=== PATIENT | male | born 1965 | race Caucasian/White ===

== ENCOUNTER 2022-05-06 22:34 | Emergency (ER) | payer OTHER, SELFPAY ==
--- OUTSIDE RECORDS SUMMARY | 2022-05-06 22:38 | XMS REPORT | Continuity of Care Document ---
:1965 Author Organization [facility] t Address [address] [place] [address] Care Team Providers Name Role Phone Leo Leo MD Attending Clinician LEO LEO Attending Clinician Unavailable Doctor Unassigned, [place] Attending Clinician Unavailable Provider, [facility] Attending Clinician Unavailable Naima Yang Attending Clinician Luis Daniel Gilbert Attending Clinician Pcp, Patient Does Not Have A Attending Clinician [phone] Nurse, [facility]gent Attending Clinician Unavailable Pob1, Acute [facility] Attending Clinician Unavailable NAIMA VALE Attending Clinician Unavailable ALDO TAI Attending Clinician Unavailable Lab, [facility] Attending Clinician Unavailable Erik Diamond Attending Clinician ERIK NG Attending Clinician Unavailable Payers Payer Name Policy Type Policy Number Effective Date Expiration Date S ource Problems Condition Condition Condition Status Onset Resolution Last Treating Co mments Source Name Details Category Date Date Treatment Clinician Date Type 2 Type 2 Disease Active Univers diabetes diabetes 7-15 ity of mellitus mellitus 00:00: [place] without without 00 Medical complicati complicati Br anch on, on, without without long-term long-term current current use of use of insulin insulin Obesity Obesity Disease Active Univers (BMI (BMI 7-15 ity of 35.0-39.9 35.0-39.9 [place] without 00 Medical comorbidit comorbidit Br anch y) y) Diabetes Diabetes Disease Active Unive rs due to due to 7-15 ity of undrl undrl 00:00: [place] condition condition 00 Medi ravi w oth w oth Branch diabetic diabetic opth comp opth comp Allergies, Adverse Reactions, Alerts Allergy Allergy Status Severity Reaction(s) Onset Inactive Treating Comm ents Source Name Type Date Date Clinician Penicill Propensi Active Rash Univer s ins ty to 7-15 ity of adverse 00:00: [place] reaction 00 Medical s Branch PENICILL Drug Active Rash Univers INS Class 7-15 ity of 00:00: [place] 00 Medical Branch NO KNOWN Drug Active Univers ALLERGIE Class ity of [facility] Social History Social Habit Start Date Stop Date Quantity Comments Source Exposure to Not sure [facility] SARS-CoV-2 (event) Medica l Branch Tobacco use and 2020-11-03 2020-11-03 Never used [facility] exposure 00:00:00 00:00:00 [facility] Sex [birth year] At [birth year] [facility] 00:00:00 00:00:00 [facility] Smoking Status Start Date Stop Date Source Unknown if ever smoked [facility] Never smoker [facility] Medications Ordered Filled Start Stop Current Ordering Indication Dosage Frequency Signature Comments Components Source Medication Medication Date Date Medication? Clinician (SIG) Name Name codeine-gua 2020- No 10mL Take 10 mL Univers ifenesin 12-08 07-27 by mouth ity of 10-100 mg/5 00:00: 04:59 every 6 [place] mL solution 00 :00 (six) Medical hours as Branch needed for Cough for up to 7 days. Indication s: cough codeine-gua 2020-0 2020- No 10mL Take 10 mL Univers ifenesin 7- 07-27 by mouth ity of 10-100 mg/5 00:00: 04:59 every 6 [place] mL solution 00 :00 (six) Medical hours as Branch needed for Cough for up to 7 days. Indication s: cough codeine-gua 2020-0 2020- No 10mL Take 10 mL Univers ifenesin 7-19 07- by mouth ity of 10-100 mg/5 00:00: 04:59 every 6 [place] mL solution 00 :00 (six) Medical hours as Branch needed for Cough for up to 7 days. Indication s: cough codeine-gua 2020-0 2020- No 10mL Take 10 mL Univers ifenesin 12-08-27 by mouth ity of 10-100 mg/5 00:00: 04:59 every 6 [place] mL solution 00 :00 (six) Medical hours as Branch needed for Cough for up to 7 days. Indication s: cough codeine-gua 2020-0 2020- No 10mL Take 10 mL Univers ifenesin 12-08-27 by mouth ity of 10-100 mg/5 00:00: 04:59 every 6 [place] mL solution 00 :00 (six) Medical hours as Branch needed for Cough for up to 7 days. Indication s: cough codeine-gua 2020-0 2020- No 10mL Take 10 mL Univers ifenesin 12-08 by mouth ity of 10-100 mg/5 00:00: 04:59 every 6 [place] mL solution 00 :00 (six) Medical hours as Branch needed for Cough for up to 7 days. Indication s: cough albuterol 2020-0 Yes [id number] 2{puff} Inhale 2 Univers 90 7-18 Puffs ity of mcg/actuati 00:00: every 6 [place] as on inhaler 00 (six) Medical hours as Branch needed for Wheezing or Shortness of Breath. azithromyci 2020-0 Yes [id number] 250mg Take 1 Univers n 7-18 tablet by ity of (ZITHROMAX 00:00: mouth [place] Z-VELIA) 250 00 daily. Medical mg tablet Take 500 Branch mg day 1, then 250 mg days 2 to 5. albuterol 2020-0 Yes [id number] 2{puff} Inhale 2 Univers 90 7-18 Puffs ity of mcg/actuati 00:00: every 6 [place] as on inhaler 00 (six) Medical hours as Branch needed for Wheezing or Shortness of Breath. azithromyci 2020-0 Yes [id number] 250mg Take 1 Univers n 7-18 tablet by ity of (ZITHROMAX 00:00: mouth [place] Z-VELIA) 250 00 daily. Medical mg tablet Take 500 Branch mg day 1, then 250 mg days 2 to 5. albuterol 2020-0 Yes [id number] 2{puff} Inhale 2 Univers 90 7-18 Puffs ity of mcg/actuati 00:00: every 6 [place] as on inhaler 00 (six) Medical hours as Branch needed for Wheezing or Shortness of Breath. azithromyci 2020-0 Yes [id number] 250mg Take 1 Univers n 7-18 tablet by ity of (ZITHROMAX 00:00: mouth [place] Z-VELIA) 250 00 daily. Medical mg tablet Take 500 Branch mg day 1, then 250 mg days 2 to 5. albuterol 2020-0 Yes [id number] 2{puff} Inhale 2 Univers 90 7-18 Puffs ity of mcg/actuati 00:00: every 6 [place] as on inhaler 00 (six) Medical hours as Branch needed for Wheezing or Shortness of Breath. azithromyci 2020-0 Yes [id number] 250mg Take 1 Univers n 7-18 tablet by ity of (ZITHROMAX 00:00: mouth [place] Z-VELIA) 250 00 daily. Medical mg tablet Take 500 Branch mg day 1, then 250 mg days 2 to 5. albuterol 2020-0 Yes [id number] 2{puff} Inhale 2 Univers 90 7-18 Puffs ity of mcg/actuati 00:00: every 6 [place] as on inhaler 00 (six) Medical hours as Branch needed for Wheezing or Shortness of Breath. azithromyci 2020-0 Yes [id number] 250mg Take 1 Univers n 7-18 tablet by ity of (ZITHROMAX 00:00: mouth [place] Z-VELIA) 250 00 daily. Medical mg tablet Take 500 Branch mg day 1, then 250 mg days 2 to 5. albuterol 2020-0 Yes [id number] 2{puff} Inhale 2 Univers 90 7-18 Puffs ity of mcg/actuati 00:00: every 6 [place] as on inhaler 00 (six) Medical hours as Branch needed for Wheezing or Shortness of Breath. azithromyci 2020-0 Yes [id number] 250mg Take 1 Univers n 7-18 tablet by ity of (ZITHROMAX 00:00: mouth [place] Z-VELIA) 250 00 daily. Medical mg tablet Take 500 Branch mg day 1, then 250 mg days 2 to 5. albuterol 2020-0 Yes [id number] 2{puff} Inhale 2 Univers 90 7-18 Puffs ity of mcg/actuati 00:00: every 6 [place] as on inhaler 00 (six) Medical hours as Branch needed for Wheezing or Shortness of Breath. azithromyci 2020-0 Yes [id number] 250mg Take 1 Univers n 7-18 tablet by ity of (ZITHROMAX 00:00: mouth [place] Z-VELIA) 250 00 daily. Medical mg tablet Take 500 Branch mg day 1, then 250 mg days 2 to 5. albuterol 2020-0 Yes [id number] 2{puff} Inhale 2 Univers 90 7-18 Puffs ity of mcg/actuati 00:00: every 6 [place] as on inhaler 00 (six) Medical hours as Branch needed for Wheezing or Shortness of Breath. azithromyci 2020-0 Yes [id number] 250mg Take 1 Univers n 7-18 tablet by ity of (ZITHROMAX 00:00: mouth [place] Z-VELIA) 250 00 daily. Medical mg tablet Take 500 Branch mg day 1, then 250 mg days 2 to 5. albuterol 2020-0 Yes [id number] 2{puff} Inhale 2 Univers 90 7-18 Puffs ity of mcg/actuati 00:00: every 6 [place] as on inhaler 00 (six) Medical hours as Branch needed for Wheezing or Shortness of Breath. azithromyci 2020-0 Yes [id number] 250mg Take 1 Univers n 7-18 tablet by ity of (ZITHROMAX 00:00: mouth [place] Z-VELIA) 250 00 daily. Medical mg tablet Take 500 Branch mg day 1, then 250 mg days 2 to 5. albuterol 2020-0 Yes [id number] 2{puff} Inhale 2 Univers 90 7-18 Puffs ity of mcg/actuati 00:00: every 6 [place] as on inhaler 00 (six) Medical hours as Branch needed for Wheezing or Shortness of Breath. azithromyci 2020-0 Yes [id number] 250mg Take 1 Univers n 7-18 tablet by ity of (ZITHROMAX 00:00: mouth [place] Z-VELIA) 250 00 daily. Medical mg tablet Take 500 Branch mg day 1, then 250 mg days 2 to 5. albuterol 2020-0 Yes [id number] 2{puff} Inhale 2 Univers 90 7-18 Puffs ity of mcg/actuati 00:00: every 6 [place] as on inhaler 00 (six) Medical hours as Branch needed for Wheezing or Shortness of Breath. azithromyci 2020-0 Yes [id number] 250mg Take 1 Univers n 7-18 tablet by ity of (ZITHROMAX 00:00: mouth [place] Z-VELIA) 250 00 daily. Medical mg tablet Take 500 Branch mg day 1, then 250 mg days 2 to 5. albuterol 2020-0 Yes [id number] 2{puff} Inhale 2 Univers 90 7-18 Puffs ity of mcg/actuati 00:00: every 6 [place] as on inhaler 00 (six) Medical hours as Branch needed for Wheezing or Shortness of Breath. azithromyci 2019-0 Yes [id number] 250mg Take 1 Univers n 7-18 tablet by ity of (ZITHROMAX 00:00: mouth [place] Z-VELIA) 250 00 daily. Medical mg tablet Take 500 Branch mg day 1, then 250 mg days 2 to 5. albuterol 2019-0 Yes [id number] 2{puff} Inhale 2 Univers 90 7-18 Puffs ity of mcg/actuati 00:00: every 6 [place] as on inhaler 00 (six) Medical hours as Branch needed for Wheezing or Shortness of Breath. azithromyci 2019-0 Yes [id number] 250mg Take 1 Univers n 7-18 tablet by ity of (ZITHROMAX 00:00: mouth [place] Z-VELIA) 250 00 daily. Medical mg tablet Take 500 Branch mg day 1, then 250 mg days 2 to 5. albuterol 2020-0 Yes [id number] 2{puff} Inhale 2 Univers 90 7-18 Puffs ity of mcg/actuati 00:00: every 6 [place] as on inhaler 00 (six) Medical hours as Branch needed for Wheezing or Shortness of Breath. azithromyci 2020-0 Yes [id number] 250mg Take 1 Univers n 7-18 tablet by ity of (ZITHROMAX 00:00: mouth [place] Z-VELIA) 250 00 daily. Medical mg tablet Take 500 Branch mg day 1, then 250 mg days 2 to 5. promethazin 2020-0 Yes 10mL Take 10 mL Univers e-codeine 7-18 by mouth 4 ity of 6.25-10 00:00: (four) [place] mg/5 mL 00 times Medical syrup daily as Branch needed for Cough. Indication s: cough albuterol 2020-0 Yes [id number] 2{puff} Inhale 2 Univers 90 7-18 Puffs ity of mcg/actuati 00:00: every 6 [place] as on inhaler 00 (six) Medical hours as Branch needed for Wheezing or Shortness of Breath. azithromyci 2020-0 Yes [id number] 250mg Take 1 Univers n 7-18 tablet by ity of (ZITHROMAX 00:00: mouth [place] Z-VELIA) 250 00 daily. Medical mg tablet Take 500 Branch mg day 1, then 250 mg days 2 to 5. promethazin 2020-0 Yes 10mL Take 10 mL Univers e-codeine 7-18 by mouth 4 ity of 6.25-10 00:00: (four) [place] mg/5 mL 00 times Medical syrup daily as Branch needed for Cough. Indication s: cough albuterol 2020-0 Yes [id number] 2{puff} Inhale 2 Univers 90 7-18 Puffs ity of mcg/actuati 00:00: every 6 [place] as on inhaler 00 (six) Medical hours as Branch needed for Wheezing or Shortness of Breath. azithromyci 2020-0 Yes [id number] 250mg Take 1 Univers n 7-18 tablet by ity of (ZITHROMAX 00:00: mouth [place] Z-VELIA) 250 00 daily. Medical mg tablet Take 500 Branch mg day 1, then 250 mg days 2 to 5. albuterol 2020-0 Yes [id number] 2{puff} Inhale 2 Univers 90 7-18 Puffs ity of mcg/actuati 00:00: every 6 [place] as on inhaler 00 (six) Medical hours as Branch needed for Wheezing or Shortness of Breath. azithromyci 2020-0 Yes [id number] 250mg Take 1 Univers n 7-18 tablet by ity of (ZITHROMAX 00:00: mouth [place] Z-VELIA) 250 00 daily. Medical mg tablet Take 500 Branch mg day 1, then 250 mg days 2 to 5. promethazin 2020-0 2020- No 10mL Take 10 mL Univers e-codeine 7-18 -26 by mouth 4 ity of 6.25-10 00:00: 04:59 (four) [place] mg/5 mL 00 :00 times Medical syrup daily as Branch needed for Cough for up to 7 days. Indication s: cough promethazin 2020-0 2020- No 10mL Take 10 mL Univers e-codeine 7-18 07-19 by mouth 4 ity of 6.25-10 00:00: 00:00 (four) [place] mg/5 mL 00 :00 times Medical syrup daily as Branch needed for Cough. Indication s: cough promethazin 2020-0 2020- No 10mL Take 10 mL Univers e-codeine 7-18 -18 by mouth 4 ity of 6.25-10 00:00: 00:00 (four) [place] mg/5 mL 00 :00 times Medical syrup daily as Branch needed for Cough for up to 7 days. Indication s: cough promethazin 2020-0 2020- No 10mL Take 10 mL Univers e-codeine -18 -18 by mouth 4 ity of 6.25-10 00:00: 00:00 (four) [place] mg/5 mL 00 :00 times Medical syrup daily as Branch needed for Cough for up to 7 days. Indication s: cough promethazin 2020-0 2020- No [id number] 5mL Take 5 mL Univers e-codeine -04 12- by mouth 4 ity of 6.25-10 00:00: 04:59 (four) [place] mg/5 mL 00 :00 times Medical syrup daily as Branch needed for Cough for up to 7 days. Indication s: acute pain promethazin 2020-0 2020- No [id number] 5mL Take 5 mL Univers e-codeine 7-15 -23 by mouth 4 ity of 6.25-10 00:00: 04:59 (four) [place] mg/5 mL 00 :00 times Medical syrup daily as Branch needed for Cough for up to 7 days. Indication s: acute pain promethazin 2020-0 2020- No [id number] 5mL Take 5 mL Univers e-codeine 7-15 07-23 by mouth 4 ity of 6.25-10 00:00: 04:59 (four) [place] mg/5 mL 00 :00 times Medical syrup daily as Branch needed for Cough for up to 7 days. Indication s: acute pain promethazin 2020-0 2020- No [id number] 5mL Take 5 mL Univers e-codeine 7-15 07-23 by mouth 4 ity of 6.25-10 00:00: 04:59 (four) [place] mg/5 mL 00 :00 times Medical syrup daily as Branch needed for Cough for up to 7 days. Indication s: acute pain promethazin 2020-0 2020- No [id number] 5mL Take 5 mL Univers e-codeine 7-15 07-23 by mouth 4 ity of 6.25-10 00:00: 04:59 (four) [place] mg/5 mL 00 :00 times Medical syrup daily as Branch needed for Cough for up to 7 days. Indication s: acute pain promethazin 2020-0 2020- No [id number] 5mL Take 5 mL Univers e-codeine 7-15 07-23 by mouth 4 ity of 6.25-10 00:00: 04:59 (four) [place] mg/5 mL 00 :00 times Medical syrup daily as Branch needed for Cough for up to 7 days. Indication s: acute pain promethazin 2020-0 2020- No [id number] 5mL Take 5 mL Univers e-codeine 7-15 07-23 by mouth 4 ity of 6.25-10 00:00: 04:59 (four) [place] mg/5 mL 00 :00 times Medical syrup daily as Branch needed for Cough for up to 7 days. Indication s: acute pain promethazin 2020-0 2020- No [id number] 5mL Take 5 mL Univers e-codeine 7-15 07-23 by mouth 4 ity of 6.25-10 00:00: 04:59 (four) [place] mg/5 mL 00 :00 times Medical syrup daily as Branch needed for Cough for up to 7 days. Indication s: acute pain promethazin 2020-0 2020- No [id number] 5mL Take 5 mL Univers e-codeine 7-15 07-23 by mouth 4 ity of 6.25-10 00:00: 04:59 (four) [place] mg/5 mL 00 :00 times Medical syrup daily as Branch needed for Cough for up to 7 days. Indication s: acute pain Diethylprop 2020-0 Yes TK 1 T PO U nivers ion HCl 75 6-30 ONCE D ity of mg TbSR 00:00: [place] 00 Medical Branch Diethylprop 2020-0 Yes TK 1 T PO U nivers ion HCl 75 6-30 ONCE D ity of mg TbSR 00:00: [place] 00 Medical Branch Diethylprop 2020-0 Yes TK 1 T PO U nivers ion HCl 75 6-30 ONCE D ity of mg TbSR 00:00: [place] 00 Medical Branch Diethylprop 2020-0 Yes TK 1 T PO U nivers ion HCl 75 6-30 ONCE D ity of mg TbSR 00:00: [place] 00 Medical Branch Diethylprop 2020-0 Yes TK 1 T PO U nivers ion HCl 75 6-30 ONCE D ity of mg TbSR 00:00: [place] 00 Medical Branch Diethylprop 2020-0 Yes TK 1 T PO U nivers ion HCl 75 6-30 ONCE D ity of mg TbSR 00:00: [place] 00 Medical Branch Diethylprop 2020-0 Yes TK 1 T PO U nivers ion HCl 75 6-30 ONCE D ity of mg TbSR 00:00: [place] [facility] Diethylprop 2020-0 Yes TK 1 T PO U nivers ion HCl 75 6-30 ONCE D ity of mg TbSR 00:00: [place] 00 Medical Branch Diethylprop 2020-0 Yes TK 1 T PO U nivers ion HCl 75 6-30 ONCE D ity of mg TbSR 00:00: [place] [facility] Diethylprop 2020-0 Yes TK 1 T PO U nivers ion HCl 75 6-30 ONCE D ity of mg TbSR 00:00: [place] [facility] Diethylprop 2020-0 Yes TK 1 T PO U nivers ion HCl 75 6-30 ONCE D ity of mg TbSR 00:00: [place] 00 Medical Branch Diethylprop 2020-0 Yes TK 1 T PO U nivers ion HCl 75 6-30 ONCE D ity of mg TbSR 00:00: [place] 00 Medical Branch Diethylprop 2020-0 Yes TK 1 T PO U nivers ion HCl 75 6-30 ONCE D ity of mg TbSR 00:00: [place] 00 Medical Branch Diethylprop 2020-0 Yes TK 1 T PO U nivers ion HCl 75 6-30 ONCE D ity of mg TbSR 00:00: [place] [address] Medical Branch Diethylprop 2020-0 Yes TK 1 T PO U nivers ion HCl 75 6-30 ONCE D ity of mg TbSR 00:00: [place] [facility] Diethylprop 2020-0 Yes TK 1 T PO U nivers ion HCl 75 6-30 ONCE D ity of mg TbSR 00:00: [place] 00 Medical Branch Diethylprop 2020-0 Yes TK 1 T PO U nivers ion HCl 75 6-30 ONCE D ity of mg TbSR 00:00: [place] 00 Medical Branch glimepiride 2020-0 Yes TK 1 T PO U nivers 2 mg tablet 6-28 BID ity of 00:00: [place] [facility] glimepiride 2020-0 Yes TK 1 T PO U nivers 2 mg tablet 6-28 BID ity of 00:00: [place] [facility] glimepiride 2020-0 Yes TK 1 T PO U nivers 2 mg tablet 6-28 BID ity of 00:00: [place] [address] Medical Branch glimepiride 2020-0 Yes TK 1 T PO U nivers 2 mg tablet 6- BID ity of 00:00: [place] [address] Medical Branch glimepiride 2020-0 Yes TK 1 T PO U nivers 2 mg tablet 6-28 BID ity of 00:00: [place] [address] Medical Branch glimepiride 2020-0 Yes TK 1 T PO U nivers 2 mg tablet 6-28 BID ity of 00:00: [place] [address] Medical Branch glimepiride 2020-0 Yes TK 1 T PO U nivers 2 mg tablet - BID ity of 00:00: [place] 00 Medical Branch glimepiride 2020-0 Yes TK 1 T PO U nivers 2 mg tablet -28 BID ity of 00:00: [place] [address] Medical Branch glimepiride 2020-0 Yes TK 1 T PO U nivers 2 mg tablet 6-28 BID ity of 00:00: [place] 00 Medical Branch glimepiride 2020-0 Yes TK 1 T PO U nivers 2 mg tablet 6-28 BID ity of 00:00: [place] [address] Medical Branch glimepiride 2020-0 Yes TK 1 T PO U nivers 2 mg tablet 6-28 BID ity of 00:00: [place] [address] Medical Branch glimepiride 2020-0 Yes TK 1 T PO U nivers 2 mg tablet 6-28 BID ity of 00:00: [place] [address] Medical Branch glimepiride 2020-0 Yes TK 1 T PO U nivers 2 mg tablet 6-28 BID ity of 00:00: [place] [facility] glimepiride 2020-0 Yes TK 1 T PO U nivers 2 mg tablet 6-28 BID ity of 00:00: [place] [facility] glimepiride 2020-0 Yes TK 1 T PO U nivers 2 mg tablet 6-28 BID ity of 00:00: [place] [address] Medical Branch glimepiride 2020-0 Yes TK 1 T PO U nivers 2 mg tablet 6-28 BID ity of 00:00: [place] [address] Medical Branch glimepiride 2020-0 Yes TK 1 T PO U nivers 2 mg tablet 6-28 BID ity of 00:00: [address] anastrozole 2020-0 Yes TK 1 T PO U nivers 1 mg tablet 6-24 ONCE A ity of 00:00: [address] anastrozole 2020-0 Yes TK 1 T PO U nivers 1 mg tablet 6-24 ONCE A ity of 00:00: [address] anastrozole 2020-0 Yes TK 1 T PO U nivers 1 mg tablet 6-24 ONCE A ity of 00:00: [address] anastrozole 2020-0 Yes TK 1 T PO U nivers 1 mg tablet 6-24 ONCE A ity of 00:00: [address] anastrozole 2020-0 Yes TK 1 T PO U nivers 1 mg tablet 6-24 ONCE A ity of 00:00: [address] anastrozole 2020-0 Yes TK 1 T PO U nivers 1 mg tablet 6-24 ONCE A ity of 00:00: [address] anastrozole 2020-0 Yes TK 1 T PO U nivers 1 mg tablet 6-24 ONCE A ity of 00:00: [address] anastrozole 2020-0 Yes TK 1 T PO U nivers 1 mg tablet 6-24 ONCE A ity of 00:00: [address] anastrozole 2020-0 Yes TK 1 T PO U nivers 1 mg tablet 6-24 ONCE A ity of 00:00: [address] anastrozole 2020-0 Yes TK 1 T PO U nivers 1 mg tablet 6-24 ONCE A ity of 00:00: [address] anastrozole 2020-0 Yes TK 1 T PO U nivers 1 mg tablet 6-24 ONCE A ity of 00:00: [place] [address] Medical Branch anastrozole 2020-0 Yes TK 1 T PO U nivers 1 mg tablet 6-24 ONCE A ity of 00:00: WEEK [place] [facility] anastrozole 2020-0 Yes TK 1 T PO U nivers 1 mg tablet 6-24 ONCE A ity of 00:00: WEEK [place] [facility] anastrozole 2020-0 Yes TK 1 T PO U nivers 1 mg tablet 6-24 ONCE A ity of 00:00: [place] [facility] anastrozole 2020-0 Yes TK 1 T PO U nivers 1 mg tablet 6-24 ONCE A ity of 00:00: [place] [facility] anastrozole 2020-0 Yes TK 1 T PO U nivers 1 mg tablet 6-24 ONCE A ity of 00:00: [place] [facility] anastrozole 2020-0 Yes TK 1 T PO U nivers 1 mg tablet 6-24 ONCE A ity of 00:00: WEEK [place] [address] Medical Branch INVOKANA 2020-0 Yes TK 1 T PO Univ ers 300 mg 6-13 ONCE D ity of tablet 00:00: [place] [address] Medical Branch INVOKANA 2020-0 Yes TK 1 T PO Univ ers 300 mg 6-13 ONCE D ity of tablet 00:00: [place] [address] Medical Branch INVOKANA 2020-0 Yes TK 1 T PO Univ ers 300 mg 6-13 ONCE D ity of tablet 00:00: [place] [address] Medical Branch INVOKANA 2020-0 Yes TK 1 T PO Univ ers 300 mg 6-13 ONCE D ity of tablet 00:00: [place] [address] Medical Branch INVOKANA 2020-0 Yes TK 1 T PO Univ ers 300 mg 6-13 ONCE D ity of tablet 00:00: [place] [address] Medical Branch INVOKANA 2020-0 Yes TK 1 T PO Univ ers 300 mg 6-13 ONCE D ity of tablet 00:00: [place] [address] Medical Branch INVOKANA 2020-0 Yes TK 1 T PO Univ ers 300 mg 6-13 ONCE D ity of tablet 00:00: [place] [address] Medical Branch INVOKANA 2020-0 Yes TK 1 T PO Univ ers 300 mg 6-13 ONCE D ity of tablet 00:00: [place] [address] Medical Branch INVOKANA 2020-0 Yes TK 1 T PO Univ ers 300 mg 6-13 ONCE D ity of tablet 00:00: [place] [address] Medical Branch INVOKANA 2020-0 Yes TK 1 T PO Univ ers 300 mg 6-13 ONCE D ity of tablet 00:00: [place] [facility] INVOKANA 2020-0 Yes TK 1 T PO Univ ers 300 mg 6-13 ONCE D ity of tablet 00:00: [place] [facility] INVOKANA 2020-0 Yes TK 1 T PO Univ ers 300 mg 6-13 ONCE D ity of tablet 00:00: [place] [facility] INVOKANA 2020-0 Yes TK 1 T PO Univ ers 300 mg 6-13 ONCE D ity of tablet 00:00: [place] [facility] INVOKANA 2020-0 Yes TK 1 T PO Univ ers 300 mg 6-13 ONCE D ity of tablet 00:00: [place] [facility] INVOKANA 2020-0 Yes TK 1 T PO Univ ers 300 mg 6-13 ONCE D ity of tablet 00:00: [place] [facility] INVOKANA 2020-0 Yes TK 1 T PO Univ ers 300 mg 6-13 ONCE D ity of tablet 00:00: [place] [facility] INVOKANA 2020-0 Yes TK 1 T PO Univ ers 300 mg 6-13 ONCE D ity of tablet 00:00: [place] [facility] testosteron 2020-0 Yes INJ 1 ML Un andrew e cypionate 5-16 IM ONCE A ity of 200 mg/mL 00:00: [place] injection Medical Branch testosteron 2020-0 Yes INJ 1 ML Un andrew e cypionate 5-16 IM ONCE A ity of 200 mg/mL 00:00: WEEK [place] injection Medical Branch testosteron 2020-0 Yes INJ 1 ML Un andrew e cypionate 5-16 IM ONCE A ity of 200 mg/mL 00:00: [place] injection Medical Branch testosteron 2020-0 Yes INJ 1 ML Un andrew e cypionate 5-16 IM ONCE A ity of 200 mg/mL 00:00: [place] injection Medical Branch testosteron 2020-0 Yes INJ 1 ML Un andrew e cypionate 5-16 IM ONCE A ity of 200 mg/mL 00:00: WEEK [place] injection Medical Branch testosteron 2020-0 Yes INJ 1 ML Un andrew e cypionate 5-16 IM ONCE A ity of 200 mg/mL 00:00: [place] injection Medical Branch testosteron 2020-0 Yes INJ 1 ML Un andrew e cypionate 5-16 IM ONCE A ity of 200 mg/mL 00:00: WEEK [place] injection Medical Branch testosteron 2020-0 Yes INJ 1 ML Un andrew e cypionate 5-16 IM ONCE A ity of 200 mg/mL 00:00: [place] injection Medical Branch testosteron 2020-0 Yes INJ 1 ML Un andrew e cypionate 5-16 IM ONCE A ity of 200 mg/mL 00:: [place] injection Medical Branch testosteron 2020-0 Yes INJ 1 ML Un andrew e cypionate 5-16 IM ONCE A ity of 200 mg/mL 00:00: [place] injection Medical Branch testosteron 2020-0 Yes INJ 1 ML Un andrew e cypionate 5-16 IM ONCE A ity of 200 mg/mL 00:00: [place] injection Medical Branch testosteron 2020-0 Yes INJ 1 ML Un andrew e cypionate 5-16 IM ONCE A ity of 200 mg/mL 00:00: [place] injection Medical Branch testosteron 2020-0 Yes INJ 1 ML Un andrew e cypionate 5-16 IM ONCE A ity of 200 mg/mL 00:00: [place] injection [facility] Branch testosteron 2020-0 Yes INJ 1 ML Un andrew e cypionate 5-16 IM ONCE A ity of 200 mg/mL 00:00: [place] injection Medical Branch testosteron 2020-0 Yes INJ 1 ML Un andrew e cypionate 5-16 IM ONCE A ity of 200 mg/mL 00:00: [place] injection [facility] Branch testosteron 2020-0 Yes INJ 1 ML Un andrwe e cypionate 5-16 IM ONCE A ity of 200 mg/mL 00:00: [place] injection Medical Branch testosteron 2020-0 Yes INJ 1 ML Un andrew e cypionate 5-16 IM ONCE A ity of 200 mg/mL 00:00: WEEK [place] injection Medical Branch Vital Signs Vital Name Observation Time Observation Value Comments Source Systolic blood 2020-11-03 13:15:00 150 mm[Hg] Univer sity of pressure [facility] Diastolic blood 2020-11-03 13:15:00 87 mm[Hg] Unive rsity of pressure [facility] Heart rate 2020-11-03 13:15:00 75 /min [facility] Body temperature 2020-11-03 13:15:00 37.28 Celina [facility] Respiratory rate 2020-11-03 13:15:00 18 /min [facility] Body height 2020-11-03 13:15:00 195.6 cm [facility] Body weight 2020-11-03 13:15:00 128.277 kg [facility] BMI 2020-11-03 13:15:00 33.54 kg/m2 [facility] Systolic blood 2020-06-17 14:17:00 126 mm[Hg] [facility]iver [facility] Diastolic blood 2020-06-17 14:17:00 80 mm[Hg] Unive rsity of [facility] Heart rate 2020-06-17 14:17:00 74 /min [facility] Body temperature 2020-06-17 14:17:00 36.89 Celina [facility] Respiratory rate 2020-06-17 14:17:00 18 /min [facility] Body height 2020-06-17 14:17:00 195.6 cm [facility] Body weight 2020-06-17 14:17:00 127.007 kg [facility] BMI 2020-06-17 14:17:00 33.20 kg/m2 [facility] Oxygen saturation in 2020-06-17 14:17:00 97 /min University of Arterial blood by [facility] Pulse oximetry Branch Systolic blood 2020-06-17 14:17:00 126 mm[Hg] Univer [facility]ity of [facility] Diastolic blood 2020-06-17 14:17:00 80 mm[Hg] Unive rsity of pressure [facility] Heart rate 2020-06-17 14:17:00 74 /min [facility] Body temperature 2020-06-17 14:17:00 36.89 Celina [facility] Respiratory rate 2020-06-17 14:17:00 18 /min [facility] Body height 2020-06-17 14:17:00 195.6 cm [facility] Body weight 2020-06-17 14:17:00 127.007 kg Universi ty [facility] BMI 2020-06-17 14:17:00 33.20 kg/m2 Universi ty [facility] Oxygen saturation in 2020-06-17 14:17:00 97 /min [facility] of Arterial blood by [facility] Pulse oximetry Branch Systolic blood 2019-12-08 17:43:00 133 mm[Hg] Univer sity of pressure [facility] Diastolic blood 2019-12-08 17:43:00 72 mm[Hg] Unive rsity of pressure [facility] Heart rate 2019-12-08 17:43:00 101 /min Universi ty [facility] Body temperature 2019-12-08 17:43:[address] [facility] Res[facility] rate 2019-12-08 17:43:00 20 /min [facility] Body height 2019-12-08 17:43:00 195.6 cm Universi [facility] Body weight 2019-12-08 17:43:[facility] 2019-12-08 17:43:00 35.57 kg/m2 Universi ty [facility] Oxygen saturation in 2019-12-08 17:43:00 96 /min [facility] Arterial blood by [facility] Pulse oximetry Branch Procedures Procedure Date / Time Performed Performing Clinician Sourc e POCT URINALYSIS AUTO 2020-11-03 13:22:00 Leo Leo [facility] SCANNED LAB RESULTS 2020-11-03 05:01:00 Doctor Unassigned, No Un [facility] acute hospital POCT FLU A AND B 2020-06-17 14:48:[address] [facility] (MOLECULAR) [facility] XR CHEST 2 VW COVID 2019-12-08 18:16:02 Luis Daniel Chiu [facility] Encounters Start End Encounter Admission Attending Care Care Encounter Source Date/Time Date/Time Type Type Clinicians Facility Department ID 2020-11-03 2020-11-03 Office KOBE Leo [id number] Univers 08:04:35 08:40:43 Visit Leo Stevens [id number] [id number] [phone] [facility] [address] [facility] 2020-11-03 2020-11-03 Outpatient R FELIPA [facility] [id number] Univers 08:00:00 08:00:00 LEO ity [facility] 2020-11-03 2020-11-03 Orders Doctor CURRY 1.2.840.114 [id number] Univers 00:00:00 00:00:00 Only Unassigned, ALEJO [id number] ity of [facility] [id number] Dipak as [phone] [address] 2020-06-17 2020-06-17 Urgent Provider, [facility] [id number] 07:58:18 09:28:23 Care [facility] [id number] Care [place] [id number] Professio [phone] [place] [address] [address] 2020-06-17 2020-06-17 Urgent Provider, [facility] [id number] Univers 07:58:18 09:28:23 Care Anene, N[facility] [id number] ity of [place] [id number] Dipak as Professio [phone] [address] Office [address] [facility] 2020-06-17 2020-06-17 Outpatient R [facility] [id number] Univers 08:00:00 08:00:00 ity [facility] 2020-06-17 2020-06-17 Letter Doctor CURRY 1.2.840.114 [id number] 00:00:00 00:00:00 (Out) Unassigned, ALEJO [id number] [facility] 4.2.7.2.686 [phone] [facility] 2020-06-17 2020-06-17 Letter Doctor CURRY 1.2.840.114 [id number] Univers 00:00:00 00:00:00 (Out) Unassigned, ALEJO [id number] ity of [facility] 4.2.7.2.686 Dipak as [phone] [address] 2019-12-30 2019-12-30 Refill Ebrahim, [facility] [id number] 00:00:00 00:00:00 [facility] [id number] [place] [id number] Professio [phone] [place] [address] [address] 2019-12-30 2019-12-30 Refill Ebrahim, [facility] 1.2.840.114 [id number] Univers 00:00:00 00:00:00 [facility] [id number] it y of [place] [id number] Dipak as Professio [phone] [address] Office [address] [facility] 2019-12-10 2019-12-10 Patient Pcp, [place] [id number] Univers 00:00:00 00:00:00 Secure Msg Patient HEALTH [id number] ity of Does Not [place] 4.2.7.2.686 Dipak as Have A City [phone] [facility] 2019-12-10 2019-12-10 Telephone Nurse, Dipak [facility] 1.2.840.114 [id number] Univers 00:00:00 00:00:00 Urgent HEALTH [id number] it [place]2.[place] [phone] [facility] 2019-12-10 2019-12-10 Patient Doctor [facility] 1.2.840.114 [id number] Univers 00:00:00 00:00:00 Secure Msg Unassigned, Health [id number] ity of [place] 4.2.7.2.686 Dipak as Professio [phone] [address] Office [address] [facility] 2019-12-08 2019-12-09 Urgent Pob1, Acute [facility] Clinic [facility] 1. [id number] Univers 12:33:07 12:29:35 Care Anene, N[facility] [id number] ity of [place] [id number] Dipak as Professio [phone] [address] Office [facility] 2019-12-09 2019-12-09 [facility] [id number] Univers 00:00:00 00:00:00 [facility] [id number] it y of [place] [id number] Dipak as Professio [phone] [address] Office [facility] 2019-12-08 2019-12-08 [facility] [id number] Univers 13:01:00 23:59:00 Encounter Luis Daniel [place] [id number] ity of [place] 4.2.7.2.686 [place] [facility] [phone] [facility] [address] [place] 2019-12-08 2019-12-08 Outpatient R KAVIN [facility] [id number] Univers 13:20:00 13:20:00 NAIMA ity [facility] 2019-12-05 2019-12-05 Outpatient R ALDO TAI [facility] [id number] Univers 20:20:00 20:20:00 ity of [facility] 2019-12-03 2019-12-03 Laboratory Lab, Adc Fam Pob I [facility] 1.2. [id number] [id number] Univers 13:42:24 14:02:24 Only [facility] Apprema 350.1.13.10 ity of [place] 4.2.7.2.686 Dipak as Professio [phone] [address] Office [facility] 2019-12-03 2019-12-03 [facility] [id number] Univers 13:40:00 13:40:00 CHINO ity [facility] 2019-12-03 2019-12-03 Letter Doctor ZAPIEN 1.2.840.114 [id number] Univers 00:00:00 00:00:00 (Out) Unassigned, ALEJO 350.1.13.10 ity of [place] [facility] [id number] Dipak as [phone] [address] Results Test Description Test Time Test Comments Results Result Comments Source POCT URINALYSIS, INSTRUMENT 2020-11-03 13:22:00 Test Item Value Reference Range Interpretation Comme nts POCT U SP GRAV (test code = 3255) 1.020 mg/dl 1.005-1.025 POCT PH U (test code = 3254) 5.5 mg/dl 5-8 POCT U LEUK EST (test code = 3263) Negative Negative - Negative POCT U NIT (test code = 3262) Negative Negative - Negative POCT U PROT (test code = 3259) Negtaive Negative - Negative POCT U GLU (test code = 3256) Negative - Negative POCT U KETONE (test code = 3258) Negative Negative - Negative POCT U UROBILI (test code = 3260) 0.2 mg/dl 0.2-1 POCT U BILI (test code = 3261) Negative Negative - Negative POCT U BLD (test code = 3257) Negative Negative - Negative POCT U COLOR (test code = 3266) yellow POCT U APPEAR (test code = 3267) clear Lab Interpretation (test code = 85646-5) Normal [facility] URINALYSIS, [id number] 13:22:00 Test Item Value Reference Range Interpretation Comments POCT U SP GRAV (test code = 1.020 mg/dl 1.005-1.025 3255) POCT PH U (test code = 3254) 5.5 mg/dl 5-8 POCT U LEUK EST (test code = Negative Negative - Negative 3263) POCT U NIT (test code = 3262) Negative Negative - Negative POCT U PROT (test code = Negtaive Negative - Negative 3259) POCT U GLU (test code = 3256) Negative - Negative POCT U KETONE (test code = Negative Negative - Negative 3258) POCT U UROBILI (test code = 0.2 mg/dl 0.2-1 3260) POCT U BILI (test code = Negative Negative - Negative 3261) POCT U BLD (test code = 3257) Negative Negative - Negative POCT U COLOR (test code = yellow 3266) POCT U APPEAR (test code = clear 3267) Lab Interpretation (test code Normal = 63851-7) [facility] FLU A AND B (MOLECULAR)2020-06-17 14:48:00 Test Item Value Reference Range Interpretation Comments POCT INFLUENZA A (test code = Negative Negative - Negative 3840) POCT INFLUENZA B (test code = Negative Negative - Negative 3841) Lab Interpretation (test code = Normal 39973-8) [facility] VW [id number] 18:31:09 Multifocal small ill-defined opacities predominantly in the mid/lower lobesconcerning for atypical/viral infection including Covid-19 pneumonia.Correlate clinically. Disclaimer: Generally, the findings on chest imaging in COVID-19 are notspecific, and overlap with other infections, including influenza, H1N1,SARS and MERS. According to the Centers for Disease Control (CDC) and recent statement ofthe [place] [employer], viral testing remains the only specificmethod of diagnosis. Confirmation with the viral test is required, even ifradiologic findings are suggestive of COVID-[address]. Preliminary Report Dictated by Resident: Gabino Ruffin MD., have reviewed this study and agree with theabove report.XR CHEST 2 VW COVID CLINICAL INDICATION: COVID +, worsening cough COMPARISON: None FINDINGS: Multifocal peripheral opacities within the mid/lower lobe predominanc econcerning for atypical/viral infection. No pleural effusion orpneumothorax. Prominence of the pulmonary hilar vasculature with a slightlynodular appearance, nonspecific but possibly lymphadenopathy. The cardiomediastinal silhouette is normal in size. No acute bony abnormality. [facility], Radiant Results Inft User - 12/08/2019 1:32 PM CDTXR CHEST 2 VW COVIDCLINICAL INDICATION: COVID +, worsening cough COMPARISON: NoneFINDINGS:Multifocal peripheral opacities within the mid/lower lobe predominanceconcerning for atypical/viral infection. No pleural effusion orpneumothorax. Prominence of the pulmonary hilar vasculature with a slightlynodular appearance, nonspecific but possibly lymphadenopathy.The cardiomediastinal silhouette is normal in size.No acute bony abnormality.IMPRESSIONMultifocal small ill-defined opacities predominantly in the mid/lower lobesconcerning for atypical/viral infection including Covid-19 pneumonia.Correlate clinically.Disclaimer: Generally, the findings on chest imaging in COVID-19 are notspecific, and overlap with other infections, including influenza, H1N1,SARS and MERS.According to the Centers for Disease Control (CDC) and recent statement ofthe [place] [employer], viral testing remains the only specificmethod of diagnosis. Confirmation with the viral test is required, even ifradiologic findings are suggestive of COVID-[address]Preliminary Report Dictatedby Resident: Gabino Stanley MD., have reviewed this study and agree with theabove report. [facility]
[2022-05-06] MEDS ORDERED: ASPIRIN 81 MG CHEWABLE TABLET ONE (22:59)
[2022-05-06] MEDS ORDERED: CLOPIDOGREL 75 MG TABLET ONE (22:59)
[2022-05-06] MEDS ORDERED: TENECTEPLASE 50 MG/10 ML VIAL IV ONE (23:00)
--- NOTE | 2022-05-06 23:00 | ER ---
Nurse's Notes [facility] Name: Joe Chowdhury Jr Age: 56 yrs Sex: Male : 1965 Arrival Date: 05/06/2022 Time: 22:43 Bed 12 Private MD: Diagnosis: ST elevation (STEMI) myocardial infarction of unspecified site Presentation: 05/06 22:50 Chief complaint: Patient states: I have been having some chest pain and I've been kd3 sweating a lot. Coronavirus screen: Vaccine status:. Ebola Screen: No symptoms or risks identified at this time. Initial Sepsis Screen: Does the patient meet any 2 criteria? No. Patient's initial sepsis screen is negative. Does the patient have a suspected source of infection? No. Patient's initial sepsis screen is negative. Risk Assessment: Do you want to hurt yourself or someone else? Patient reports no desire to harm self or others. Onset of symptoms was May 06, 2022. 22:50 Method Of Arrival: Ambulatory kd3 22:50 Acuity: FREDRICK 2 kd3 Triage Assessment: 05/07 00:03 General: Appears distressed, Behavior is calm, cooperative. Pain: Complains of pain in kd3 mid-sternal area. Neuro: Level of Consciousness is awake, alert, obeys commands, Oriented to person, place, time, situation. Cardiovascular: Capillary refill < 3 seconds in bilateral fingers. Respiratory: Airway is patent Trachea midline Respiratory effort is even, unlabored, Respiratory pattern is regular, symmetrical. Historical: - Allergies: 00:04 No Known Allergies; kd3 - Immunization history:: Adult Immunizations up to date. - Social history:: Smoking status: unknown. Screenin/15 23:58 [facility] ED Fall Risk Assessment (Adult) History of falling in the last 3 months, kd3 including since admission No falls in past 3 months (0 pts) Confusion or Disorientation No (0 pts) Intoxicated or Sedated No (0 pts) Impaired Gait No (0 pts) Mobility Assist Device Used No (0 pt) Altered Elimination No (0 pt) Score/Fall Risk Level 0 - 2 = Low Risk. Humpty Dumpty Scale Fall Assessment Tool (age< 18yrs) Age 13 years and above (1 pt) Gender Male (2 pts) Diagnosis Other diagnosis (1 pt) Cognitive Impairments Oriented to own ability (1 pt) Environmental Factors Patient placed in bed (2 pts) Response to Surgery/Sedation/Anesthesia More than 48 hours/ None (1 pt) Medication Usage Other medications/ None (1 pt) Fall Risk Score/ Level Low Fall Risk: </= 11 points. Abuse screen: Denies threats or abuse. Denies injuries from another. Nutritional screening: No deficits noted. Tuberculosis screening: No symptoms or risk factors identified. Fall Risk No fall in past 12 months (0 pts). No secondary diagnosis (0 pts). IV access (20 points). Ambulatory Aid- None/Bed Rest/Nurse Assist (0 pts). Gait- Normal/Bed Rest/Wheelchair (0 pts) Mental Status- Oriented to own ability (0 pts). Total Jasmine Fall Scale indicates No Risk (0-24 pts). Assessment: 23:29 Reassessment: report called to Jana JOVEL for [facility] CCU 2 Bed 18. bb Vital Signs: 22:50 BP 212 / 113; Pulse 73; Resp 23; Temp 98.2(TE); Pulse Ox 100% on R/A; Weight 124.74 kg; kd3 23:19 BP 180 / 125; Pulse 102; Resp 18; Pulse Ox 100% on R/A; kd3 23:20 BP 181 / 99; Pulse 98; Resp 18; Pulse Ox 100% on R/A; kd3 23:25 BP 178 / 98; Pulse 75; Resp 19; Pulse Ox 100% on R/A; kd3 23:38 BP 167 / 97; Pulse 57; Resp 20; Pulse Ox 100% on R/A; kd3 ED Course: 21:[address] [facility]. wm 22:43 Patient arrived in ED. kd3 22:44 Enrique Virk NP is PHCP. pm1 22:44 Flakito Chauhan MD is Attending Physician. pm1 22:50 Radha Patricio, BECKA is Primary Nurse. kd3 22:54 Triage completed. kd3 23:05 Inserted saline lock: 20 gauge in left forearm, using aseptic technique. Blood kl collected. 23:15 Pt accepted for transfer by Dr. Ludwin Sharma \T\ [id number]. wm 23:50 XRAY Chest (1 view) In Process Unspecified. EDMS 23:58 No provider procedures requiring assistance completed. Patient transferred, IV remains kd3 in place. 23:58 Patient has correct armband on for positive identification. Bed in low position. kd3 05/07 00:04 Arm band placed on right wrist. kd3 Administered Medications: 05/06 11:19 Drug: Metoprolol 5 mg Route: IVP; Site: right antecubital; kd3 11:43 Drug: Heparin (CT-Bolus with thrombolytic) - HEParin 60 units/kg {Co-Signature: edinson tinoco (Radha Patricio RN).} Route: IVP; Site: right antecubital; 22:55 CANCELLED (Physician Discretion): NS 0.9% 1000 ml IV at 1000 ml once pm1 23:00 Drug: NS 0.9% 1000 ml Route: IV; Rate: 1000 ml; Site: left forearm; bb 23:04 Drug: Zofran (Ondansetron) 4 mg Route: IVP; Site: left forearm; bb 23:07 Drug: Aspirin Chewable Tablet 324 mg Route: PO; bb 23:07 Drug: Tenecteplase 50 mg {Co-Signature: edinson (Radha Patricio RN).} Route: IV; Rate: kl calculated rate; Site: right antecubital; 23:10 Drug: morphine 4 mg Route: IVP; Infused Over: 4 mins; Site: left forearm; bb 23:11 Drug: PlaVIX (clopidogrel) 300 mg Route: PO; bb 23:25 Drug: Metoprolol 5 mg Route: IVP; Site: right antecubital; kd3 23:43 Drug: Heparin (CT Drip) 12 units/kg/hr - (HEParin 51976 units, D5W 500 ml) kl {Co-Signature: edinson (Radha Patricio RN).} Route: IV; Rate: calculated rate; Site: right antecubital; 23:46 Drug: Nitro Drip 5 mcg/min - (Nitroglycerin 50 mg, D5W 250 ml) Route: IV; Rate: 5 kd3 mcg/min; Site: left forearm; Medication: 05/07 00:04 VIS not applicable for this client. kd3 Outcome: 05/06 22:59 ER care complete, transfer ordered by MD. pm1 23:58 Transferred by helicopter kd3 23:58 Condition: stable 23:58 Discharge instructions given to patient, family, Instructed on follow up and referral plans. the need for transfer, Demonstrated understanding of instructions, follow-up care. 05/07 00:05 Patient left the ED. kd3 Signatures: Dispatcher [employer] EDMarianne Arzate, My Page RN, RN RN bb Marinas, Patrick, TRANSFORMER COIL WINDER TRANSFORMER COIL WINDER pm1 Melissa Matthew Kyli, RN RN kd3 Radha Patricio RN kd3 Corrections: (The following items were deleted from the chart) 00:01 05/06 23:19 BP 180 / 125; Pulse 57bpm; Resp 18bpm; Pulse Ox 100% RA; kd3 kd3
--- NOTE | 2022-05-06 23:00 | EDPHYS ---
Physician Documentation [facility] Name: Joe Chowdhury Jr Age: 56 yrs Sex: Male : 1965 Arrival Date: 05/06/2022 Time: 22:43 Bed 12 Private MD: ED Physician Flakito Chauhan HPI: 05/06 22:49 This 56 yrs old Male presents to ER via Ambulatory with complaints of Chest pain. pm1 22:49 The patient or guardian reports chest pain that is located primarily in the mid-sternal pm1 area. Onset: today, at 21:30. The pain does not radiate. Associated signs and symptoms: Pertinent positives: diaphoresis, shortness of breath, Pertinent negatives: nausea, vomiting. 22:49 The chest pain is described as a pressure. Duration: The patient or guardian reports a pm1 single episode, that is still ongoing, but improving. Modifying factors: The symptoms are alleviated by nothing. the symptoms are aggravated by nothing. Severity of pain: in the emergency department the pain has improved. The patient has not experienced similar symptoms in the past. The patient has not recently seen a physician. Historical: - Allergies: 05/07 00:04 No Known Allergies; kd3 - Immunization history:: Adult Immunizations up to date. - Social history:: Smoking status: unknown. ROS: 05/06 22:49 Constitutional: Negative for fever, chills, and weight loss. pm1 Abdomen/GI: Negative for abdominal pain, nausea, vomiting, diarrhea, and constipation, Back: Negative for injury and pain, MS/Extremity: Negative for injury and deformity, Skin: Negative for injury, rash, and discoloration, Neuro: Negative for headache, weakness, numbness, tingling, and seizure. Cardiovascular: Positive for chest pain, Negative for edema, palpitations. Respiratory: Positive for shortness of breath. All other systems are negative. Exam: 22:49 Constitutional: This is a well developed, well nourished patient who is awake, alert, pm1 and in no acute distress. Head/Face: Normocephalic, atraumatic. 22:49 Skin: Warm, dry with normal turgor. Normal color with no rashes, no lesions, and no evidence of cellulitis. MS/ Extremity: Pulses equal, no cyanosis. Neurovascular intact. Full, normal range of motion. 22:49 Eyes: Exam is negative for acute changes, Periorbital structures: no acute changes, Extraocular movements: no acute changes, Conjunctiva: no acute changes, no injection. 22:49 Cardiovascular: Exam negative for acute changes, Rate: normal, Rhythm: regular, Pulses: no pulse deficits are appreciated, Edema: is not appreciated. 22:49 Respiratory: Exam negative for acute changes, respiratory distress, shortness of breath, Breath sounds: are clear throughout. 22:49 Abdomen/GI: Exam negative for acute changes, Inspection: obese scar(s), are noted in the umbilical area and suprapubic area, Palpation: abdomen is soft and non-tender. 22:49 Neuro: Exam negative for acute changes, Orientation: is normal, Mentation: is normal, Motor: is normal, moves all fours. 22:49 ECG was reviewed by the Attending Physician. pm1 Vital Signs: 22:50 BP 212 / 113; Pulse 73; Resp 23; Temp 98.2(TE); Pulse Ox 100% on R/A; Weight 124.74 kg; kd3 23:19 BP 180 / 125; Pulse 102; Resp 18; Pulse Ox 100% on R/A; kd3 23:20 BP 181 / 99; Pulse 98; Resp 18; Pulse Ox 100% on R/A; kd3 23:25 BP 178 / 98; Pulse 75; Resp 19; Pulse Ox 100% on R/A; kd3 23:38 BP 167 / 97; Pulse 57; Resp 20; Pulse Ox 100% on R/A; kd3 MDM: 22:44 Patient medically screened. pm1 22:58 Data reviewed: vital signs. Data interpreted: Pulse oximetry: on room air is 100 %. pm1 Interpretation: normal. 05/06 22:49 Order name: Basic Metabolic Panel; Complete Time: 23:37 pm1 05/06 22:49 Order name: CBC with Diff; Complete Time: 23:34 pm1 05/06 22:49 Order name: LFT's; Complete Time: 23:37 pm1 05/06 22:49 Order name: Magnesium; Complete Time: 23:37 pm1 05/06 22:49 Order name: NT PRO-BNP; Complete Time: 23:37 pm1 05/06 22:49 Order name: PT-INR; Complete Time: 23:34 pm1 05/06 22:49 Order name: Troponin HS; Complete Time: 23:37 pm1 05/06 22:49 Order name: XRAY Chest (1 view) pm1 05/06 22:57 Order name: SARS RAPID; Complete Time: 23:41 pm1 05/06 23:02 Order name: Glucose, Ancillary Testing; Complete Time: 23:15 EDMS 05/06 22:49 Order name: Cardiac monitoring; Complete Time: 23:47 pm1 05/06 22:49 Order name: EKG - Nurse/Tech; Complete Time: 23:47 pm1 05/06 22:49 Order name: IV Saline Lock; Complete Time: 23:47 pm1 05/06 22:49 Order name: Labs collected and sent; Complete Time: 23:47 pm1 05/06 22:49 Order name: O2 Per Protocol; Complete Time: 23:58 pm1 05/06 22:49 Order name: O2 Sat Monitoring; Complete Time: 23:47 pm1 EC:49 Rate is 74 beats/min. Rhythm is regular, Normal Sinus Rhythm. QRS [place] is Normal. SD pm1 interval is normal. QRS interval is normal. QT interval is normal. ST Segment is elevated in leads V2, V3, V4, V5. Clinical impression: STEMI. Reviewed by me. Administered Medications: 11:19 Drug: Metoprolol 5 mg Route: IVP; Site: right antecubital; kd3 11:43 Drug: Heparin (IN-Bolus with thrombolytic) - HEParin 60 units/kg {Co-Signature: kd3 kl (Radha Patricio RN).} Route: IVP; Site: right antecubital; 22:55 CANCELLED (Physician Discretion): NS 0.9% 1000 ml IV at 1000 ml once pm1 23:00 Drug: NS 0.9% 1000 ml Route: IV; Rate: 1000 ml; Site: left forearm; bb 23:04 Drug: Zofran (Ondansetron) 4 mg Route: IVP; Site: left forearm; bb 23:07 Drug: Aspirin Chewable Tablet 324 mg Route: PO; bb 23:07 Drug: Tenecteplase 50 mg {Co-Signature: kd3 (Radha Patricio RN).} Route: IV; Rate: kl calculated rate; Site: right antecubital; 23:10 Drug: morphine 4 mg Route: IVP; Infused Over: 4 mins; Site: left forearm; bb 23:11 Drug: PlaVIX (clopidogrel) 300 mg Route: PO; bb 23:25 Drug: Metoprolol 5 mg Route: IVP; Site: right antecubital; kd3 23:43 Drug: Heparin (IN Drip) 12 units/kg/hr - (HEParin 05577 units, D5W 500 ml) kl {Co-Signature: kd3 (Radha Patricio RN).} Route: IV; Rate: calculated rate; Site: right antecubital; 23:46 Drug: Nitro Drip 5 mcg/min - (Nitroglycerin 50 mg, D5W 250 ml) Route: IV; Rate: 5 kd3 mcg/min; Site: left forearm; Disposition: 23:46 Critical Care:. alicia Disposition Summary: 05/06/22 22:59 Transfer Ordered Transfer Location: [facility] pm1 Reason: Higher level of care pm1 Condition: Serious pm1 Problem: new pm1 Symptoms: have improved pm1 Accepting Physician: (05/07/22 00:05) kd3 Diagnosis - ST elevation (STEMI) myocardial infarction of unspecified site pm1 Forms: - Medication Reconciliation Form pm1 - SBAR form pm1 Critical care time excluding procedures: 23:46 Critical care time: Bedside Care: 30 minutes, Consultation: 10 minutes, [facility] alicia Intervention: 10 minutes. Total time: 50 minutes Signatures: Dispatcher [employer] Marianne Aldana RN RN kl Anderson, Corey, MD MD cha Ballard, Brenda, RN RN bb Marinas, Patrick, RACHEL [employer] pm1 Radha Patricio RN RN kd3 Radha Patricio RN kd3 Corrections: (The following items were deleted from the chart) 22:55 22:54 NS 0.9% 1000 ml IV at 1000 ml once ordered. pm1 pm1 05/07 00:05 05/06 22:59 MD brown kd3
[2022-05-06] MEDS ORDERED: NA CHLORIDE 0.9% 1,000 ML ONE (23:05)
[2022-05-06] MEDS ORDERED: ONDANSETRON 4 MG/2 ML VIAL ONE (23:09)
[2022-05-06] MEDS ORDERED: MORPHINE 4 MG/ML SYR ONE (23:09)
[2022-05-06 23:10] LABS: Absolute Lymphocytes (CBC) 2.6 K/uL (0.7-4.9); Hematocrit 54.7 % (39.6-49.0); MCV 88.3 fL (80-100); MPV 7.6 fL (7.6-11.3)
[2022-05-06] MEDS ORDERED: METOPROLOL TARTRATE 5 MG/5 ML INJ IV ONE (23:17)
[2022-05-06 23:22] LABS: Protime INR 1.01
[2022-05-06] MEDS ORDERED: NITROGLYCERIN/D5W 50 MG/250 ML BTL IV ONE (23:32)
[2022-05-06] MEDS ORDERED: HEPARIN 5000 UNIT/ML 1 ML VIAL ONE (23:32)
[2022-05-06] MEDS ORDERED: HEPARIN/D5W 25,000 UNIT/500 ML BAG IV ONE (23:32)
[2022-05-06 23:35] LABS: Albumin 4.5 g/dL (3.4-5.0); Bilirubin Direct 0.1 mg/dL (0-0.2); Bilirubin Total 0.6 mg/dL (0.2-1.0); Magnesium 2.2 mg/dL (1.6-2.4); Potassium 3.8 mmol/L (3.5-5.1); Protein, Total 8.8 g/dL (6.4-8.2)
[2022-05-06 23:36] LABS: Troponin High Sensitivity 65.9 pg/mL (<58.9)
[2022-05-06 23:40] LABS: SARS-CoV-2 Antigen Rapid Res Negative (Negative)
[2022-05-07 00:14] VITALS: O2SAT 100
[2022-05-07 00:15] VITALS: TEMP 98.2
[2022-05-07 00:20] VITALS: BP 167/97
--- NOTE | 2022-05-07 17:25 | RAD REPORT ---
EXAM DESCRIPTION: RAD - Chest Single View - 05/06/2022 11:49 pm CLINICAL HISTORY: 56 years Male CHEST PAIN COMPARISON: None TECHNIQUE: AP view of the chest was obtained. FINDINGS: Cardiac silhouette is prominent in size. Central vessels are moderately increased. No effusions bilaterally. Streaky perihilar opacities bilaterally. IMPRESSION: Moderate central congestion. Bilateral perihilar atelectatic change versus infiltrate. Electronically signed by: Kierra Gardner MD 05/07/2022 12:00 AM [employer] Due to temporary technical issues with the PACS/Fluency reporting system, reports are being signed by the in house radiologists without review as a courtesy to insure prompt reporting. The interpreting radiologist is fully responsible for the content of the report.
== END 2022-05-07 00:05 | disposition short-term general hospital (02) ==
LOC: ER 22:34
DX: I21.3 ST elevation (STEMI) myocardial infarction of unspecified site (principal); Z20.822 Contact with and (suspected) exposure to COVID-19
CPT/HCPCS: 92977; 85025; 80048; 36415; 83735; 85610; 82947; 80076; 84484; 83880; 71045; 99285; 87811; J1644 ×2; J3101; J7030; J2405

== ENCOUNTER 2023-04-13 20:24 | Emergency (ER) | payer OTHER ==
--- OUTSIDE RECORDS SUMMARY | 2023-04-13 20:34 | XMS REPORT | Continuity of Care Document ---
:1965 Author Organization [facility] t Address [address] [place] [address] Care Team Providers Name Role Phone Philomena Landis DO Primary Care Physician DIMA SHARMA Attending Clinician Unavailable Gerber Guzman MD Attending Clinician Dima Sharma MD Attending Clinician Ada Henriquez Attending Clinician Unavailable My Chavira MA Attending Clinician Unavailable KALEN BOND Attending Clinician Unavailable Julia Ball RN Attending Clinician Unavailable AUTUMN RIVERA Attending Clinician Unavailable Dima Sharma MD Attending Clinician Autumn Rivera MD Attending Clinician Racheal Miranda Attending Clinician Renny Campbell MD Attending Clinician RNENY CAMPBELL Attending Clinician Unavailable Doctor Unassigned, [place] Attending Clinician Unavailable Provider, [facility] Attending Clinician Unavailable Isela Yang Attending Clinician Luis Daniel Gilbert Attending Clinician Pcp, Patient Does Not Have A Attending Clinician [phone] Nurse, Dipak Urgent Attending Clinician Unavailable Pob1, Acute [facility] Attending Clinician Unavailable ISELA ESCOBEDO Attending Clinician Unavailable ALDO TAI Attending Clinician Unavailable Lab, [facility] Pob I Attending Clinician Unavailable Erik Diamond Attending Clinician ERIK NG Attending Clinician Unavailable DIMA SHARMA Admitting Clinician Unavailable Payers Payer Name Policy Type Policy Number Effective Date Expiration Date S ruth ann [employer] [id number] 2022 00:00:00 ACCESS Problems Condition Condition Condition Status Onset Resolution Last Treating Co mments Source Name Details Category Date Date Treatment Clinician Date STEMI (ST STEMI (ST Disease Recurre 2021-[address] elevation elevation nce 2-18 [facility] myocardial myocardial 00:00: Me dical infarction infarction 00 Ce nter ) ) CAD CAD Disease Active 2021-[address] [facility] (coronary (coronary 2-16 [facility] artery artery 00:00: Medical disease) disease) 00 Center Type 2 Type 2 Disease Active Univers diabetes diabetes 7-15 ity of mellitus mellitus 00:00: [place] without without 00 Medical complicati complicati Br anch on, on, without without long-term long-term current current use of use of insulin insulin Obesity Obesity Disease Active Univers (BMI (BMI 7-15 ity of 35.0-39.9 35.0-39.9 [place] without [place] Medical comorbidit comorbidit Br anch y) y) Diabetes Diabetes Disease Active Unive rs due to due to 7-15 ity of undrl undrl 00:00: [place] condition condition 00 Medi ravi w oth w oth Branch diabetic diabetic opth comp opth comp Allergies, Adverse Reactions, Alerts Allergy Allergy Status Severity Reaction(s) Onset Inactive Treating Comm ents Source Name Type Date Date Clinician PENICILL Allergy Active 2021-05 [facility] IN 2-16 00:00: 00 Penicill Propensi Active 2021-[address] [facility] [address] in ty to 2-16 [facility] adverse 00:00: Medical reaction 00 Center s Penicill Propensi Active Rash Univer s ins ty to 7-15 ity of adverse 00:00: [place] reaction 00 Medical s Branch PENICILL Drug Active Rash 2020-0 Univers INS Class 7-15 ity of 00:00: [place] 00 Medical Branch Penicill Propensi Active Rash 2020-0 Univer s ins ty to 7-15 ity of adverse 00:00: [place] reaction 00 Medical s Branch Penicill Propensi Active Rash 2020-0 Method i ins ty to 7-15 st adverse 00:00: Hospita reaction 00 l s to drug NO KNOWN Drug Active Univers ALLERGIE Class ity of S [facility] [id number] Drug Active Unknown Danyelle 85 allergy [facility] [place] Family History Family Member Diagnosis Comments Start Date Stop Date Source Natural father [facility] Natural father Heart attack [facility] Natural father Hyperlipidemia [facility] Natural father Hypertension [facility] Natural mother Bipolar disorder [facility] Social History Social Habit Start Date Stop Date Quantity Comments Source [facility] of [facility] [place] Sexual [facility] Tobacco use and 2022-05-21 2022-05-21 Former smokeless [facility] exposure 00:00:00 00:00:00 tobacco user [facility] Alcohol intake 2022-05-20 2022-05-20 Ex-drinker [facility] 00[facility]:00 00:00:00 (finding) [facility] History of Social 2022-05-20 2022-05-[address] [facility] function 00:00:00 00:00:00 [facility] Alcohol Comment 2022-05-07 2022-05-07 Quit for over a [facility] 00:00:00 00:00:00 year [facility] Exposure to 2020-10-04 2020-11-03 Not sure University SARS-CoV-2 (event) 00:00:00 08:14:00 [facility] Sex Assigned At [address] [facility] 00:00:00 00:00:00 [facility] Smoking Status Start Date Stop Date Source Tobacco smoking [facility] xa consumption unknown Medical [facility] ch Ex-smoker 2022-05-21 00:00:00 2022-05-21 [facility] Never smoked tobacco [facility] Medications Ordered Filled Start Stop Current Ordering Indication Dosage Frequency Signature Comments Components Source Medication Medication Date Date Medication? Clinician (SIG) Name Name alirocumab Yes [id number] 150mg Q14D Inject 1 [facility] (Praluent 4-27 mL ([address] Pen) 150 00:00: total) Hospita mg/mL pen 00 under the l injector skin every subcutaneou 14 s injection (fourteen) days. alirocumab Yes [id number] 150mg Q14D Inject 1 [facility] (Praluent 4-27 mL ([address] Pen) 150 00:00: total) Hospita mg/mL pen 00 under the l injector skin every subcutaneou 14 s injection (fourteen) days. metFORMIN Yes [id number] 1000mg QD Take 2 [facility] XR 4-[address] (GLUCOPHAGE 00:00: (1,000 mg H ospita -XR) 500 mg 00 total) by l 24 hr mouth tablet daily with breakfast. metFORMIN 2022- Yes [id number] 1000mg QD Take 2 [facility] XR 4-[address] (GLUCOPHAGE 00:00: (1,000 mg H ospita -XR) 500 mg 00 total) by l 24 hr mouth tablet daily with breakfast. alirocumab 2022- No [id number] 150mg Q14D Inject 1 [facility] (Praluent 4-05 04-27 mL ([address] Pen) 150 00:00: 00:00 total) Hospit a mg/mL pen 00 :00 under the l injector skin every subcutaneou 14 s injection (fourteen) days. alirocumab 2022- No [id number] 150mg Q14D Inject 1 [facility] (Praluent 4-05 04-27 mL ([address] Pen) 150 00:00: 00:00 total) Hospit a mg/mL pen 00 :00 under the l injector skin every subcutaneou 14 s injection (fourteen) days. metFORMIN 0 2022- No [id number] 1000mg QD Take 2 [facility] XR 4-05 04-[address] (GLUCOPHAGE 00:00: 00:00 (1,000 mg Hospita -XR) 500 mg 00 :00 total) by l 24 hr mouth tablet daily with breakfast. metFORMIN 0 3- No [id number] 1000mg QD Take 2 [facility] XR 4-05 04-[address] (GLUCOPHAGE 00:00: 00:00 (1,000 mg Hospita -XR) 500 mg 00 :00 total) by l 24 hr mouth tablet daily with breakfast. clopidogreL 2023-0 Yes 75mg QD Take 1 Meth maxwell (PLAVIX) 75 3-23 tablet (75 st mg tablet 00:00: mg total) Hos cecelia 00 by mouth l daily. losartan 2023-0 Yes 50mg QD Take 1 [facility] (COZAAR) 50 3-23 tablet (50 st MG tablet 00:00: mg total) Hos cecelia 00 by mouth l daily. rosuvastati 2023-0 Yes 20mg QD Take 1 Meth maxwell n (CRESTOR) 3-23 tablet (20 st 20 mg 00:00: mg total) Hospita tablet 00 by mouth l daily. dapaglifloz 2023-0 Yes [id number] 10mg QD Take 1 [facility] in 3-23 tablet ( () 00:00: mg total) Hos cecelia 10 mg 00 by mouth l tablet daily. carvediloL 2023-0 Yes 25mg Q.5D Take 1 Metho di (COREG) 25 3-23 tablet (25 st MG tablet 00:00: mg total) Hos cecelia 00 by mouth 2 l (two) times a day. carvediloL 2023-0 Yes 25mg Q.5D Take 1 Metho di (COREG) 25 3-23 tablet (25 st MG tablet 00:00: mg total) Hos cecelia 00 by mouth 2 l (two) times a day. clopidogreL 2023-0 Yes 75mg QD Take 1 Meth maxwell (PLAVIX) 75 3-23 tablet (75 st mg tablet 00:00: mg total) Hos cecelia 00 by mouth l daily. losartan 2023-0 Yes 50mg QD Take 1 [facility] (COZAAR) 50 3-23 tablet (50 st MG tablet 00:00: mg total) Hos cecelia 00 by mouth l daily. rosuvastati 2023-0 Yes 20mg QD Take 1 Meth maxwell n (CRESTOR) 3-23 tablet (20 st 20 mg 00:00: mg total) Hospita tablet 00 by mouth l daily. dapaglifloz 2023-0 Yes [id number] 10mg QD Take 1 [facility] in 3-23 tablet (10 () 00:00: mg total) Hos cecelia 10 mg 00 by mouth l tablet daily. evolocumab 2022- No [id number] 140mg Q14D Inject 1 [facility] (Repatha 3-23 04-05 mL ([address] SureClick) 00:00: 00:00 total) Hosp andrea 140 mg/mL 00 :00 under the l pen skin every injector 14 injection (fourteen) days. metFORMIN 2022- No [id number] 500mg QD Take 1 [facility] XR 3-23 04-[address] (GLUCOPHAGE 00:00: 00:00 (500 mg Ho spita -XR) 500 mg 00 :00 total) by l 24 hr mouth tablet daily with breakfast. evolocumab 2022- No [id number] 140mg Q14D Inject 1 [facility] (Repatha 3-23 04-05 mL ([address] SureClick) 00:00: 00:00 total) Hosp andrea 140 mg/mL 00 :00 under the l pen skin every injector 14 injection (fourteen) days. metFORMIN 2022- No [id number] 500mg QD Take 1 [facility] XR 3-23 04-[address] (GLUCOPHAGE 00:00: 00:00 (500 mg Ho spita -XR) 500 mg 00 :00 total) by l 24 hr mouth tablet daily with breakfast. alirocumab 2021-05- No [id number] 150mg Q14D Inject 1 [facility] (Praluent 2-30 04-05 mL ([address] Pen) 150 00:00: 00:00 total) Hospit a mg/mL pen 00 :00 under the l injector skin every subcutaneou 14 s injection (fourteen) days. alirocumab 2021-05- No [id number] 150mg Q14D Inject 1 [facility] (Praluent 2-30 04-05 mL ([address] Pen) 150 00:00: 00:00 total) Hospit a mg/mL pen 00 :00 under the l injector skin every subcutaneou 14 s injection (fourteen) days. metFORMIN 2021-05- No [id number] 500mg QD Take 1 [facility]i XR 2-30 03-[address] (GLUCOPHAGE 00:00: 00:00 (500 mg Ho spita -XR) 500 mg 00 :00 total) by l 24 hr mouth tablet daily with breakfast. dapaglifloz 2021-05- No [id number] 10mg QD Take 1 [facility] in 08-12 tablet (10 st (XI) 00:00: 00:00 mg total) Ho spita 10 mg 00 :00 by mouth l tablet daily. evolocumab 2021-05- No [id number] 140mg Q14D Inject 1 [facility] (Repatha -23 mL ([address] SureClick) 00:00: 00:00 total) Hosp andrea 140 mg/mL 00 :00 under the l pen skin every injector 14 injection (fourteen) days. metFORMIN 2021-05- No [id number] 500mg QD Take 1 [facility] XR 08-[address] (GLUCOPHAGE 00:00: 00:00 (500 mg Ho spita -XR) 500 mg 00 :00 total) by l 24 hr mouth tablet daily with breakfast. dapaglifloz 2021-05- No [id number] 10mg QD Take 1 [facility] in 08-12 tablet (10 st (XI) 00:00: 00:00 mg total) Ho spita 10 mg 00 :00 by mouth l tablet daily. evolocumab 2021-05- No [id number] 140mg Q14D Inject 1 [facility] (Repatha -23 mL ([address] SureClick) 00:00: 00:00 total) Hosp andrea 140 mg/mL 00 :00 under the l pen skin every injector 14 injection (fourteen) days. aspirin 2021-05 Yes 81mg QD Take 1 [facility] (ECOTRIN) 2-19 tablet (81 st 81 MG 00:00: mg total) Hospita enteric 00 by mouth l coated daily. tablet HumaLOG 2021-05 Yes INJECT 10 Metho di KwikPen 2-[address] Insulin 100 00:00: SUBCUTANEO Hospita unit/mL 00 USLY 3 l subcutaneou (THREE) s pen TIMES DAILY BEFORE MEALS. nicotine 2021-05 Yes APPLY ONE Meth maxwell (NICODERM 2-19 (1) st CQ) 21 00:00: PATCH(ES) Hospit a mg/24 hr 00 TO SKIN l DAILY. nitroglycer 2021-05 Yes DISSOLVE Me thodi in 07-11 ONE (1) st (NITROSTAT) 00:00: TABLET Hosp andrea 0.4 MG SL 00 UNDER l tablet TONGUE EVERY 5 MINUTES NEEDED FOR CHEST PAIN. NO MORE THAN 3 DOSES IN 15 MINUTES. CALL 911 IF PAIN UNRELIE aspirin 2021-05 Yes 81mg QD Take 1 [facility] (ECOTRIN) - tablet (81 st 81 MG 00:00: mg total) Hospita enteric 00 by mouth l coated daily. tablet HumaLOG 2021-05 Yes INJECT 10 Metho di KwikPen 07-[address] Insulin 100 00:00: SUBCUTANEO Hospita unit/mL 00 USLY 3 l subcutaneou (THREE) s pen TIMES DAILY BEFORE MEALS. nicotine 2021-05 Yes APPLY ONE Meth maxwell (NICODERM 07-11 (1) st CQ) 21 00:00: PATCH(ES) Hospit a mg/24 hr 00 TO SKIN l DAILY. nitroglycer 2021-05 Yes DISSOLVE Me thodi in 07-11 ONE (1) st (NITROSTAT) 00:00: TABLET Hosp andrea 0.4 MG SL 00 UNDER l tablet TONGUE EVERY 5 MINUTES NEEDED FOR CHEST PAIN. NO MORE THAN 3 DOSES IN 15 MINUTES. CALL 911 IF PAIN UNRELIE aspirin 81 2021-05- No 81mg QD Take [address] [facility] MG EC 07-11 tablet (81 [facility] tablet 00:00: 23:59 mg total) Medic al 00 :00 by mouth Center daily. clopidogreL 2021-05- No 75mg QD Take [address] [facility] (PLAVIX) 75 07-11- tablet (75 L ukes mg tablet 00:00: 23:59 mg total) Me dical 00 :00 by mouth Center daily. losartan 2021-05- No 50mg QD Take [address] [facility] [facility] (COZAAR) 50 -10 05- tablet (50 L ukes MG tablet 00:00: 23:59 mg total) Me dical 00 :00 by mouth Center daily. rosuvastati 2021-05- No 20mg QD Take [address] [facility] n (CRESTOR) -10 05- tablet (20 L ukes 20 MG 00:00: 23:59 mg total) Medica l tablet 00 :00 by mouth Center daily. aspirin 81 2021-05- No 81mg QD Take [address] [facility] MG EC -10 05- tablet (81 [facility] tablet 00:00: 23:59 mg total) Medic al 00 :00 by mouth Center daily. clopidogreL 2021-05- No 75mg QD Take [address] (PLAVIX) 75 07-11- tablet (75 L ukes mg tablet 00:00: 23:59 mg total) Me dical 00 :00 by mouth Center daily. losartan 2021-05- No 50mg QD Take [address] (COZAAR) 50 -10 05- tablet (50 L ukes MG tablet 00:00: 23:59 mg total) Me dical 00 :00 by mouth Center daily. rosuvastati 2021-05 No 20mg QD Take [address] [facility] n (CRESTOR) 07-11 tablet (20 L ukes 20 MG 00:00: 23:59 mg total) Medica l tablet 00 :00 by mouth Center daily. carvediloL 2021-05 No 25mg Q.5D Take 1 Meth maxwell (COREG) 25 07-11 tablet (25 st MG tablet 00:00: 00:00 mg total) Ho spita 00 :00 by mouth 2 l (two) times a day. clopidogreL 2021-05 No 75mg QD Take 1 Met hodi (PLAVIX) 75 07-11 tablet (75 s t mg tablet 00:00: 00:00 mg total) Ho spita 00 :00 by mouth l daily. losartan 2021-05 No 50mg QD Take 1 Method i (COZAAR) 50 07-11- tablet (50 s t MG tablet 00:00: 00:00 mg total) Ho spita 00 :00 by mouth l daily. rosuvastati 2021-05- No 20mg QD Take 1 Met hodi n (CRESTOR) 2- tablet (20 s t 20 mg 00:00: 00:00 mg total) Hospit a tablet 00 :00 by mouth l daily. carvediloL 2021-05- No 25mg Q.5D Take 1 Meth maxwell (COREG) 25 2-08 08- tablet (25 st MG tablet 00:00: 00:00 mg total) Ho spita 00 :00 by mouth 2 l (two) times a day. clopidogreL 2021-05- No 75mg QD Take 1 Met hodi (PLAVIX) 75 07-11 tablet (75 s t mg tablet 00:00: 00:00 mg total) Ho spita 00 :00 by mouth l daily. losartan 2021-05 No 50mg QD Take 1 Method i (COZAAR) 50 07-11 tablet (50 s t MG tablet 00:00: 00:00 mg total) Ho spita 00 :00 by mouth l daily. rosuvastati 2021-05 No 20mg QD Take 1 Met hodi n (CRESTOR) 07-11 tablet (20 s t 20 mg 00:00: 00:00 mg total) Hospit a tablet 00 :00 by mouth l daily. nicotine 2021-05- No 1{patch QD Place [address] (NICODERM 07-11 } patch onto Margarito es CQ) 21 00:00: 23:59 the skin Medica l mg/24 hr 00 :00 daily for Center patch 30 days. nicotine 2021-05- No 1{patch QD Place [address] (NICODERM 07-11 } patch onto Margarito es CQ) 21 00:00: 23:59 the skin Medica l mg/24 hr 00 :00 daily for Center patch 30 days. insulin 2021-05 Yes 20U Inject 20 Metho di GLARGINE 2-[address] (LANTUS 00:00: under the Hospi ta SOLOSTAR) 00 skin. l 100 unit/mL injection (pen) insulin 2021-05 Yes 20U Q.5D Inject 20 [facility] glargine 2-18 Units [facility] (Lantus 00:00: subcutaneo Medi ravi Solostar 00 usly 2 Center U-100 (two) Insulin) times 100 unit/mL daily. (3 mL) InPn insulin 2021-05 Yes 10U Inject 10 [facility] t lispro 2-18 Units [facility] (HumaLOG 00:00: subcutaneo Med ical KwikPen 00 usly 3 Center Insulin) (three) 100 unit/mL times InPn daily before meals. pen needle, 2021-05 Yes 1{appli Q.2D [address] diabetic 32 2-18 cation} applicatio [facility] gauge x 00:00: n by Medical 10/05" Ndle [address] ous route 5 (five) times daily. blood sugar 2021-05 Yes 1{appli [address] diagnostic 2-18 cation} applicatio [facility]ukes (glucose 00:00: n by Medical blood) Strp 00 Miscellane Ce nter ous route as needed (glucose check). lancets 2021-[address] Misc 2-18 sugar Lukes 00:00: before Medical 00 meals, Center nightly and as needed. insulin 2021-05 Yes 20U Inject 20 Metho di GLARGINE 2-[address] (LANTUS 00:00: under the Hospi ta SOLOSTAR) 00 skin. l 100 unit/mL injection (pen) insulin 2021-05 Yes 20U Q.5D Inject 20 [facility] t glargine 2-18 Units [facility] (Lantus 00:00: subcutaneo Medi ravi Solostar 00 usly 2 Center U-100 (two) Insulin) times 100 unit/mL daily. (3 mL) InPn insulin 2021-05 Yes 10U Inject 10 [facility] S t lispro 2-18 Units [facility] (HumaLOG 00:00: subcutaneo Med ical KwikPen 00 usly 3 Center Insulin) (three) 100 unit/mL times InPn daily before meals. pen needle, 2021-05 Yes 1{appli Q.2D [address] diabetic 32 2-18 cation} applicatio [facility]ukes gauge x 00:00: n by Medical 10/05" Ndle [address] ous route 5 (five) times daily. blood sugar 2021-05 Yes 1{appli [address] diagnostic 2-18 cation} applicatio [facility]ukes (glucose 00:00: n by Medical blood) Strp 00 Miscellane Ce nter ous route as needed (glucose check). lancets 2021-[address] Misc 2-18 sugar Lukes 00:00: before Medical 00 meals, Center nightly and as needed. carvediloL 2021-05- No 25mg Q.5D Take [address] (COREG) 25 2-18 12-18 tablet (25 Martha kes MG tablet 00:00: 23:59 mg total) Me dical 00 :00 by mouth 2 Center (two) times daily. nitroglycer 2021-05- No Put [address] in 2-18 12-18 under [facility]ukes (NITROSTAT) 00:00: 23:59 tongue Med ical 0.4 MG SL 00 :00 every 5min Cent er tablet as needed for chest pain.No more than 3 doses in 15min.Call 911 if pain unrelieved 5min after 1st dose. blood-gluco 2021-05- No Use as [facility] se meter 07-10 instructed Luke s kit 00:00: 23:59 .. Medical 00 :00 [place] carvediloL 2021-05- No 25mg Q.5D Take [address] (COREG) 25 2-18 12-18 tablet (25 Martha kes MG tablet 00:00: 23:59 mg total) Me dical 00 :00 by mouth 2 Center (two) times daily. nitroglycer 2021-05- No Put [address] in 07-10-18 under [facility]ukes (NITROSTAT) 00:00: 23:59 tongue Med ical 0.4 MG SL 00 :00 every 5min Cent er tablet as needed for chest pain.No more than 3 doses in 15min.Call 911 if pain unrelieved 5min after 1st dose. blood-gluco 2021-05- No Use as [facility] se meter 07-10 instructed Luke s kit 00:00: 23:59 .. Medical 00 :00 [place] testosteron 2021-05 Yes INJECT ONE Methodi e cypionate 2-15 (1) ML(S) st (DEPOTESTOT 00:00: INTO THE Ho spita ERONE 00 MUSCLE l CYPIONATE) ONCE A 200 mg/mL WEEK. injection testosteron 2021-05 Yes INJECT ONE Methodi e cypionate 2-15 (1) ML(S) st (DEPOTESTOT 00:00: INTO THE Ho spita ERONE 00 MUSCLE l CYPIONATE) ONCE A 200 mg/mL WEEK. injection DULoxetine 2021-05 Yes 60mg QD Take 1 Metho di (CYMBALTA) 1-[address] 60 MG 00:00: (60 mg Hospita capsule 00 total) by l mouth daily. DULoxetine 2021-05 Yes 60mg QD Take 1 Metho di (CYMBALTA) 1-[address] 60 MG 00:00: (60 mg Hospita capsule 00 total) by l mouth daily. codeine-gua 2020-0 2020- No 10mL Take 10 mL Univers ifenesin 7-08 12-27 by mouth ity of 10-100 mg/5 00:00: 04:59 every 6 [place] mL solution 00 :00 (six) Medical hours as Branch needed for Cough for up to 7 days. Indication s: cough codeine-gua 2020-0 2020- No 10mL Take 10 mL Univers ifenesin 7-08 12-27 by mouth ity of 10-100 mg/5 00:00: 04:59 every 6 [place] mL solution 00 :00 (six) Medical hours as Branch needed for Cough for up to 7 days. Indication s: cough codeine-gua 2020-0 2020- No 10mL Take 10 mL Univers ifenesin 7-08 12-27 by mouth ity of 10-100 mg/5 00:00: 04:59 every 6 [place] mL solution 00 :00 (six) Medical hours as Branch needed for Cough for up to 7 days. Indication s: cough codeine-gua 2020-0 2020- No 10mL Take 10 mL Univers ifenesin 7-08 12-27 by mouth ity of 10-100 mg/5 00:00: [...] days. Indication s: cough albuterol 2020-0 Yes [id number] 2{puff} Inhale 2 Univers 90 7-18 Puffs ity of mcg/actuati 00:00: every 6 [place] as on inhaler 00 (six) Medical hours as Branch needed for Wheezing or Shortness of Breath. azithromyci 2020-0 Yes [id number] 250mg Take 1 Univers n 7-18 tablet by ity of (ZITHROMAX 00:00: mouth [place] Z-VELIA) 250 00 daily. Medical mg tablet Take 500 Branch mg day 1, then 250 mg days 2 to 5. albuterol 2020-0 Yes [id number] 2{puff} Inhale 2 Univers 90 7-18 Puffs ity of mcg/actuati 00:00: every 6 [place]ak as on inhaler 00 (six) Medical hours as Branch needed for Wheezing or Shortness of Breath. azithromyci 2020-0 Yes [id number] 250mg Take 1 Univers n 7-18 tablet by ity of (ZITHROMAX 00:00: mouth [place] Z-VELIA) 250 00 daily. Medical mg tablet Take 500 Branch mg day 1, then 250 mg days 2 to 5. albuterol 2020-0 Yes [id number] 2{puff} Inhale 2 Univers 90 7-18 Puffs ity of mcg/actuati 00:00: every 6 [place]ak as on inhaler 00 (six) Medical hours as Branch needed for Wheezing or Shortness of Breath. azithromyci 2020-0 Yes [id number] 250mg Take 1 Univers n 7-18 tablet by ity of (ZITHROMAX 00:00: mouth [place] Z-VELIA) 250 00 daily. Medical mg tablet Take 500 Branch mg day 1, then 250 mg days 2 to 5. albuterol 2020-0 Yes [id number] 2{puff} Inhale 2 Univers 90 7-18 Puffs ity of mcg/actuati 00:00: every 6 Dipak as on inhaler 00 (six) Medical hours as Branch needed for Wheezing or Shortness of Breath. azithromyci 2020-0 Yes [id number] 250mg Take 1 Univers n 7-18 tablet by ity of (ZITHROMAX 00:00: mouth [place] Z-VELIA) 250 00 daily. Medical mg tablet Take 500 Branch mg day 1, then 250 mg days 2 to 5. albuterol 2020-0 Yes [id number] 2{puff} Inhale 2 Univers 90 7-18 Puffs ity of mcg/actuati 00:00: every 6 Dipak as on inhaler 00 (six) Medical hours as Branch needed for Wheezing or Shortness of Breath. azithromyci 2020-0 Yes [id number] 250mg Take 1 Univers n 7-18 tablet by ity of (ZITHROMAX 00:00: mouth [place] Z-VELIA) 250 00 daily. Medical mg tablet Take 500 Branch mg day 1, then 250 mg days 2 to 5. albuterol 2020-0 Yes [id number] 2{puff} Inhale 2 Univers 90 7-18 Puffs ity of mcg/actuati 00:00: every 6 [place] as on inhaler 00 (six) Medical hours as Branch needed for Wheezing or Shortness of Breath. azithromyci 2020-0 Yes [id number] 250mg Take 1 Univers n 7-18 tablet by ity of (ZITHROMAX 00:00: mouth [place] Z-VELIA) 250 00 daily. Medical mg tablet Take 500 Branch mg day 1, then 250 mg days 2 to 5. albuterol 2020-0 Yes [id number] 2{puff} Inhale 2 Univers 90 7-18 Puffs ity of mcg/actuati 00:00: every 6 Dipak as on inhaler 00 (six) Medical hours as Branch needed for Wheezing or Shortness of Breath. azithromyci 2020-0 Yes [id number] 250mg Take 1 Univers n 7-18 tablet by ity of (ZITHROMAX 00:00: mouth [place] Z-VELIA) 250 00 daily. Medical mg tablet Take 500 Branch mg day 1, then 250 mg days 2 to 5. albuterol 2020-0 Yes [id number] 2{puff} Inhale 2 Univers 90 7-18 Puffs ity of mcg/actuati 00:00: every 6 Dipak as on inhaler 00 (six) Medical hours as Branch needed for Wheezing or Shortness of Breath. azithromyci 2020-0 Yes [id number] 250mg Take 1 Univers n 7-18 tablet by ity of (ZITHROMAX 00:00: mouth [place] Z-VELIA) 250 00 daily. Medical mg tablet Take 500 Branch mg day 1, then 250 mg days 2 to 5. albuterol 2020-0 Yes [id number] 2{puff} Inhale 2 Univers 90 7-18 Puffs ity of mcg/actuati 00:00: every 6 Dipak as on inhaler 00 (six) Medical hours as Branch needed for Wheezing or Shortness of Breath. azithromyci 2020-0 Yes [id number] 250mg Take 1 Univers n 7-18 tablet by ity of (ZITHROMAX 00:00: mouth [place] Z-VELIA) 250 00 daily. Medical mg tablet Take 500 Branch mg day 1, then 250 mg days 2 to 5. albuterol 2020-0 Yes [id number] 2{puff} Inhale 2 Univers 90 7-18 Puffs ity of mcg/actuati 00:00: every 6 Dipak as on inhaler 00 (six) Medical hours as Branch needed for Wheezing or Shortness of Breath. azithromyci 2020-0 Yes [id number] 250mg Take 1 Univers n 7-18 tablet by ity of (ZITHROMAX 00:00: mouth [place] Z-VELIA) 250 00 daily. Medical mg tablet Take 500 Branch mg day 1, then 250 mg days 2 to 5. albuterol 2020-0 Yes [id number] 2{puff} Inhale 2 Univers 90 7-18 Puffs ity of mcg/actuati 00:00: every 6 Dipak as on inhaler 00 (six) Medical hours as Branch needed for Wheezing or Shortness of Breath. azithromyci 2020-0 Yes [id number] 250mg Take 1 Univers n 7-18 tablet by ity of (ZITHROMAX 00:00: mouth [place] Z-VELIA) 250 00 daily. Medical mg tablet Take 500 Branch mg day 1, then 250 mg days 2 to 5. albuterol 2020-0 Yes [id number] 2{puff} Inhale 2 Univers 90 7-18 Puffs ity of mcg/actuati 00:00: every 6 Dipak as on inhaler 00 (six) Medical hours as Branch needed for Wheezing or Shortness of Breath. azithromyci 2020-0 Yes [id number] 250mg Take 1 Univers n 7-18 tablet by ity of (ZITHROMAX 00:00: mouth [place] Z-VELIA) 250 00 daily. Medical mg tablet Take 500 Branch mg day 1, then 250 mg days 2 to 5. albuterol 2020-0 Yes [id number] 2{puff} Inhale 2 Univers 90 7-18 Puffs ity of mcg/actuati 00:00: every 6 Dipak as on inhaler 00 (six) Medical hours as Branch needed for Wheezing or Shortness of Breath. azithromyci 2020-0 Yes [id number] 250mg Take 1 Univers n 7-18 tablet by ity of (ZITHROMAX 00:00: mouth [place] Z-VELIA) 250 00 daily. Medical mg tablet Take 500 Branch mg day 1, then 250 mg days 2 to 5. albuterol 2020-0 Yes [id number] 2{puff} Inhale 2 Univers 90 7-18 Puffs ity of mcg/actuati 00:00: every 6 Dipak as on inhaler 00 (six) Medical hours as Branch needed for Wheezing or Shortness of Breath. azithromyci 2020-0 Yes [id number] 250mg Take 1 Univers n 7-18 tablet by ity of (ZITHROMAX 00:00: mouth [place] Z-VELIA) 250 00 daily. Medical mg tablet Take 500 Branch mg day 1, then 250 mg days 2 to 5. albuterol 2020-0 Yes [id number] 2{puff} Inhale 2 Univers 90 7-18 Puffs ity of mcg/actuati 00:00: every 6 Dipak as on inhaler 00 (six) Medical hours as Branch needed for Wheezing or Shortness of Breath. azithromyci 2020-0 Yes [id number] 250mg Take 1 Univers n 7-18 tablet [...] Cough. Indication s: cough albuterol 2020-0 Yes [id number] 2{puff} Inhale 2 Univers 90 7-18 Puffs ity of mcg/actuati 00:00: every 6 Dipak as on inhaler 00 (six) Medical hours as Branch needed for Wheezing or Shortness of Breath. azithromyci 2020-0 Yes [id number] 250mg Take 1 Univers n 7-18 tablet [...] Cough. Indication s: cough albuterol 2020-0 Yes [id number] 2{puff} Inhale 2 Univers 90 7-18 Puffs ity of mcg/actuati 00:00: every 6 Dipak as on inhaler 00 (six) Medical hours as Branch needed for Wheezing or Shortness of Breath. azithromyci 2020-0 Yes [id number] 250mg Take 1 Univers n 7-18 tablet by ity of (ZITHROMAX 00:00: mouth [place] Z-VELIA) 250 00 daily. Medical mg tablet Take 500 Branch mg day 1, then 250 mg days 2 to 5. albuterol 2020-0 Yes [id number] 2{puff} Inhale 2 Univers 90 7-18 Puffs ity of mcg/actuati 00:00: every 6 Dipak as on inhaler 00 (six) Medical hours as Branch needed for Wheezing or Shortness of Breath. azithromyci 2020-0 Yes [id number] 250mg Take 1 Univers n 7-18 tablet by ity of (ZITHROMAX 00:00: mouth [place] Z-VELIA) 250 00 daily. Medical mg tablet Take 500 Branch mg day 1, then 250 mg days 2 to 5. promethazin 2020-0 2020- No 10mL Take 10 mL Univers e-codeine 7-07 12- by mouth 4 ity of 6.25-10 [...] 10mL Take 10 mL Univers e-codeine 7-18 07-18 by mouth 4 ity of 6.25-10 00:00: 00:00 (four) [place] mg/5 mL 00 :00 times Medical syrup daily as Branch needed for Cough for up to 7 days. Indication s: cough promethazin 2020-0 2020- No 10mL Take 10 mL Univers e-codeine 7-18 07-18 by mouth 4 ity of 6.25-10 00:00: [...] 5mL Take 5 mL Univers e-codeine -04 12-23 by mouth 4 ity of 6.25-10 00:00: 04:59 (four) [place] mg/5 mL 00 :00 times Medical syrup daily as Branch needed for Cough for up to 7 days. Indication s: acute pain promethazin 2020-0 2020- No [id number] 5mL Take 5 mL Univers e-codeine -04 12-23 by mouth 4 ity of 6.25-10 00:00: [...] [id number] 5mL Take 5 mL Univers e-codeine 12-04- by mouth 4 ity of 6.25-10 00:00: 04:59 (four) [place] mg/5 mL 00 :00 times Medical syrup daily as Branch needed for Cough for up to 7 days. Indication s: acute pain Diethylprop 2020-0 Yes TK 1 T PO U nivers ion HCl 75 6-30 ONCE D ity of mg TbSR 00:00: Medical Branch Diethylprop 2020-0 Yes TK 1 T PO U nivers ion HCl 75 6-30 ONCE D ity of mg TbSR 00:00: Medical Branch Diethylprop 2020-0 Yes TK 1 T PO U nivers ion HCl 75 6-30 ONCE D ity of mg TbSR 00:00: Medical Branch Diethylprop 2020-0 Yes TK 1 T PO U nivers ion HCl 75 6-30 ONCE D ity of mg TbSR 00:00: Medical Branch Diethylprop 2020-0 Yes TK 1 T PO U nivers ion HCl 75 6-30 ONCE D ity of mg TbSR 00:00: [place] 00 Medical Branch Diethylprop 2020-0 Yes TK 1 T PO U nivers ion HCl 75 6-30 ONCE D ity of mg TbSR 00:00: [place] 00 Medical Branch Diethylprop 2020-0 Yes TK 1 T PO U nivers ion HCl 75 6-30 ONCE D ity of mg TbSR 00:00: [place] 00 Medical Branch Diethylprop 2020-0 Yes TK 1 T PO U nivers ion HCl 75 6-30 ONCE D ity of mg TbSR 00:00: [place] 00 Medical Branch Diethylprop 2020-0 Yes TK 1 T PO U nivers ion HCl 75 6-30 ONCE D ity of mg TbSR 00:00: [place] 00 Medical Branch Diethylprop 2020-0 Yes TK 1 T PO U nivers ion HCl 75 6-30 ONCE D ity of mg TbSR 00:00: [place] 00 Medical Branch Diethylprop 2020-0 Yes TK 1 T PO U nivers ion HCl 75 6-30 ONCE D ity of mg TbSR 00:00: [place] 00 Medical Branch Diethylprop 2020-0 Yes TK 1 T PO U nivers ion HCl 75 6-30 ONCE D ity of mg TbSR 00:00: [place] 00 Medical Branch Diethylprop 2020-0 Yes TK 1 T PO U nivers ion HCl 75 6-30 ONCE D ity of mg TbSR 00:00: [place] 00 Medical Branch Diethylprop 2020-0 Yes TK 1 T PO U nivers ion HCl 75 6-30 ONCE D ity of mg TbSR 00:00: [place] 00 Medical Branch Diethylprop 2020-0 Yes TK 1 T PO U nivers ion HCl 75 6-30 ONCE D ity of mg TbSR 00:00: [place] 00 Medical Branch Diethylprop 2020-0 Yes TK 1 T PO U nivers ion HCl 75 6-30 ONCE D ity of mg TbSR 00:00: [place] 00 Medical Branch Diethylprop 2020-0 Yes TK 1 T PO U nivers ion HCl 75 6-30 ONCE D ity of mg TbSR 00:00: [place] 00 Medical Branch Diethylprop 2020-0 Yes TK 1 T PO U nivers ion HCl 75 6-30 ONCE D ity of mg TbSR 00:00: [place] [address] Medical Branch Diethylprop 2020-0 Yes TK 1 T PO U nivers ion HCl 75 6-30 ONCE D ity of mg TbSR 00:00: [place] 00 Medical Branch Diethylprop 2020-0 Yes TK 1 T PO U nivers ion HCl 75 6-30 ONCE D ity of mg TbSR 00:00: [place] [facility] glimepiride 2020-0 Yes TK 1 T PO U nivers 2 mg tablet - BID ity of 00:00: [place] [facility] glimepiride 2020-0 Yes TK 1 T PO U nivers 2 mg tablet - BID ity of 00:00: [place] [facility] glimepiride 2020-0 Yes TK 1 T PO U nivers 2 mg tablet 11-17 BID ity of 00:00: [place] [facility] glimepiride 2020-0 Yes TK 1 T PO U nivers 2 mg tablet 11-17 BID ity of 00:00: [place] [address] Medical Branch glimepiride 2020-0 Yes TK 1 T PO U nivers 2 mg tablet 11-17 BID ity of 00:00: [place] [address] Medical Branch glimepiride 2020-0 Yes TK 1 T PO U nivers 2 mg tablet 11-17 BID ity of 00:00: [place] [facility] glimepiride 2020-0 Yes TK 1 T PO U nivers 2 mg tablet 11-17 BID ity of 00:00: [place] [address] Medical Branch glimepiride 2020-0 Yes TK 1 T PO U nivers 2 mg tablet 11-17 BID ity of 00:00: [place] [facility] glimepiride 2020-0 Yes TK 1 T PO U nivers 2 mg tablet 11-17 BID ity of 00:00: [place] [facility] glimepiride 2020-0 Yes TK 1 T PO U nivers 2 mg tablet 11-17 BID ity of 00:00: [place] [facility] glimepiride 2020-0 Yes TK 1 T PO U nivers 2 mg tablet - BID ity of 00:00: [place] [address] Medical Branch glimepiride 2020-0 Yes TK 1 T PO U nivers 2 mg tablet 11-17 BID ity of 00:00: [place] [address] Medical Branch glimepiride 2020-0 Yes TK 1 T PO U nivers 2 mg tablet - BID ity of 00:00: [place] [address] Medical Branch glimepiride 2020-0 Yes TK 1 T PO U nivers 2 mg tablet 11-17 BID ity of 00:00: [place] [facility] glimepiride 2020-0 Yes TK 1 T PO U nivers 2 mg tablet 6-28 BID ity of 00:00: [place] [facility] Branch glimepiride 2020-0 Yes TK 1 T PO U nivers 2 mg tablet 6-28 BID ity of 00:00: [place] [facility] glimepiride 2020-0 Yes TK 1 T PO U nivers 2 mg tablet 6-28 BID ity of 00:00: [place] [facility] glimepiride 2020-0 Yes TK 1 T PO U nivers 2 mg tablet 6-28 BID ity of 00:00: [address] glimepiride 2020-0 Yes TK 1 T PO U nivers 2 mg tablet 6-28 BID ity of 00:00: [address] glimepiride 2020-0 Yes TK 1 T PO U nivers 2 mg tablet 6-28 BID ity of 00:00: [address] anastrozole 2020-0 Yes TK 1 T PO U nivers 1 mg tablet 6-24 ONCE A ity of 00:00: WEEK [address] anastrozole 2020-0 Yes TK 1 T PO U nivers 1 mg tablet 6-24 ONCE A ity of 00:00: [address] anastrozole 2020-0 Yes TK 1 T PO U nivers 1 mg tablet 6-24 ONCE A ity of 00:00: [address] anastrozole 2020-0 Yes TK 1 T PO U nivers 1 mg tablet 6-24 ONCE A ity of 00:00: [address] anastrozole 2020-0 Yes TK 1 T PO U nivers 1 mg tablet 6-24 ONCE A ity of 00:00: [address] anastrozole 2020-0 Yes TK 1 T PO U nivers 1 mg tablet 6-24 ONCE A ity of 00:00: WEEK [address] anastrozole 2020-0 Yes TK 1 T PO U nivers 1 mg tablet 6-24 ONCE A ity of 00:00: [address] anastrozole 2020-0 Yes TK 1 T PO U nivers 1 mg tablet 6-24 ONCE A ity of 00:00: WEEK [address] anastrozole 2020-0 Yes TK 1 T PO U nivers 1 mg tablet 6-24 ONCE A ity of 00:00: [address] anastrozole 2020-0 Yes TK 1 T PO U nivers 1 mg tablet 6-24 ONCE A ity of 00:00: [address] anastrozole 2020-0 Yes TK 1 T PO U nivers 1 mg tablet 6-24 ONCE A ity of 00:00: [address] anastrozole 2020-0 Yes TK 1 T PO U nivers 1 mg tablet 6-24 ONCE A ity of 00:00: [facility] anastrozole 2020-0 Yes TK 1 T PO U nivers 1 mg tablet 6-24 ONCE A ity of 00:00: [address] anastrozole 2020-0 Yes TK 1 T PO U nivers 1 mg tablet 6-24 ONCE A ity of 00:00: [address] anastrozole 2020-0 Yes TK 1 T PO U nivers 1 mg tablet 6-24 ONCE A ity of 00:00: [address] anastrozole 2020-0 Yes TK 1 T PO U nivers 1 mg tablet 6-24 ONCE A ity of 00:00: [address] anastrozole 2020-0 Yes TK 1 T PO U nivers 1 mg tablet 6-24 ONCE A ity of 00:00: [address] anastrozole 2020-0 Yes TK 1 T PO U nivers 1 mg tablet 6-24 ONCE A ity of 00:00: [address] anastrozole 2020-0 Yes TK 1 T PO U nivers 1 mg tablet 6-24 ONCE A ity of 00:00: [address] anastrozole 2020-0 Yes TK 1 T PO U nivers 1 mg tablet 6-24 ONCE A ity of 00:00: [address] INVOKANA 2020-0 Yes TK 1 T PO Univ ers 300 mg 6-13 ONCE D ity of tablet 00:00: [place] [address] Medical Branch INVOKANA 2020-0 Yes TK 1 T PO Univ ers 300 mg 6-13 ONCE D ity of tablet 00:00: [place] [address] Medical Branch INVOKANA 2020-0 Yes TK 1 T PO Univ ers 300 mg 6-13 ONCE D ity of tablet 00:00: [place] [address] Medical Branch INVOKANA 2020-0 Yes TK 1 T PO Univ ers 300 mg 6-13 ONCE D ity of tablet 00:00: [place] 00 Medical Branch INVOKANA 2020-0 Yes TK 1 T PO Univ ers 300 mg 6-13 ONCE D ity of tablet 00:00: [place] 00 Medical Branch INVOKANA 2020-0 Yes TK 1 T PO Univ ers 300 mg 6-13 ONCE D ity of tablet 00:00: [place] 00 Medical Branch INVOKANA 2020-0 Yes TK 1 T PO Univ ers 300 mg 6-13 ONCE D ity of tablet 00:00: [place] [facility] INVOKANA 2020-0 Yes TK 1 T PO Univ ers 300 mg 6-13 ONCE D ity of tablet 00:00: [place] 00 Medical Branch INVOKANA 2020-0 Yes TK 1 T PO Univ ers 300 mg 6-13 ONCE D ity of tablet 00:00: [place] 00 Medical Branch INVOKANA 2020-0 Yes TK 1 T PO Univ ers 300 mg 6-13 ONCE D ity of tablet 00:00: [place] [address] Medical Branch INVOKANA 2020-0 Yes TK 1 T PO Univ ers 300 mg 6-13 ONCE D ity of tablet 00:00: [place] 00 Medical Branch INVOKANA 2020-0 Yes TK 1 T PO Univ ers 300 mg 6-13 ONCE D ity of tablet 00:00: [place] [address] Medical Branch INVOKANA 2020-0 Yes TK 1 T PO Univ ers 300 mg 6-13 ONCE D ity of tablet 00:00: [place] 00 Medical Branch INVOKANA 2020-0 Yes TK 1 T PO Univ ers 300 mg 6-13 ONCE D ity of tablet 00:00: [place] 00 Medical Branch INVOKANA 2020-0 Yes TK 1 T PO Univ ers 300 mg 6-13 ONCE D ity of tablet 00:00: [place] 00 Medical Branch INVOKANA 2020-0 Yes TK 1 T PO Univ ers 300 mg 6-13 ONCE D ity of tablet 00:00: [place] 00 Medical Branch INVOKANA 2020-0 Yes TK 1 T PO Univ ers 300 mg 6-13 ONCE D ity of tablet 00:00: [place] 00 Medical Branch INVOKANA 2020-0 Yes TK 1 T PO Univ ers 300 mg 6-13 ONCE D ity of tablet 00:00: [place] [address] Medical Branch INVOKANA 2020-0 Yes TK 1 T PO Univ ers 300 mg 6-13 ONCE D ity of tablet 00:00: [place] 00 Medical Branch INVOKANA 2020-0 Yes TK 1 T PO Univ ers 300 mg 6-13 ONCE D ity of tablet 00:: [place] [facility] testosteron 2020-0 Yes INJ 1 [...] mg/mL 00:: [place] injection Medical [facility] testosteron 2019-0 Yes INJ 1 ML Un andrew e cypionate 5-16 IM ONCE A ity of 200 mg/mL 00:: [place] injection Medical Branch testosteron 2019-0 Yes INJ 1 ML Un andrew e cypionate 5-16 IM ONCE A ity of 200 mg/mL 00:: [place] injection Medical Branch testosteron 2019-0 Yes INJ 1 ML Un andrew e cypionate 5-16 IM ONCE A ity of 200 mg/mL 00:: [place] injection Medical Branch testosteron 2019-0 Yes INJ 1 ML Un andrew e cypionate 5-16 IM ONCE A ity of 200 mg/mL :: [place] injection Medical Branch testosteron 2019-0 Yes INJ 1 ML Un andrew e [...] of 200 mg/mL 00:00: WEEK [place] injection [facility] testosteron 2019-0 Yes INJ 1 ML Un andrew e cypionate 5-16 IM ONCE A ity of 200 mg/mL 00:00: [place] injection [facility] testosteron 2019-0 Yes INJ 1 ML Un andrew e cypionate 5-16 IM ONCE A ity of 200 mg/mL 00:: [place] injection [facility] testosteron 2019-0 Yes INJ 1 ML Un andrew e cypionate 5-16 IM ONCE A ity of 200 mg/mL 00:00: [place] injection [facility] testosteron 0 Yes INJ 1 ML Un andrew e cypionate 5-16 IM ONCE A ity of 200 mg/mL 00:00: [place] injection [facility] testosteron 0 Yes INJ 1 ML Un andrew e cypionate 5-16 IM ONCE A ity of 200 mg/mL 00:: [place] injection [facility] testosteron 0 Yes INJ 1 ML Un andrew e cypionate 5-16 IM ONCE A ity of 200 mg/mL 00:00: [place] injection [facility] testosteron 0 Yes INJ 1 ML Un andrew e cypionate 5-16 IM ONCE A ity of 200 mg/mL 00:: [place] injection [facility] True Metrix True Metrix No True Blood Blood Metrix Glucose Glucose Blood Test - Test - Glucose Test - HYDROcodone HYDROcodone No HYDROcodon -Acetaminop -Acetaminop e-Acetamin hen 10-325 hen 10-325 ophen MG MG 10-325 MG Anastrozole Anastrozole No Anastrozol 1 MG 1 MG e 1 MG H-E-B H-E-B No H-E-B inControl inControl inControl Lancets 30G Lancets 30G Lancets - - 30G - Clopidogrel Clopidogrel No Clopidogre Bisulfate Bisulfate l 75 MG 75 MG Bisulfate 75 MG Accu-Chek Accu-Chek No Accu-Chek Guide - Guide - Guide - Depo-Testos Depo-Testos No Depo-Testo terone 200 terone 200 sterone MG/ML MG/ML 200 MG/ML BD BD No BD PrecisionGl PrecisionGl PrecisionG quentin Needle quentin Needle lide 23G X 23G X Needle 23G 1-1/2" 1-1/2" X 1-12" Aspirin Low Aspirin Low No Aspirin Dose 81 MG Dose 81 MG Low Dose 81 MG Carvedilol Carvedilol No Carvedilol 25 MG 25 MG 25 MG DULoxetine DULoxetine No DULoxetine HCl 60 MG HCl 60 MG HCl 60 MG Vital Signs Vital Name Observation Time Observation Value Comments Source height 2022-09-30 15:00:00 77 [in_i] [facility] weight-kg 2022-09-30 15:00:00 121.02 kg [facility] bmi 2022-09-30 15:00:00 31.63 [facility] [place] [facility] pressure 2022-09-30 15:00:00 134 mm[Hg] [facility] blood pressure 2022-09-30 15:00:00 86 mm[facility]Hg[facility] 2022-05-09 04:00:00 117.935 kg WEIGHT 2022-05-08 06:00:00 117.5 kg HEIGHT 2022-05-07 04:00:00 195.6 cm WEIGHT 2022-05-07 04:00:00 117.4 kg HEIGHT 2022-05-07 00:00:00 195.6 cm WEIGHT 2022-05-07 00:00:00 124.739 kg WEIGHT 2022-05-09 04:00:00 117.935 kg WEIGHT 2022-05-08 06:00:00 117.5 kg HEIGHT 2022-05-07 04:00:00 195.6 cm WEIGHT 2022-05-07 04:00:00 117.4 kg HEIGHT 2022-05-07 00:00:00 195.6 cm WEIGHT 2022-05-07 00:00:00 124.739 kg WEIGHT 2022-05-09 04:00:00 117.935 kg WEIGHT 2022-05-08 06:00:00 117.5 kg HEIGHT 2022-05-07 04:00:00 195.6 cm WEIGHT 2022-05-07 04:00:00 117.4 kg HEIGHT 2022-05-07 00:00:00 195.6 cm WEIGHT 2022-05-07 00:00:00 124.739 kg Systolic blood 2020-11-03 13:15:00 150 mm[Hg] Univer sity of pressure [place] [facility] Diastolic blood 2020-11-03 13:15:00 87 mm[Hg] Unive rsity of pressure [facility] Heart rate 2020-11-03 13:15:00 75 /min [facility] Body temperature 2020-11-03 13:15:00 37.28 [place] Univ ersity of [facility] Respiratory rate 2020-11-03 13:15:00 18 /min Univ ers[facility] of [facility] Body height 2020-11-03 13:15:00 195.6 cm [facility] [place] [facility] Body weight 2020-11-03 13:15:00 128.277 kg [facility] [place] [facility] BMI 2020-11-03 13:15:00 33.54 kg/m2 [facility] Systolic blood 2020-06-17 14:17:00 126 mm[Hg] Univer sity of pressure [place] [facility] Diastolic blood 2020-06-17 14:17:00 80 mm[Hg] Unive rsity of pressure [facility] Heart rate 2020-06-17 14:17:00 74 /min [facility] Body temperature 2020-06-17 14:17:00 36.89 [place] [facility] Respiratory rate 2020-06-17 14:17:00 18 /min Univ ers[facility] Body height 2020-06-17 14:17:00 195.6 cm [facility] [place] [facility] Body weight 2020-06-17 14:17:00 127.007 kg [facility] [place] [facility] BMI 2020-06-17 14:17:00 33.20 kg/m2 [facility] Oxygen saturation in 2020-06-17 14:17:00 97 /min [facility] Arterial blood by [facility] Pulse oximetry Branch Systolic blood 2020-06-17 14:17:00 126 mm[Hg] Univer sity of pressure [facility] Diastolic blood 2020-06-17 14:17:00 80 mm[Hg] Unive rsity of pressure [facility] Heart rate 2020-06-17 14:17:00 74 /min [facility] [place] [facility] Body temperature 2020-06-17 14:17:00 36.89 Celina [facility] ersity [facility] Respiratory rate 2020-06-17 14:17:00 18 /min Univ ersity of [facility] Body height 2020-06-17 14:17:00 195.6 cm [facility]i [facility] Body weight 2020-06-17 14:17:00 127.007 kg [facility] [place] [facility] BMI 2020-06-17 14:17:00 33.20 kg/m2 [facility] Oxygen saturation in 2020-06-17 14:17:00 97 /min University of Arterial blood by [facility] Pulse oximetry Branch Systolic blood 2019-12-08 17:43:00 133 mm[Hg] Univer sity of pressure [place] [facility] Diastolic blood 2019-12-08 17:43:00 72 mm[Hg] Unive rsity of pressure [facility] Heart rate 2019-12-08 17:43:00 101 /min [facility] Body temperature 2019-12-08 17:43:00 37 Cel[place] [facility] ersity [facility] Respiratory rate 2019-12-08 17:43:00 20 /min [facility] ersity [facility] Body height 2019-12-08 17:43:00 195.6 cm [facility] Body weight 2019-12-08 17:43:00 136.079 kg [facility] BMI 2019-12-08 17:43:00 35.57 kg/m2 [facility] Oxygen saturation in 2019-12-08 17:43:00 96 /min University of Arterial blood by [facility] Pulse oximetry Branch Body height 2022-08-25 20:37:00 195.6 cm [facility] Body weight 2022-08-25 20:37:00 124.739 kg [facility] BMI 2022-08-25 20:37:00 32.61 kg/m2 [facility] Respiratory rate 2022-06-16 21:13:00 12 /min [facility] Systolic blood 2022-05-21 15:21:00 122 mm[Hg] [facility] pressure Diastolic blood 2022-05-21 15:21:00 70 mm[Hg] [facility] pressure Heart rate 2022-05-21 15:21:00 59 /[facility] 2022-05-21 15:21:00 97 /min [facility] Arterial blood by Pulse oximetry Systolic blood 2022-05-09 14:52:00 94 mm[Hg] [facility] Diastolic blood 2022-05-09 14:52:00 59 mm[Hg] [facility] Heart rate 2022-05-09 14:52:00 65 /min [facility] Body temperature 2022-05-09 14:52:00 37.11 Celina [facility] Respiratory rate 2022-05-09 14:52:00 18 /min [facility] Oxygen saturation in 2022-05-09 14:52:00 97 /min [facility] Arterial blood by Medical Ce nter Pulse oximetry Body weight 2022-05-09 04:00:00 117.935 kg [facility] BMI 2022-05-09 04:00:00 30.83 kg/m2 [facility] Body height 2022-05-07 04:00:00 195.6 cm [facility] Procedures Procedure Date / Time Performing Clinician Source Performed LIPID PANEL 2022-09-07 20:04:00 Dima [facility] HEMOGLOBIN A1C 2022-09-07 20:04:00 Dima Sh[facility] ECG 12-LEAD 2022-05-21 15:56:00 Dima Sh[facility] POCT-GLUCOSE METER 2022-05-09 10:56:00 Autumn Rivera [facility] APTT 2022-05-09 08:10:00 Racheal Miranda [facility] POCT-GLUCOSE METER 2022-05-09 07:18:00 Autumn Rivera [facility] BASIC METABOLIC PANEL 2022-05-09 01:21:00 Autumn Rivera [facility] CBC (HEMOGRAM ONLY) 2022-05-09 01:21:00 Autumn Rivera [facility] APTT 2022-05-09 01:21:00 Sina [facility] POCT-GLUCOSE METER 2022-05-08 22:48:00 Felibertonayla Autumn [facility] APTT 2022-05-08 18:19:00 Ruth [facility] POCT-GLUCOSE METER 2022-05-08 16:09:00 Dima Sharma [facility] 2D ECHO W/ DOPPLER 2022-05-08 11:54:01 [facility] [place] POCT-GLUCOSE METER 2022-05-08 11:34:00 Dima Sharma [facility] APTT 2022-05-08 11:30:00 [facility] 2022-05-08 07:41:00 Dima Sharma [facility] COMPREHENSIVE METABOLIC 2022-05-08 04:34:00 [facility] PANEL Center MAGNESIUM 2022-05-08 04:34:00 [facility] PHOSPHORUS 2022-05-08 04:34:00 [facility] CBC W/PLT COUNT & AUTO 2022-05-08 04:34:00 [facility] DIFFERENTIAL Center APTT 2022-05-08 04:34:00 Racheal Miranda [facility] CBC W/PLT COUNT & AUTO 2022-05-08 04:34:00 [facility] POCT-GLUCOSE METER 2022-05-07 21:35:00 Dima Sharma [facility] APTT 2022-05-07 21:32:00 Racheal Miranda [facility] POCT-GLUCOSE METER 2022-05-07 16:09:00 Dima Sharma [facility] APTT 2022-05-07 14:26:00 [facility] 2022-05-07 11:36:00 Satnam Dima [facility] POCT-GLUCOSE METER 2022-05-07 06:55:00 Satnam Dima [facility] POCT-GLUCOSE METER 2022-05-07 03:31:00 Satnam Dima [facility] MAGNESIUM 2022-05-07 03:06:00 Satnam Dima Satnam [facility] PHOSPHORUS 2022-05-07 03:06:00 Satnam Dima [facility] LIPID PANEL 2022-05-07 03:06:00 Ruth Rosamondbhargav [facility] BASIC METABOLIC PANEL 2022-05-07 03:06:00 [facility] 2022-05-07 03:06:00 [facility]-07 03:06:00 Ronni Mirandabhargav [facility] POCT-ACT 2022-05-07 02:03:00 Satnam Dima [facility] POCT-ACT 2022-05-07 01:26:00 Satnam Dima [facility] POCT-ACT 2022-05-07 01:09:00 Dima Sharma [facility] LACTIC ACID, VENOUS 2022-05-07 00:49:00 Dima Sharma [facility] CBC W/PLT COUNT & AUTO 2022-05-07 00:47:00 Satnam Dima [facility] CBC W/PLT COUNT & AUTO 2022-05-07 00:47:00 Dima Sharma [facility] PT/APTT 2022-05-07 00:47:00 Dima Sharma [facility] PROTHROMBIN TIME/INR 2022-05-07 00:47:00 Satnam Dima [facility] COMPREHENSIVE METABOLIC 2022-05-07 00:47:00 Satnam [facility] PANEL Center HEMOGLOBIN A1C 2022-05-07 00:47:00 Sharma [facility] HIGH SENSITIVITY 2022-05-07 00:47:00 Sharma [facility] s [facility] TROPONIN I Center LIPID PANEL 2022-05-07 00:47:00 Satnam [facility] MAGNESIUM 2022-05-07 00:47:00 Sharma, [facility] PHOSPHORUS 2022-05-07 00:47:00 Satnam [facility] TSH/FREE T4 IF INDICATED 2022-05-07 00:47:00 Sharma, [facility] B-TYPE NATRIURETIC 2022-05-07 00:47:00 Sharma, [facility] Medical FACTOR (BNP) Center CATHETERIZATION, HEART, 2022-05-07 00:38:00 SharmaDima [facility], WITH PERCUTANEOUS Center CORONARY INTERVENTION ECG 12-LEAD 2022-05-07 00:30:40 Racheal Miranda [facility] ECG 12-LEAD 2022-05-07 00:30:40 Unknown, Hl7 Doctor [facility] ECG 12-LEAD 2022-05-07 00:30:40 Unknown, Hl7 [facility] CARDIAC CATH REPORT - 2022-05-07 00:00:00 Provider, [facility] SCAN Scanning Center POCT URINALYSIS AUTO 2020-11-03 13:22:00 [facility] SCANNED LAB RESULTS 2020-11-03 05:01:00 Doctor Unassigned, [facility] POCT FLU A AND B 2020-06-17 14:48:00 Isela Escobedo [facility] (MOLECULAR) Medical Branch XR CHEST 2 VW COVID 2019-12-08 18:16:02 Luis Daniel Chiu [facility] Plan of Care Planned Activity Planned Date Details Comments Source Future Scheduled 2025-05-07 Lipid panel (procedure) [facility] 00:00:00 [code = 47747451] Medical Ce nter Future Scheduled 2025-05-07 Lipid panel (procedure) [facility] 00:00:00 [code = 47778009] Medical Ce nter Future Scheduled 2023-05-[address] [facility] 00:00:00 Counseling and Screening Med ica Center (12+) [code = Tobacco Cessation Counseling and Screening (12+)] Future Scheduled 2023-05-[address] [facility] 00:00:00 Counseling and Screening Med ica Center (12+) [code = Tobacco Cessation Counseling and Screening (12+)] Future Scheduled 2023-04-13 Screening for malignant [facility] 20:30:10 neoplasm of colon Hospital (procedure) [code = 990230135] Future Scheduled 2023-04-13 Screening for malignant [facility] 20:30:10 neoplasm of colon Hospital (procedure) [code = 646658774] Future Scheduled 2023-04-13 Screening for malignant [facility] 20:30:10 neoplasm of colon Hospital (procedure) [code = 924831410] Future Scheduled 2023-04-13 COVID-19 VACCINE (#1) [facility] 20:30:10 [code = COVID-19 VACCINE Hos pital (#1)] Future Scheduled 2023-04-13 Pneumococcal Vaccine: [facility] 20:30:10 Pediatrics (0 to 5 Years) Ho spital and At-Risk Patients (6 to 64 Years) (1 - PCV) [code = Pneumococcal Vaccine: Pediatrics (0 to 5 Years) and At-Risk Patients (6 to 64 Years) (1 - PCV)] Future Scheduled 2023-04-13 DIABETES: RETINAL EYE [facility] 20:30:10 EXAM [code = DIABETES: Hospi jose RETINAL EYE EXAM] Future Scheduled 2023-04-13 DIABETIC FOOT EXAM [code [facility] 20:30:10 = DIABETIC FOOT EXAM] Hospit al Future Scheduled 2023-04-13 URINE MICROALBUMIN [code [facility] 20:30:10 = URINE MICROALBUMIN] Hospit al Future Scheduled 2023-04-13 Hepatitis C screening [facility] 20:30:10 (procedure) [code = Hospital 166633298] Future Scheduled 2023-04-13 SHINGLES VACCINES (1 of [facility] 20:30:10 2) [code = SHINGLES Hospital VACCINES (1 of 2)] Future Scheduled 2023-04-13 Screening for malignant [facility] 20:30:10 neoplasm of colon Hospital (procedure) [code = 816951689] Future Scheduled 2023-04-13 Screening for malignant [facility] 20:30:10 neoplasm of colon Hospital (procedure) [code = 115958333] Future Scheduled 2023-04-13 INFLUENZA VACCINE (#1) [facility] Test 20:30:10 [code = INFLUENZA VACCINE Ho spital (#1)] Future Scheduled 2023-04-13 Screening for malignant [facility] 20:30:10 neoplasm of colon Hospital (procedure) [code = 607942304] Future Scheduled 2023-04-13 Screening for malignant [facility] 20:30:10 neoplasm of colon Hospital (procedure) [code = 752927329] Future Scheduled 2023-04-13 Screening for malignant [facility] 20:30:10 neoplasm of colon Hospital (procedure) [code = 637217331] Future Scheduled 2023-04-13 COVID-19 VACCINE (#1) [facility] 20:30:10 [code = COVID-19 VACCINE Hos pital (#1)] Future Scheduled 2023-04-13 Pneumococcal Vaccine: [facility] 20:30:10 Pediatrics (0 to 5 Years) Ho spital and At-Risk Patients (6 to 64 Years) (1 - PCV) [code = Pneumococcal Vaccine: Pediatrics (0 to 5 Years) and At-Risk Patients (6 to 64 Years) (1 - PCV)] Future Scheduled 2023-04-13 DIABETES: RETINAL EYE [facility] 20:30:10 EXAM [code = DIABETES: Hospi jose RETINAL EYE EXAM] Future Scheduled 2023-04-13 DIABETIC FOOT EXAM [code [facility] 20:30:10 = DIABETIC FOOT EXAM] Hospit al Future Scheduled 2023-04-13 URINE MICROALBUMIN [code [facility] 20:30:10 = URINE MICROALBUMIN] Hospit al Future Scheduled 2023-04-13 Hepatitis C screening [facility] 20:30:10 (procedure) [code = Hospital 647381882] Future Scheduled 2023-04-13 SHINGLES VACCINES (1 of [facility] 20:30:10 2) [code = SHINGLES Hospital VACCINES (1 of 2)] Future Scheduled 2023-04-13 Screening for malignant [facility] 20:30:10 neoplasm of colon Hospital (procedure) [code = 208023123] Future Scheduled 2023-04-13 Screening for malignant [facility] 20:30:10 neoplasm of colon Hospital (procedure) [code = 732636676] Future Scheduled 2023-04-13 INFLUENZA VACCINE (#1) [facility] Test 20:30:10 [code = INFLUENZA VACCINE Ho spital (#1)] Future Scheduled 2023-01-21 Influenza Vaccine (#1[facility] [code = Influenza Vaccine Me dical Center (#1)] Future Scheduled 2023-01-21 Influenza Vaccine (#1[facility] 00:00:00 [code = Influenza Vaccine Me dical Center (#1)] Future Scheduled 2022-05-[address] [facility] 00:00:00 (12+) [code = DEPRESSION Med ical Center SCREENING (12+)] Future Scheduled 2022-05-[address] [facility] 00:00:00 (12+) [code = DEPRESSION Med ical Center SCREENING (12+)] Future Scheduled 2022-05-[address]procedure[facility] [code = 49844475] Future Scheduled 2022-05-[address] [facility] 00:[facility]:00 [facility] (procedure) [facility] [code = 43377830] Future Scheduled 2017-10-18 Screening for malignant [facility] 00:00:00 neoplasm of lung Medical Marcie ter (procedure) [code = 739425150] Future Scheduled 2017-10-18 SHINGLES VACCINES ([address] [facility] 00:00:00 2) [code = SHINGLES Medical Center VACCINES (1 of 2)] Future Scheduled 2017-10-18 Screening for malignant [facility] 00:00:00 neoplasm of lung Medical [facility]ie ter (procedure) [code = 232626569] Future Scheduled 2017-10-18 SHINGLES VACCINES ([address] [facility] 00:00:00 2) [code = SHINGLES Medical Center VACCINES (1 of 2)] Future Scheduled 1986-10-18 DTAP/TDAP/TD VACCINES ([address] [facility] 00:00:00 - Tdap) [code = Medical Cent er DTAP/TDAP/TD VACCINES (1 - Tdap)] Future Scheduled 1986-10-18 DTAP/TDAP/TD VACCINES ([address] [facility] 00:00:00 - Tdap) [code = Medical Cent er DTAP/TDAP/TD VACCINES (1 - Tdap)] Future Scheduled 1985-10-18 HEPATITIS C [facility]CRE[facility]ING [facility]:00 [code = HEPATITIS C Medical Center SCREENING] Future Scheduled 1985-10-18 HEPATITIS C [facility]CRE[facility]ING [facility] 00:00:00 [code = HEPATITIS C Medical Center SCREENING] Future Scheduled 1982-10-[address] [facility] 00:[facility]:00 virus screening Medical Cent er (procedure) [code = 516333635] Future Scheduled 1982-10-[address] [facility] 00:00:00 virus screening Medical Cent er (procedure) [code = 861087466] Future Scheduled 1977-10-18 DIABETIC EYE EXAM [code = [facility] 00:00:00 DIABETIC EYE EXAM] Medical C enter Future Scheduled 1977-10-18 Diabetic foot examination [facility] 00:00:00 (regime/therapy) [code = [facility] 753259455] Future Scheduled 1977-10-18 Urine screening for [facility] 00:00:00 protein (procedure) [code [facility] = 613925325] Future Scheduled 1977-10-18 DIABETIC EYE EXAM [code = [facility] 00:00:00 DIABETIC EYE EXAM] Medical C enter Future Scheduled 1977-10-18 Diabetic foot examination [facility] 00:00:00 (regime/therapy) [code = [facility] 479293723] Future Scheduled 1977-10-18 Urine screening for [facility] 00:00:00 protein (procedure) [code [facility] = 414211122] Future Scheduled 1973-10-18 Pneumococcal Vaccine: [facility] 00:00:00 0-64 Years (1 - PCV) Medical Center [code = Pneumococcal Vaccine: 0-64 Years (1 - PCV)] Future Scheduled 1973-10-18 Pneumococcal Vaccine: [facility] 00:00:00 0-64 Years (1 - PCV) Medical Center [code = Pneumococcal Vaccine: 0-64 Years (1 - PCV)] Future Scheduled 1968-04-20 COVID-19 VACCINE (#1) [facility] 00:00:00 [code = COVID-19 VACCINE Med ical Center (#1)] Future Scheduled 1968-04-20 COVID-19 VACCINE (#1) [facility] 00:00:00 [code = COVID-19 VACCINE Med ical Center (#1)] Future Scheduled 1967 CT Colonography (combo) [facility] 00:00:00 [code = CT Colonography Medi ravi Center (combo)] Future Scheduled 1967 Screening for malignant [facility] 00:00:00 neoplasm of colon Medical Ce nter (procedure) [code = 424099897] Future Scheduled 1967 Screening for malignant [facility] 00:00:00 neoplasm of colon Medical Ce nter (procedure) [code = 379472246] Future Scheduled 1967 Screening for malignant [facility] 00:00:00 neoplasm of colon Medical Ce nter (procedure) [code = 785560526] Future Scheduled 1967 Screening for malignant [facility] 00:00:00 neoplasm of colon Medical Ce nter (procedure) [code = 087720473] Future Scheduled 1967 Sigmoidoscopy [code = [facility] Sigmoidoscopy] Medical Cente r Future Scheduled 1967 Sigmoidoscopy [code = [facility] Sigmoidoscopy] Medical Cente r Future Scheduled 1967 CT Colonography (combo) [facility] 00:00:00 [code = CT Colonography Medi ravi Center (combo)] Future Scheduled 1967 Screening for malignant [facility] 00:00:00 neoplasm of colon Medical Ce nter (procedure) [code = 970608752] Future Scheduled 1967 Screening for malignant [facility] 00:00:00 neoplasm of colon Medical Ce nter (procedure) [code = 054860143] Future Scheduled 1967 Screening for malignant [facility] 00:00:00 neoplasm of colon Medical Ce nter (procedure) [code = 154902294] Future Scheduled 1967 Screening for malignant [facility] 00:00:00 neoplasm of colon Medical Ce nter (procedure) [code = 845402872] Encounters Start End Encounter Admission Attending Care Care Encounter Source Date/Time Date/Time Type Type Clinicians Facility Department ID 2022-09-30 Outpatient [facility] [id number] Danyelle 15:11:07 [id number] [facility] 2022-05-07 Outpatient SATNAM DIAM [facility] Surgery [id number] SLE 00:25:08 2023-01-31 2023-01-31 Telephone Younis, 1.2.840.1 [id number] Methodi 00:00:00 00:00:[address] 3.430.2.7 Hospit a .3.511009 l .8 2023-01-31 2023-01-31 Telephone Younis, 1.2.840.1 [id number] Methodi 00:00:00 00:00:[address] 3.430.2.7 Hospit a .3.652577 l .8 2022-06-16 2022-11-08 Office Dima Sharma 1.2.840.1 [id number] Methodi 15:30:00 13:49:39 Visit Satnam 91541.1.[address] 3.430.2.7 Hospit a .3.632832 l .8 2022-06-16 2022-11-08 Office Dima Sharma 1.2.840.1 [id number] Methodi 15:30:00 13:49:39 Visit Satnam 90719.1.[address] 3.430.2.7 Hospit a .3.967031 l .8 2022-09-30 2022-09-30 ([facility]) [facility] [id number] Gr alison 00:00:00 00:00:00 [facility] 2022-09-16 2022-09-16 Telephone Martinez, 1.2.840.1 [id number] Methodi 00:00:00 00:00:[address] 3.430.2.7 Hospit a .3.363535 l .8 2022-09-16 2022-09-16 Refill [place], 1.2.840.1 [id number] Methodi 00:00:00 00:00:00 My D [address]2359.1.[address] 3.430.2.7 Hospit a .3.127489 l .8 2022-09-16 2022-09-16 Telephone Martinez, 1.2.840.1 [id number] Methodi 00:00:00 00:00:[address] 3.430.2.7 Hospit a .3.757896 l .8 2022-09-16 2022-09-16 Refill [place], 1.2.840.1 [id number] 2100 [id number] Methodi 00:00:00 00:00:00 [address] Connelly 38408.1.[address] 3.430.2.7 Hospit a .3.769401 l .8 2022-08-25 2022-08-25 Office Dima Sharma 1.2.840.1 [id number] Methodi 15:20:00 16:23:17 Visit Satnam 40797.1.[address] 3.430.2.7 Hospit a .3.678205 l .8 2022-08-25 2022-08-25 Office Dima Sharma 1.2.840.1 [id number] Methodi 15:20:00 16:23:17 Visit Satnam 39638.1.[address] 3.430.2.7 Hospit a .3.126277 l .8 2022-08-25 2022-08-25 Travel 1.2.840.1 1.2.937.193 0925 [id number] Methodi 00:00:00 00:00:[address] 3.430.2.7 0.2.7.3.698 Ho spita .3.635478 084.8 l .8 2022-08-25 2022-08-25 Travel 1.2.840.1 1.2.254.012 6300 [id number] Methodi 00:00:00 00:00:[address] 3.430.2.7 0.2.7.3.698 Ho spita .3.883837 084.8 l .8 2022-08-13 2022-08-13 Travel 1.2.840.1 1.2.327.442 4600 151494 Methodi 00:00:00 00:00:[address] 3.430.2.7 0.2.7.3.698 Ho spita .3.858954 084.8 l .8 2022-08-13 2022-08-13 Travel 1.2.840.1 1.2.465.803 2186 [id number] Methodi 00:00:00 00:00:[address] 3.430.2.7 0.2.7.3.698 Ho spita .3.794464 084.8 l .8 2022-08-12 2022-08-12 Telephone [place], 1.2.840.1 [id number] Methodi 00:00:00 00:00:00 My D 37550.1.[address] 3.430.2.7 Hospit a .3.304168 l .8 2022-08-12 2022-08-12 Telephone [place], 1.2.840.1 [id number] Methodi 00:00:00 00:00:00 My D [address]1599.1.[address] 3.430.2.7 Hospit a .3.307505 l .8 2022-06-16 2022-06-16 Travel 1.2.840.1 1.2.840.863 1615 [id number] Methodi 00:00:00 00:00:[address] 3.430.2.7 0.2.7.3.698 Ho spita .3.918493 084.8 l .8 2022-06-16 2022-06-16 Travel 1.2.840.1 1.2.902.668 6387 [id number] Methodi 00:00:00 00:00:[address] 3.430.2.7 0.2.7.3.698 Ho spita .3.882974 084.8 l .8 2022-05-21 2022-05-21 Office Dima Sharma 1.2.840.1 [id number] Methodi 09:00:00 10:35:24 Visit Satnam 99663.1.[address] 3.430.2.7 Hospit a .3.149836 l .8 2022-05-21 2022-05-21 Office Dima Sharma 1.2.840.1 [id number] Methodi 09:00:00 10:35:24 Visit Satnam 25435.1.[address] 3.430.2.7 Hospit a .3.763562 l .8 2022-05-21 2022-05-21 Travel 1.2.840.1 1.2.404.773 6380 [id number] Methodi 00:00:00 00:00:[address] 3.430.2.7 0.2.7.3.698 Ho spita .3.778022 084.8 l .8 2022-05-21 2022-05-21 Travel 1.2.840.1 1.2.919.012 1983 [id number] Methodi 00:00:00 00:00:[address] 3.430.2.7 0.2.7.3.698 Ho spita .3.161235 084.8 l .8 2022-05-20 2022-05-20 Outpatient [facility] [id number] [facility]H 00:00:00 00:00:00 KALEN 2022-05-11 2022-05-11 [facility] Quinn [facility] [id number] 00:00[facility] 00:00:00 [facility] 2022-05-11 2022-05-11 [facility] Ball [facility] [id number] 00:00[facility]00 00:00:00 [facility] 2022-05-10 2022-05-10 Travel 1.2.840.1 1.2.247.211 1263 [id number] Methodi 00:00:00 00:00:[address] 3.430.2.7 0.2.7.3.698 Ho spita .3.767411 084.8 l .8 2022-05-10 2022-05-10 Travel 1.2.840.1 1.2.060.159 2596 [id number] Methodi 00:00:00 00:00:[address] 3.430.2.7 0.2.7.3.698 Ho spita .3.455588 084.8 l .8 2022-05-07 2022-05-09 Inpatient ER [facility] Cardiology [id number] SLE 00:46:00 16:17:00 AUTUMN 2022-05-07 2022-05-09 Hospital ER Dima Sharma [facility] [id number] 00:46:00 16:17:00 Encounter Miguel [facility] 2022-05-07 2022[facility]05-09 [facility] [id number] 00:46:00 16:17:00 Encounter Autumn Rivera [facility] 2022-05-07 2022-05-07 Surgery Dima Sharma [facility] [id number] 00:25:00 02:18:00 [facility] 2022-05-07 2022-05-07 Surgery Dima Sharma [facility] [id number] 00:25:00 02:18:00 [facility] 2022-05-07 2022-05-07 Orders [facility] [id number] 00:00:00 00:00:00 [facility] 2022-05-07 2022-05-07 Travel [facility] [id number] [facility] 00:[facility]00 00:00:00 [facility] 2022-05-07 2022-05-07 [facility] [id number] 00:00:00 00:00:[address] [facility] 2022-05-07 2022-05-07 Orders [facility] [id number] 00:00:00 00:00:00 [facility] 2022-05-07 2022-05-07 Travel [facility] [id number] [facility] 00:[facility] 00:00:00 [facility] 2022-05-07 2022-05-07 [facility] [id number] 00:00:00 00:00:[address] [facility] 2022-01-27 2022-01-27 Outpatient AOSM AO [id number] Kenzie 00:00:00 00:00:00 [id number] Orthop e dic Sports Medicin e 2020-11-03 2020-11-03 [facility] 1.2.840.114 [id number] Univers 08:04:35 08:40:43 Visit Renny Stevens 350.1.13.10 chente Ortega 4.2.7.2.686 Abel Mendoza [phone] Me dical [address] 2020-11-03 2020-11-03 Outpatient [facility] [id number] Univers 08:00:00 08:00:00 RENNY stewart [facility] 2020-11-03 2020-11-03 Orders Doctor CURRY 1.2.840.114 [id number] Univers 00:00:00 00:00:00 Only Unassigned, ALEJO 350.1.13.10 ity of [facility] 4.2.7.2.686 Dipka as [phone] [address] 2020-06-17 2020-06-17 Urgent Provider, [facility] 1.2.840.114 [id number] Univers 07:58:18 09:28:23 Care Anejosep, [facility] 350.1.13.10 ity of [place] 4.2.7.2.686 Dipak as Professio [phone] Mt dical [address] Office Building One 2020-06-17 2020-06-17 Urgent Provider, [facility] 1.2.569.690 [id number] 07:58:18 09:28:23 Care [facility] 350.1.13.10 Care [place] 4.2.7.2.686 Professio [phone] [place] [address] [address] 2020-06-17 2020-06-[address] [facility] [id number] Univers 08:00:00 08:00:00 ity of [facility] 2020-06-17 2020-06-17 Letter Doctor CURRY 1.2.840.114 [id number] Univers 00:00:00 00:00:00 (Out) Unassigned, ALEJO 350.1.13.10 ity of [facility] 4.2.7.2.686 Dipak as [phone] [address] 2020-06-17 2020-06-17 Letter Doctor CURRY 1.2.840.114 [id number] 00:00:00 00:00:00 (Out) Unassigned, ALEJO 350.1.13.10 [facility] 4.2.7.2.686 [id number] 044 2019-12-30 2019-12-30 Tri Chiu [facility] 1.2.840.114 [id number] Univers 00:00:00 00:00:00 [facility] 350.1.13.10 it y of [place] 4.2.7.2.686 Dipak as Professio [phone] [place] [address] [address] [facility] 2019-12-30 2019-12-30 Refill Apple, [facility] 1.2.840.114 [id number] 00:00:00 00:00:00 [facility] 350.1.13.10 [place] 4.2.7.2.686 Professio [phone] [place] [address] [address] 2019-12-10 2019-12-10 Patient Pcp, [facility] 1.2.840.114 [id number] Univers 00:00:00 00:00:00 Secure Msg Patient HEALTH 350.1.13.10 ity of Does Not [place] 4.2.7.2.686 Dipak as Have A City [phone] [facility] 2019-12-10 2019-12-10 Patient Doctor [facility] 1.2.840.114 [id number] Univers 00:00:00 00:00:00 Secure Msg Unassigned, HEALTH 350.1.13.10 ity of [place] [facility] 4.2.7.2.686 Dipak as PROFESSIO [phone] [address] OFFICE BUILDING ONE 2019-12-10 2019-12-10 Telephone Nurse, Dipak [facility] 1.2.840.114 [id number] Univers 00:00:00 00:00:00 Urgent HEALTH 350.1.13.10 it [place] of [place]7.2.686 [place] [phone] [facility] 2019-12-10 2019-12-10 Patient Doctor [facility] 1.2.840.114 [id number] Univers 00:00:00 00:00:00 Secure Msg Unassigned, Health 350.1.13.10 ity of [place] 4.2.7.2.686 Dipak as Professio [phone] [address] Office Building One 2019-12-08 2019-12-09 Urgent Pob1, Acute Care Clinic [facility] 1. 2.840.114 [id number] Univers 12:33:07 12:29:35 Care Sahra [facility] 350.1.13.10 ity of [place] 4.2.7.2.686 Dipak as Professio [phone] Mt dical nal [address] One 2019-12-09 2019-12-09 [facility] 1.2.840.114 [id number] Univers 00:00:00 00:00:00 Luis Daniel [facility] 350.1.13.10 it y of [place] 4.2.7.2.686 Dipak as Professio [phone] Mt dical nal [address] Office Building [facility] 2019-12-08 2019-12-08 [facility] 1.2.876.777 [id number] Univers 13:01:00 23:59:00 Encounter Luis Daniel Stevens 350.1.13.10 ity of [place] 4.2.7.2.686 [place] [facility] [phone] [facility] [address] 2019-12-08 2019-12-[address] [facility] [id number] Univers 13:20:00 13:20:00 ISELA ity of [facility] 2019-12-05 2019-12-05 Outpatient R ALDO [facility] [id number] Univers 20:20:00 20:20:00 ity of [facility] 2019-12-05 2019-12-05 Patient Doctor CURRY 1.2.840.114 [id number] Univers 00:00:00 00:00:00 Secure Msg Unassigned, ALEJO 350.1.13.10 ity of [facility] 4.2.7.2.686 Dipak as [phone] [address] 2019-12-05 2019-12-05 Patient Doctor CURRY 1.2.840.114 [id number] Univers 00:00:00 00:00:00 Secure Msg Unassigned, ALEJO 350.1.13.10 ity of [facility] 4.2.7.2.686 Dipak as [phone] [address] 2019-12-04 2019-12-04 Patient Doctor CURRY 1.2.840.114 [id number] Univers 00:00:00 00:00:00 Secure Msg Unassigned, ALEJO 350.1.13.10 ity of [facility] 4.2.7.2.686 Dipak as [phone] [address] 2019-12-03 2019-12-03 Laboratory Lab, Adc Fam Pob I [facility] 1.2. 840.114 [id number] Univers 13:42:24 14:02:24 Only Erik Ng [facility] 350.1.13.10 ity of [place] 4.2.7.2.686 Dipak as Professio [phone] [address] Office Building One 2019-12-03 2019-12-[address] [facility] [id number] Univers 13:40:00 13:40:00 OMELIZABETH ity of [facility] 2019-12-03 2019-12-03 Letter Doctor CURRY 1.2.840.114 [id number] Univers 00:00:00 00:00:00 (Out) Unassigned, ALEJO 350.1.13.10 ity of [facility] 4.2.7.2.686 Dipak as [phone] [address] Results Test Description Test Time Test Comments Results Result Comments Source Lipid panel 2022-09-08 08:20:00 Test Item Value Reference Range Interpretation Comme nts Cholesterol, total 268 mg/dL <=200 H (test code = 2093-3) HDL cholesterol (test 36 mg/dL See_Comment L [Auto mated message] The code = 2085-9) system which generated this result transmit jacqui reference range: > OR = 4 0. The reference range was not used to interpret th is result as normal/abnormal . Triglycerides (test 198 mg/dL <=150 H code = 2571-8) LDL cholesterol 194 mg/dL (calc) H LDL-C levels > or = 190 calculated (test code mg/dL may indicate familial = 68909-1) hypercholestero lemia (FH). Clinical assess ment and measurement of blood lipid levels should b e considered for all first d egree relatives of pa tients with an FH diagnosis . For questions about testing for familialhyperch olesterolemia , please call [employer] [facility] at .[phone] .Pranay Irby, et al. J Nation al Lipid Association Rec ommendations for Patient-Marcie tered Management of D yslipidemia: Part 1 Journal of Clinical Lipidology 2015 ;9(2), 129-169.Referen ce range: <100 Desirable range <100 mg/dL for prima ry prevention; <70 mg/dL for patients with C HD or diabetic patien ts with > or = 2 CHD risk fa ctors. LDL-C is now calculat ed using the Soto-Gaytan calculation, which is a chung dated novel method ralphin g better accuracy than t he Friedewald equation in the estimation of LDL-C. Annette n SS et al. PAULO. 2013;310( 19): 6254-5624 ([email or web address]://[email or web address] [email or web address] Extreme/faq/ [email or web address]) Cholesterol/HDL ratio 7.4 See_Comment H [Auto mated message] The (test code = 9830-1) system which generated this result transmit jacqui reference range: <5.0 (ca lc). The reference range was not used to interpret th is result as normal/abnormal . Non-HDL cholesterol 232 See_Comment H Non-HDL level > or = 220 is (test code = 10716-4) very h igh and may indicate genetic neeta l hypercholestero lemia (FH). Clinical assess ment and measurement of blood lipid levels should b e considered for all first-d egree relatives of pa davys with an FH diagnosis . For patients with d iabetes plus 1 major ASCVD r isk factor, treating to a n on-HDL-C goal of <100 mg/dL ( LDL-C of <70 mg/dL) is consi dered a therapeutic opt ion. [Automated mess age] The system which ge nerated this result transmit jacqui reference range: <130 mg/ dL (calc). The reference r ameena was not used to interpr et this result as rosa elena l/abnormal. RAC (test code = RAC) Performing Organization Information: Site ID: RGA Name: [email or web address] Address: [address] [place] [id number] Director: Tino Rodriguez Lab Interpretation Abnormal (test code = 72436-5) [facility] [id number] 08:20:00 Test Item Value Reference Interpretation Comments Range Hemoglobin A1C 5.7 See_Comment H For someone w riky (test code = known diabetes, a 9083-4) hemoglobin A1c value between 5.7% an d 6.4% is consist ent withprediabetes and should be confi rmed with a follow-u p test. For someo ne with known diab etes, a value <7%indicates that their diabetes is well controlled . K2vspfzbyw shou ld be individualized based on duration ofdiabetes, age , comorbid condit ions, and otherconsiderat ions. This assay resu lt is consistent with an increased risko f diabetes. Curre ntly, no consensus ex ists regarding use ofhemoglobin A1 c for diagnosis of diabetes for children. [Auto mated message] The sy stem which generated this result transmit jacqui reference range : <5.7 % of total Hgb. The reference r ameena was not used to interpret this result as normal/abnormal . RAC (test code = Performing RAC) Organization Information: Site ID: RGA Name: [email or web address] Address: [address] [place], [place] [id number] Director: Tino Rodriguez Lab Interpretation Abnormal (test code = 40440-5) [facility] [id number] 08:20:00 Test Item Value Reference Interpretation Comments Range Cholesterol, total 268 mg/dL <=200 H (test code = 2093-3) HDL cholesterol 36 mg/dL See_Comment L [Automated message] (test code = The system ic h 2085-9) generated this result transmitted ref erence range: > OR = 4 0. The reference range was not used to interpr et this result as normal/abnormal . Triglycerides 198 mg/dL <=150 H (test code = 2571-8) LDL cholesterol 194 mg/dL (calc) H LDL-C levels > or = 190 calculated (test mg/dL may i ndicate code = 59514-9) familial hypercholestero lemia (FH). Clinical assessment and measurement of blood lipid levels sh ould be considered for all first degree re latives of patients wit h an FH diagnosis. For questions about testing for familialhyperch olestero lemia, please c all [employer] at [phone].INFO .Sun churchill T, et al. J N ational Lipid Associati on Recommendations for Patient-Centere d Management of Dyslipidemia: P art 1 Journal of Clin ical Lipidology 2015 ;9(2), 129-169.Referen ce range: <100 Darion irable range <100 mg/d L for primary prevent ion; <70 mg/dL for patie nts with CHD or diabetic patients with > or = 2 CHD risk factor s. LDL-C is now calculat ed using the Luis ins calculation, wh ich is a validated novel method providing sadaf r accuracy than t mario Friedewald equa tion in the estimation of LDL-C. Soto Bolton S et al. PAULO. 2013;310( 19): 7914-2036 ([email or web address].[facility] /faq/FAQ 164) Cholesterol/HDL 7.4 See_Comment H [Automated message] ratio (test code = The syste m which 9830-1) generated this result transmitted ref erence range: <5.0 (ca lc). The reference range was not used to interpr et this result as normal/abnormal . Non-HDL 232 See_Comment H Non-HDL level > or = cholesterol (test 220 is octavio y high and code = 70744-9) may indicate genetic familial hypercholestero lemia (FH). Clinical assessment and measurement of blood lipid levels sh ould be considered for all first-degree re latives of patients wit h an FH diagnosis. For patients with diabetes p penny 1 major ASCVD ris k factor, treatin g to a non-HDL-C goal of <100 mg/dL (LDL-C of <70 mg/dL) is consi dered a therapeutic opt ion. [Automated mess age] The system which ge nerated this result tra nsmitted reference range : <130 mg/dL (calc). T he reference range was not used to interpr et this result as normal/abnormal . RAC (test code = Performing RAC) Organization Information: Site ID: RGA Name: [email or web address] Lab Address: [address] [place] [address] Director: Tino Rodriguez Lab Interpretation Abnormal (test code = 08868-1) [facility] [id number] 08:20:00 Test Item Value Reference Interpretation Comments Range Hemoglobin A1C 5.7 See_Comment H For someone w ithout (test code = known diabetes, a 4548-4) hemoglobin A1c value between 5.7% an d 6.4% is consist ent withprediabetes and should be confi rmed with a follow-u p test. For someo ne with known diab etes, a value <7%indicates that their diabetes is well controlled . U5qcwpqbgd shou ld be individualized based on duration ofdiabetes, age , comorbid condit ions, and otherconsiderat ions. This assay resu lt is consistent with an increased risko f diabetes. Curre ntly, no consensus ex ists regarding use ofhemoglobin A1 c for diagnosis of diabetes for children. [Auto mated message] The sy stem which generated this result transmit jacqui reference range : <5.7 % of total Hgb. The reference r ameena was not used to interpret this result as normal/abnormal . RAC (test code = Performing RAC) Organization Information: Site ID: RGA Name: [facility] Address: [address] [place] [phone] Director: Tino Rodriguez Lab Interpretation Abnormal (test code = 68088-3) [facility] - [id number] 15:55:32Ordered by an unspecified provider.[facility] - SCAN 2022-05-10 15:55:32Ordered by an unspecified provider.[facility]2D Echo W/Doppler(CW/PW/Color)2022-05-09 15:31:24Ejection FractionSLEH ECHO HEARTLAB MKCKESSON [facility] W/Doppler(CW/PW/Color)2022-05-09 15:31:24Ejection FractionSLEH ECHO HEARTLAB MKCKKaiser Foundation HospitalPO-Glucose [id number] 11:22:27 Test Item Value Reference Range Interpretation Comments POC-Glucose Meter (test 196 mg/dL 70-110 H : TE STED AT [facility] code = 1538) [address] [facility], [address]: Public Service Director/Techni willam ID = [id number] for Miesha Herron Lab Interpretation (test Abnormal code = 20925-6) [facility]-Glucose [id number] 11:22:27 Test Item Value Reference Range Interpretation Comments POC-Glucose Meter (test 196 mg/dL 70-110 H : TE STED AT [facility] code = 1538) [address], [address]: Public Service Director/Techni willam ID = [id number] for Bishnu Herronia Lab Interpretation (test Abnormal code = 06694-2) [facility] MedicinePOCT-GLUCOSE [id number] 11:22:27 Test Item Value Reference Range Interpretation Comments POC-GLUCOSE METER 196 mg/dL 70-110 H : [facility] (BEAKER) (test code = [facility], 1538) [address]: Public Service Director/Techni willam ID = [id number] for Bishnu Herronia [id number] 08:47:44 Test Item Value Reference Range Interpretation Comments PARTIAL THROMBOPLASTIN TIME 48.1 seconds 22.5-36.0 H (BEAKER) (test code = 760) POCT-GLUCOSE [id number] 07:37:42 Test Item Value Reference Range Interpretation Comments POC-GLUCOSE METER 244 mg/dL 70-110 H : [facility] (BEAKER) (test code = [facility], 1538) [address]: Public Service Director/Techni willam ID = [id number] for Miesha Herron BASIC METABOLIC [id number] 02:59:29 Test Item Value Reference Range Interpretation Comments SODIUM (BEAKER) 135 meq/L 136-145 L (test code = 381) POTASSIUM 4.0 meq/L 3.5-5.1 (BEAKER) (test code = 379) CHLORIDE (BEAKER) 103 meq/L 98-107 (test code = 382) CO2 (BEAKER) 21 meq/L 22-29 L (test code = 355) BLOOD UREA 18 mg/dL 7-21 NITROGEN (BEAKER) (test code = 354) CREATININE 1.08 mg/dL 0.57-1.25 (BEAKER) (test code = 358) GLUCOSE RANDOM 247 mg/dL 70-105 H (BEAKER) (test code = 652) CALCIUM (BEAKER) 9.4 mg/dL 8.4-10.2 (test code = 697) EGFR (BEAKER) 83 Interpretatio n of eGFR (test code = mL/min/1.73 values Stage De scription 1092) sq m Result G1 Rosa Elena l or high >=90 G2 Mildly decreased 60-89 G3a Mildl y to moderately 45-5 9 G3b Moderately to s everely 30-44 G4 Severl y decreased 15-29 G5 Kidney failure <15Reported eGF R is based on the CKD-EPI 2020 equation that d oes not use a race coefficientEsti mated GFR is not as accur ate as Creatinine Bhakti elyssa in predicting glom erular filtration rate . Estimated GFR is not appl icable for dialysis patien ts Public Service Director ID - SHRUTHI [id number] 01:43:37 Test Item Value Reference Range Interpretation Comments PARTIAL THROMBOPLASTIN TIME 49.2 seconds 22.5-36.0 H (BEAKER) (test code = 760) CBC (HEMOGRAM ONLY)2022-05-09 01:30:00 Test Item Value Reference Range Interpretation Comments WHITE BLOOD CELL COUNT (BEAKER) 8.5 K/ L 3.5-10.5 (test code = 775) RED BLOOD CELL COUNT (BEAKER) 5.53 M/ L 4.63-6.08 (test code = 761) HEMOGLOBIN (BEAKER) (test code = 16.7 GM/DL 13.7-17.5 410) HEMATOCRIT (BEAKER) (test code = 48.7 % 40.1-51.0 411) MEAN CORPUSCULAR VOLUME (BEAKER) 88 fL 79-92 (test code = 753) MEAN CORPUSCULAR HEMOGLOBIN 30.2 pg 25.7-32.2 (BEAKER) (test code = 751) MEAN CORPUSCULAR HEMOGLOBIN CONC 34.3 GM/DL 32.3-36.5 (BEAKER) (test code = 752) RED CELL DISTRIBUTION WIDTH 12.3 % 11.6-14.4 (BEAKER) (test code = 412) PLATELET COUNT (BEAKER) (test 172 K/CU MM 150-450 code = 756) MEAN PLATELET VOLUME (BEAKER) 9.5 fL 9.4-12.4 (test code = 754) NUCLEATED RED BLOOD CELLS 0 /100 WBC 0-0 (BEAKER) (test code = 413) POCT-GLUCOSE [id number] 22:59:45 Test Item Value Reference Range Interpretation Comments POC-GLUCOSE METER 269 mg/dL 70-110 H : TESTED A T [facility] 6720 (BEAKER) (test code [facility], = 1538) [address]: Public Service Director/Techni willam ID = [id number] for Radha Archuleta [id number] 18:42:21 Test Item Value Reference Range Interpretation Comments PARTIAL THROMBOPLASTIN TIME 31.9 seconds 22.5-36.0 (BEAKER) (test code = 760) POCT-GLUCOSE [id number] 16:20:37 Test Item Value Reference Range Interpretation Comments POC-GLUCOSE METER 229 mg/dL 70-110 H : TESTED A T [facility] 6720 (BEAKER) (test code = [facility], 1538) [address]: Public Service Director/Techni willam ID = [id number] for AC COS, DEBBIE [id number] 11:55:41 Test Item Value Reference Range Interpretation Comments PARTIAL THROMBOPLASTIN TIME 34.9 seconds 22.5-36.0 (BEAKER) (test code = 760) POCT-GLUCOSE [id number] 11:46:09 Test Item Value Reference Range Interpretation Comments POC-GLUCOSE METER 266 mg/dL 70-110 H : TESTED A T [facility] 6720 (BEAKER) (test code = [facility], 1538) [address]: Public Service Director/Techni willam ID = [id number] for MARICRUZ BOWIEA POCT-GLUCOSE [id number] 07:52:48 Test Item Value Reference Range Interpretation Comments POC-GLUCOSE METER 244 mg/dL 70-110 H : TESTED A T [facility] 6720 (BEAKER) (test code = [facility], 1538) [address]: Public Service Director/Techni willam ID = [id number] for AC COS, DEBBIE COMPREHENSIVE METABOLIC [id number] 05:29:56 Test Item Value Reference Range Interpretation Comments TOTAL PROTEIN 7.3 gm/dL 6.0-8.3 Specimen sligh tly (BEAKER) (test hemolyzed code = 770) ALBUMIN (BEAKER) 4.1 g/dL 3.5-5.0 Specimen sl ightly (test code = 1145) hemolyzed ALKALINE 52 U/L 40-150 PHOSPHATASE (BEAKER) (test code = 346) BILIRUBIN TOTAL 1.0 mg/dL 0.2-1.2 Specimen sli ghtly (BEAKER) (test hemolyzed code = 377) SODIUM (BEAKER) 136 meq/L 136-145 (test code = 381) POTASSIUM (BEAKER) 4.1 meq/L 3.5-5.1 Specimen slightly (test code = 379) hemolyzed CHLORIDE (BEAKER) 101 meq/L 98-107 (test code = 382) CO2 (BEAKER) (test 25 meq/L 22-29 code = 355) BLOOD UREA 10 mg/dL 7-21 NITROGEN (BEAKER) (test code = 354) CREATININE 0.97 mg/dL 0.57-1.25 Specimen slight ly (BEAKER) (test hemolyzed code = 358) GLUCOSE RANDOM 243 mg/dL 70-105 H (BEAKER) (test code = 652) CALCIUM (BEAKER) 9.5 mg/dL 8.4-10.2 (test code = 697) AST (SGOT) 91 U/L 5-34 H Specimen slight ly (BEAKER) (test hemolyzed code = 353) ALT (SGPT) 52 U/L 6-55 Specimen slight ly (BEAKER) (test hemolyzed code = 347) EGFR (BEAKER) 94 Interpretatio n of eGFR (test code = 1092) mL/min/1.[address] age Description sq m Result G1 Norm al or high >=90 G2 Mildly decreased 60-89 G3a Mildl y to moderately 45-5 9 G3b Moderately to s everely 30-44 G4 Severl y decreased 15-29 G5 Kidne y failure <15Reported eGF R is based on the CKD-EPI 2021 equation that d oes not use a race coefficientEsti mated GFR is not as accur ate as Creatinine Bhakti bergeron in predicting glom erular filtration rate . Estimated GFR is not appl icable for dialysis patien ts Public Service Director ID - [id number] 05:29:55 Test Item Value Reference Range Interpretation Comments MAGNESIUM (BEAKER) 1.8 mg/dL 1.6-2.6 Specimen slightly (test code = 627) hemolyzed Public Service Director ID - [id number] 05:29:55 Test Item Value Reference Range Interpretation Comments PHOSPHORUS (BEAKER) 2.6 mg/dL 2.3-4.7 Specimen slightly (test code = 604) hemolyzed Public Service Director ID - [id number] 05:12:34 Test Item Value Reference Range Interpretation Comments PARTIAL THROMBOPLASTIN TIME 33.4 seconds 22.5-36.0 (BEAKER) (test code = 760) CBC W/PLT COUNT & AUTO [id number] 04:59:45 Test Item Value Reference Range Interpretation Comments WHITE BLOOD CELL COUNT (BEAKER) 9.6 K/ L 3.5-10.5 (test code = 775) RED BLOOD CELL COUNT (BEAKER) 5.77 M/ L 4.63-6.08 (test code = 761) HEMOGLOBIN (BEAKER) (test code = 17.4 GM/DL 13.7-17.5 410) HEMATOCRIT (BEAKER) (test code = 49.7 % 40.1-51.0 411) MEAN CORPUSCULAR VOLUME (BEAKER) 86 fL 79-92 (test code = 753) MEAN CORPUSCULAR HEMOGLOBIN 30.2 pg 25.7-32.2 (BEAKER) (test code = 751) MEAN CORPUSCULAR HEMOGLOBIN CONC 35.0 GM/DL 32.3-36.5 (BEAKER) (test code = 752) RED CELL DISTRIBUTION WIDTH 12.3 % 11.6-14.4 (BEAKER) (test code = 412) PLATELET COUNT (BEAKER) (test 205 K/CU MM 150-450 code = 756) MEAN PLATELET VOLUME (BEAKER) 9.4 fL 9.4-12.4 (test code = 754) NUCLEATED RED BLOOD CELLS 0 /100 WBC 0-0 (BEAKER) (test code = 413) NEUTROPHILS RELATIVE PERCENT 66 % (BEAKER) (test code = 429) LYMPHOCYTES RELATIVE PERCENT 24 % (BEAKER) (test code = 430) MONOCYTES RELATIVE PERCENT 8 % (BEAKER) (test code = 431) EOSINOPHILS RELATIVE PERCENT 2 % (BEAKER) (test code = 432) BASOPHILS RELATIVE PERCENT 0 % (BEAKER) (test code = 437) NEUTROPHILS ABSOLUTE COUNT 6.33 K/ L 1.78-5.38 H (BEAKER) (test code = 670) LYMPHOCYTES ABSOLUTE COUNT 2.28 K/ L 1.32-3.57 (BEAKER) (test code = 414) MONOCYTES ABSOLUTE COUNT (BEAKER) 0.80 K/ L 0.30-0.82 (test code = 415) EOSINOPHILS ABSOLUTE COUNT 0.16 K/ L 0.04-0.54 (BEAKER) (test code = 416) BASOPHILS ABSOLUTE COUNT (BEAKER) 0.02 K/ L 0.01-0.08 (test code = 417) IMMATURE GRANULOCYTES-RELATIVE 0.30 % 0.00-1.00 PERCENT (BEAKER) (test code = 2801) [id number] 22:19:25 Test Item Value Reference Range Interpretation Comments PARTIAL THROMBOPLASTIN TIME 30.1 seconds 22.5-36.0 (BEAKER) (test code = 760) POCT-GLUCOSE [id number] 21:46:47 Test Item Value Reference Range Interpretation Comments POC-GLUCOSE METER 316 mg/dL 70-110 H : TESTED A T [facility] 6720 (BEAKER) (test code = [facility], 1538) [address]: Public Service Director/Techni willam ID = [id number] for Tino Dumas POCT-GLUCOSE [id number] 16:20:54 Test Item Value Reference Range Interpretation Comments POC-GLUCOSE METER 323 mg/dL 70-110 H : TESTED A T [facility] 6720 (BEAKER) (test code = [facility], 1538) [address]: Public Service Director/Techni willam ID = [id number] for An Lesley chirinos ECG 12 [id number] 15:45:56Ventricular Rate 57 BPMAtrial Rate 57 BPMP-R Interval 142 msQRS Duration 104 msQ-T Interval 420 msQTC Calculation(Bazett) 408 msP [place] 48 degreesR [place] 33 degreesT [place] -1 degrees Sinus bradycardiaST el evation consider anterior injury or acute infarct ACUTE AL / STEMI Abnormal ECGNo previousECGs availableConfirmed by Del Ashley ([id number]) on 05/07/2022 3:45:54 [facility] [id number] 15:45:56 Ventricular Rate 57 BPMAtrial Rate 57 BPMP-R Interval 142 msQRS Duration 104 msQ-T Interval 420 msQTC Calculation(Fabain) 408 msP [place] 48 degreesR [place] 33 degreesT [place] -1 degrees Sinus bradycardiaST elevation consider anterior injury or acute infarct ACUTE AL / STEMI Abnormal ECGNo previousECGs availableConfirmed by Del Ashley ([id number]) on 05/07/2022 3:45:54 [facility] CenterAPTT2022-12-16 14:44:49 Test Item Value Reference Range Interpretation Comments PARTIAL THROMBOPLASTIN TIME 28.3 seconds 22.5-36.0 (BEAKER) (test code = 760) POCT-GLUCOSE [id number] 11:48:03 Test Item Value Reference Range Interpretation Comments POC-GLUCOSE METER 274 mg/dL 70-110 H : TESTED A T [facility] 6720 ([employer]) (test code = [facility] [employer] [facility], 1538) [address]: Public Service Director/Techni willam ID = [id number] for Lesley Sarmiento HEMOGLOBIN [id number] 09:36:06 Test Item Value Reference Range Interpretation Comments HEMOGLOBIN A1C 9.7 % See_Comment H [Automated m essage] ELECTROPHORESIS ([employer]) The system which (test code = 3811) generated this result transmitted ref erence range: <=5.6%. The reference range was not used to int erpret this result as normal/abnormal . "The A1c is measured using a NGSP-certified method. HbA1c value equal to or greater than 6.5% as thediagnosis cutoff for diabetes. An HbA1c value of 5.7- 6.4% indicates increased risk for diabetes (prediabetes)."Public Service Director ID - ADMPOCT- GLUCOSE [id number] 07:07:04 Test Item Value Reference Range Interpretation Comments POC-GLUCOSE METER 265 mg/dL 70-110 H : TESTED A T [facility] 6720 ([employer]) (test code = [facility] [employer] [facility], 1538) [address]: Public Service Director/Techni willam ID = [id number] for Tino Dumas [id number] 04:37:14 Test Item Value Reference Range Interpretation Comments MAGNESIUM (BEAKER) (test code = 2.0 mg/dL 1.6-2.6 627) Public Service Director ID - [id number] 04:37:14 Test Item Value Reference Range Interpretation Comments PHOSPHORUS (BEAKER) (test code = 3.6 mg/dL 2.3-4.7 604) Public Service Director ID - MARCOLIPID [id number] 04:11:59 Test Item Value Reference Range Interpretation Comments TRIGLYCERIDES (BEAKER) (test code = 109 mg/dL 540) CHOLESTEROL (BEAKER) (test code = 242 mg/dL 631) HDL CHOLESTEROL (BEAKER) (test code 45 mg/dL = 976) LDL CHOLESTEROL CALCULATED (BEAKER) 175 mg/dL (test code = 633) Triglyceride Reference Range: Low Risk <150 Borderline 150-199 High Risk 200- 499 Very High Risk >=500Cholesterol Reference Range: Low Risk <200 Borderline 200-239 High Risk >240HDL Cholesterol Reference Range: Low Risk >=60 High Risk <40LDL Cholesterol Reference Range: Optimal <100 Near Optimal 100-129 Borderline 130-159 High 160-189 Very High >=190 Public Service Director ID - MARCOBASIC METABOLIC [id number] 04:11:58 Test Item Value Reference Range Interpretation Comments SODIUM (BEAKER) 134 meq/L 136-145 L (test code = 381) POTASSIUM 4.2 meq/L 3.5-5.1 (BEAKER) (test code = 379) CHLORIDE (BEAKER) 101 meq/L 98-107 (test code = 382) CO2 (BEAKER) 22 meq/L 22-29 (test code = 355) BLOOD UREA 14 mg/dL 7-21 NITROGEN (BEAKER) (test code = 354) CREATININE 1.14 mg/dL 0.57-1.25 (BEAKER) (test code = 358) GLUCOSE RANDOM 344 mg/dL 70-105 H (BEAKER) (test code = 652) CALCIUM (BEAKER) 9.5 mg/dL 8.4-10.2 (test code = 697) EGFR (BEAKER) 77 Interpretatio n of eGFR (test code = mL/min/1.73 values Stage De scription 1092) sq m Result G1 Rosa Elena l or high >=90 G2 Mildly decreased 60-89 G3a Mildl y to moderately 45-5 9 G3b Moderately to s everely 30-44 G4 Severl y decreased 15-29 G5 Kidne y failure <15Reported eGF R is based on the CKD-EPI 2020 equation that d oes not use a race coefficientEsti mated GFR is not as accur ate as Creatinine Bhakti elyssa in predicting glom erular filtration rate . Estimated GFR is not appl icable for dialysis patikinga ulloa Public Service Director ID - [id number] 04:01:56 Test Item Value Reference Range Interpretation Comments PARTIAL THROMBOPLASTIN TIME > seconds 22.5-36.0 HH (BEAKER) (test code = 760) POCT-GLUCOSE [id number] 03:41:55 Test Item Value Reference Range Interpretation Comments POC-GLUCOSE METER 355 mg/dL 70-110 H : TESTED A T [facility] 6720 (BEAKER) (test code = [facility] [place], 1538) [address]: Public Service Director/Techni willam ID = [id number] for Tino Dumas CBC (HEMOGRAM ONLY)2022-05-07 03:21:10 Test Item Value Reference Range Interpretation Comments WHITE BLOOD CELL COUNT (BEAKER) 11.8 K/ L 3.5-10.5 H (test code = 775) RED BLOOD CELL COUNT (BEAKER) 5.68 M/ L 4.63-6.08 (test code = 761) HEMOGLOBIN (BEAKER) (test code = 17.2 GM/DL 13.7-17.5 410) HEMATOCRIT (BEAKER) (test code = 48.8 % 40.1-51.0 411) MEAN CORPUSCULAR VOLUME (BEAKER) 86 fL 79-92 (test code = 753) MEAN CORPUSCULAR HEMOGLOBIN 30.3 pg 25.7-32.2 (BEAKER) (test code = 751) MEAN CORPUSCULAR HEMOGLOBIN CONC 35.2 GM/DL 32.3-36.5 (BEAKER) (test code = 752) RED CELL DISTRIBUTION WIDTH 12.2 % 11.6-14.4 (BEAKER) (test code = 412) PLATELET COUNT (BEAKER) (test 192 K/CU MM 150-450 code = 756) MEAN PLATELET VOLUME (BEAKER) 9.3 fL 9.4-12.4 L (test code = 754) NUCLEATED RED BLOOD CELLS 0 /100 WBC 0-0 (BEAKER) (test code = 413) POC ACTIVATED CLOTTING [id number] 02:22:52 Test Item Value Reference Range Interpretation Comments Activated Clotting Time 281 sec : 74 -137 seconds, (test code = 3184-9) Baselin e: TESTED AT [facility] [address] [facility], [address]: Public Service Director/Techni willam ID = [id number] for Cassy Vergara [facility] ACTIVATED CLOTTING [id number] 02:22:52 Test Item Value Reference Range Interpretation Comments Activated Clotting Time 281 sec : 74 -137 seconds, (test code = 3184-9) Baselin e: TESTED AT [facility] [address] [facility], [address]: Public Service Director/Techni willam ID = [id number] for Ce Cassy east [facility] MedicinePOCT-[id number] 02:22:52 Test Item Value Reference Range Interpretation Comments ACTIVATED CLOTTING TIME 281 sec : 74 -137 seconds, (BEAKER) (test code = Baseli ne: TESTED AT 441) [facility] [address] [facility], [address]: Public Service Director/Techni willam ID = [id number] for Vlad Gloria COMPREHENSIVE METABOLIC [id number] 02:07:18 Test Item Value Reference Range Interpretation Comments TOTAL PROTEIN 7.3 gm/dL 6.0-8.3 Specimen sligh tly (BEAKER) (test hemolyzed code = 770) ALBUMIN (BEAKER) 4.1 g/dL 3.5-5.0 Specimen sl ightly (test code = 1145) hemolyzed ALKALINE 53 U/L 40-150 PHOSPHATASE (BEAKER) (test code = 346) BILIRUBIN TOTAL 0.8 mg/dL 0.2-1.2 Specimen sli ghtly (BEAKER) (test hemolyzed code = 377) SODIUM (BEAKER) 134 meq/L 136-145 L (test code = 381) POTASSIUM (BEAKER) 3.8 meq/L 3.5-5.1 Specimen slightly (test code = 379) hemolyzed CHLORIDE (BEAKER) 99 meq/L 98-107 (test code = 382) CO2 (BEAKER) (test 22 meq/L 22-29 code = 355) BLOOD UREA 15 mg/dL 7-21 NITROGEN (BEAKER) (test code = 354) CREATININE 1.41 mg/dL 0.57-1.25 H Specimen slight ly (BEAKER) (test hemolyzed code = 358) GLUCOSE RANDOM 411 mg/dL 70-105 HH (BEAKER) (test code = 652) CALCIUM (BEAKER) 9.1 mg/dL 8.4-10.2 (test code = 697) AST (SGOT) 34 U/L 5-34 Specimen slight ly (BEAKER) (test hemolyzed code = 353) ALT (SGPT) 34 U/L 6-55 Specimen slight ly (BEAKER) (test hemolyzed code = 347) EGFR (BEAKER) 60 Interpretatio n of eGFR (test code = 1092) mL/min/1.73 values S tage Description sq m Result G1 Rosa Elena l or high >=90 G2 Mildly decreased 60-89 G3a Mildl y to moderately 45-5 9 G3b Moderately to s everely 30-44 G4 Severl y decreased 15-29 G5 Kidney failure <15Reported eGF R is based on the CKD-EPI 2020 equation that d oes not use a race coefficientEsti mated GFR is not as accur ate as Creatinine Bhakti elyssa in predicting glom erular filtration rate . Estimated GFR is not appl icable for dialysis patien ts Public Service Director ID - GRICELDA LTSH/FREE T4 IF [id number] 02:06:15 Test Item Value Reference Range Interpretation Comments THYROID STIMULATING HORMONE 1.235 uIU/mL 0.350-4.940 (BEAKER) (test code = 772) Public Service Director ID - GRICELDA LB-TYPE NATRIURETIC FACTOR (BNP)2022-05-07 02:04:10 Test Item Value Reference Range Interpretation Comments B-TYPE NATRIURETIC PEPTIDE (BEAKER) < pg/mL 0-100 (test code = 700) Public Service Director ID - GRICELDA LHIGH SENSITIVITY TROPONIN [id number] 01:51:35 Test Item Value Reference Range Interpretation Comments HIGH SENSITIVITY 244 pg/ml See_Comment H [Automated message] TROPONIN I (test code The sy stem which = [id number]) generated this result transmitted ref erence range: <=35. Th e reference range was not used to int erpret this result as normal/abnormal . Public Service Director ID - GRICELDA ZAVALAhe MEDIA REPORTER STAT High Sensitivity Troponin-I results should be used in conjunction with other diagnostic information such as ECG, clinical observations and information, and patient symptoms to aid in the diagnosis of AL.[id number] 01:48:16 Test Item Value Reference Range Interpretation Comments PHOSPHORUS (BEAKER) 1.8 mg/dL 2.3-4.7 L Specimen slightly (test code = 604) hemolyzed Public Service Director ID - GRICELDA LLIPID [id number] 01:48:16 Test Item Value Reference Range Interpretation Comments TRIGLYCERIDES (BEAKER) 131 mg/dL Speci men slightly (test code = 540) hemolyzed CHOLESTEROL (BEAKER) 225 mg/dL Specime n slightly (test code = 631) hemolyzed HDL CHOLESTEROL (BEAKER) 33 mg/dL (test code = 976) LDL CHOLESTEROL 166 mg/dL CALCULATED (BEAKER) (test code = 633) Triglyceride Reference Range: Low Risk <150 Borderline 150-199 High Risk 200-499 Very High Risk >=500Cholesterol Reference Range: Low Risk <200 Borderline 200-239 High Risk >240HDL Cholesterol Reference Range: Low Risk >=60 High Risk <40LDL Cholesterol Reference Range: Optimal <100 Near Optimal 100-129 Borderline 130-159 High 160-189 Very High >=190 Public Service Director ID - GRICELDA [id number] 01:48:15 Test Item Value Reference Range Interpretation Comments MAGNESIUM (BEAKER) 1.8 mg/dL 1.6-2.6 Specimen slightly (test code = 627) hemolyzed Public Service Director ID Agustín MADISON [id number] 01:47:55 Test Item Value Reference Range Interpretation Comments PROTIME (BEAKER) (test 14.7 seconds 11.9-14.2 H code = 759) INR (BEAKER) (test 1.22 See_Comment [Automat ed code = 370) message] The sy stem which generated this result transmitted reference range : <=5.90. The reference range was not used to interpret this result as normal/abnormal . PARTIAL THROMBOPLASTIN 49.2 seconds 22.5-36.0 H TIME (BEAKER) (test code = 760) RECOMMENDED COUMADIN/WARFARIN INR THERAPY RANGESSTANDARD DOSE: 2.0 - 3.0 Includes: PROPHYLAXIS for venous thrombosis, systemic embolization; TREATMENT for venous thrombosis and/or pulmonary embolus.HIGH RISK: Target INR is 2.5-3.5 for patients with mechanical heart valves.PROTHROMBIN [id number] 01:46:57 Test Item Value Reference Range Interpretation Comments PROTIME (BEAKER) 14.7 seconds 11.9-14.2 H (test code = 759) INR (BEAKER) (test 1.22 See_Comment [Automat ed message] code = 370) The system [employer] generated this result transmitted ref erence range: <=5.90. The reference range was not used to int erpret this result as normal/abnormal . RECOMMENDED COUMADIN/WARFARIN INR THERAPY RANGESSTANDARD DOSE: 2.0 - 3.0 Includes: PROPHYLAXIS for venous thrombosis, systemic embolization; TREATMENT for venous thrombosis and/or pulmonary embolus.HIGH RISK: Target INR is 2.5-3.5 for patients with mechanical heart valves.CBC W/PLT COUNT & AUTO [id number] 01:43:11 Test Item Value Reference Range Interpretation Comments WHITE BLOOD CELL COUNT (BEAKER) 17.2 K/ L 3.5-10.5 H (test code = 775) RED BLOOD CELL COUNT (BEAKER) 5.35 M/ L 4.63-6.08 (test code = 761) HEMOGLOBIN (BEAKER) (test code = 16.3 GM/DL 13.7-17.5 410) HEMATOCRIT (BEAKER) (test code = 46.7 % 40.1-51.0 411) MEAN CORPUSCULAR VOLUME (BEAKER) 87 fL 79-92 (test code = 753) MEAN CORPUSCULAR HEMOGLOBIN 30.5 pg 25.7-32.2 (BEAKER) (test code = 751) MEAN CORPUSCULAR HEMOGLOBIN CONC 34.9 GM/DL 32.3-36.5 (BEAKER) (test code = 752) RED CELL DISTRIBUTION WIDTH 12.2 % 11.6-14.4 (BEAKER) (test code = 412) PLATELET COUNT (BEAKER) (test 224 K/CU MM 150-450 code = 756) MEAN PLATELET VOLUME (BEAKER) 10.0 fL 9.4-12.4 (test code = 754) NUCLEATED RED BLOOD CELLS 0 /100 WBC 0-0 (BEAKER) (test code = 413) NEUTROPHILS RELATIVE PERCENT 77 % (BEAKER) (test code = 429) LYMPHOCYTES RELATIVE PERCENT 16 % (BEAKER) (test code = 430) MONOCYTES RELATIVE PERCENT 6 % (BEAKER) (test code = 431) EOSINOPHILS RELATIVE PERCENT 1 % (BEAKER) (test code = 432) BASOPHILS RELATIVE PERCENT 0 % (BEAKER) (test code = 437) NEUTROPHILS ABSOLUTE COUNT 13.36 K/ L 1.78-5.38 H (BEAKER) (test code = 670) LYMPHOCYTES ABSOLUTE COUNT 2.73 K/ L 1.32-3.57 (BEAKER) (test code = 414) MONOCYTES ABSOLUTE COUNT (BEAKER) 0.94 K/ L 0.30-0.82 H (test code = 415) EOSINOPHILS ABSOLUTE COUNT 0.08 K/ L 0.04-0.54 (BEAKER) (test code = 416) BASOPHILS ABSOLUTE COUNT (BEAKER) 0.03 K/ L 0.01-0.08 (test code = 417) IMMATURE GRANULOCYTES-RELATIVE 0.50 % 0.00-1.00 PERCENT (BEAKER) (test code = 2801) [id number] 01:42:03 Test Item Value Reference Range Interpretation Comments ACTIVATED CLOTTING TIME 299 sec : 74 -137 seconds, (BEAKER) (test code = Baseli ne: TESTED AT 441) [address], [facility] 30: Public Service Director/Techni willam ID = [id number] for Rick Chacko LACTIC ACID, [id number] 01:32:12 Test Item Value Reference Range Interpretation Comments LACTATE BLOOD VENOUS 1.93 mmol/L 0.50-2.20 Specime n slightly (2) (BEAKER) (test hemolyzed code = 2872) Public Service Director ID - GRICELDA [id number] 01:28:21 Test Item Value Reference Range Interpretation Comments ACTIVATED CLOTTING TIME 197 sec : 74 -137 seconds, (BEAKER) (test code = Baseli ne: TESTED AT 441) [address], [facility] 30: Public Service Director/Techni willam ID = [id number] for Rick Chacko POCT URINALYSIS, [id number] 13:22:00 Test Item Value Reference Range Interpretation [...] 3267) Lab Interpretation (test code Normal = 56831-2) [facility] URINALYSIS, [id number] 13:22:00 Test Item Value Reference Range Interpretation [...] 3267) Lab Interpretation (test code Normal = 96126-6) [facility] FLU A AND B (MOLECULAR)2020-06-17 14:48:00 Test Item Value Reference Range Interpretation Comments POCT INFLUENZA A (test code = Negative Negative - Negative 3840) POCT INFLUENZA B (test code = Negative Negative - Negative 3841) Lab Interpretation (test code = Normal 81379-8) [facility] [id number] 18:31:09 Multifocal small ill-defined opacities predominantly in the mid/lower lobesconcerning for atypical/viral infection including Covid-19 pneumonia.Correlate clinically. Disclaimer: Generally, the findings on chest imaging in COVID-19 are notspecific, and overlap with other infections, including influenza, H1N1,SARS and MERS. According to the Centers for Disease Control (CDC) and recent statement ofthe [employer], viral testing remains the [...] Disease Control (CDC) and recent statement ofthe [employer], viral testing remains the only specificmethod of diagnosis. Confirmation with the viral test is required, even ifradiologic findings are suggestive of COVID-[address]Preliminary Report Dictatedby Resident: Gabino Stanley MD., have reviewed this study and agree with theabove report. [facility]
--- NOTE | 2023-04-13 21:14 | RAD REPORT ---
EXAM DESCRIPTION: RAD - Chest Single View - 04/13/2023 9:04 pm CLINICAL HISTORY: CHEST PAIN Chest pain. COMPARISON: Chest Single View dated 05/06/2022; CHEST PA AND LAT 2 VIEW dated 10/15/2009; CHEST SINGL E VIEW dated 05/19/2002 FINDINGS: Portable technique limits examination quality. Mild interstitial pulmonary edema suspected. The heart is normal in size. No displaced fractures. IMPRESSION: Mild interstitial pulmonary edema.
[2023-04-13 21:52] LABS: Absolute Lymphocytes (CBC) 2.5 K/uL (0.7-4.9); Hematocrit 49.1 % (39.6-49.0); Lymphocytes % 29.1 % (15.3-44.8); MCV 89.2 fL (80-100); MPV 7.6 fL (7.6-11.3); Platelets 191 thou/uL (152-406)
[2023-04-13 22:12] LABS: Albumin 3.6 g/dL (3.4-5.0); Bilirubin Direct 0.1 mg/dL (0-0.2); Bilirubin Indirect, Calculated 0.4 mg/dL (0.2-0.8); Bilirubin Total 0.5 mg/dL (0.2-1.0); Magnesium 2.2 mg/dL (1.6-2.4); Potassium 3.8 mEq/L (3.5-5.1); Protein, Total 7.4 g/dL (6.4-8.2)
[2023-04-13 22:24] LABS: Protime INR 1.06
[2023-04-13] MEDS ORDERED: HEPARIN 5000 UNIT/ML 1 ML VIAL ONE (22:39)
[2023-04-13] MEDS ORDERED: HEPARIN/D5W 25,000 UNIT/500 ML BAG IV ONE (22:39)
[2023-04-13] MEDS ORDERED: ONDANSETRON 4 MG/2 ML VIAL ONE (23:50)
[2023-04-13] MEDS ORDERED: MORPHINE 4 MG/ML SYR ONE (23:50)
[2023-04-14] MEDS ORDERED: NICOTINE 21 MG/PAT TD ONE (00:30)
[2023-04-14] MEDS ORDERED: HYDROMORPHONE HCL 1 MG/ML INJ ONE ×2 (00:36→02:05)
--- NOTE | 2023-04-14 00:36 | ER ---
Nurse's Notes [facility] Name: Joe Chowdhury Jr Age: 57 yrs Sex: Male : 1965 Arrival Date: 04/13/2023 Time: 20:24 Bed 17 Private MD: Diagnosis: Subsequent non-ST elevation (NSTEMI) myocardial infarction Presentation: 04/13 20:31 Chief complaint: Patient states: chest pain started mid day, ache mid sternal, non rv radiating. took two nitros at home. Coronavirus screen: At this time, the client does not indicate any symptoms associated with coronavirus-19. Ebola Screen: No symptoms or risks identified at this time. Initial Sepsis Screen: Does the patient meet any 2 criteria? No. Patient's initial sepsis screen is negative. Does the patient have a suspected source of infection? No. Patient's initial sepsis screen is negative. Risk Assessment: Do you want to hurt yourself or someone else? Patient reports no desire to harm self or others. Onset of symptoms was April 13, 2023. 20:31 Method Of Arrival: Ambulatory rv 20:31 Acuity: FREDRICK 2 rv Triage Assessment: 20:35 General: Appears comfortable, Behavior is calm, cooperative. Pain: Complains of pain in rv chest. Neuro: Level of Consciousness is awake, alert, obeys commands, Oriented to person, place, time, situation. Cardiovascular: Capillary refill < 3 seconds Patient's skin is warm and dry. Respiratory: Airway is patent Respiratory effort is even, unlabored. GI: No signs and/or symptoms were reported involving the gastrointestinal system. : No signs and/or symptoms were reported regarding the genitourinary system. Derm: Skin is intact. Historical: - Allergies: 20:35 PENICILLINS; rv - PMHx: 20:35 Myocardial infarction; Hypertensive disorder; rv - PSHx: 20:35 cardiac stent; rv - Immunization history:: Adult Immunizations up to date. - Social history:: Smoking status: Patient denies any tobacco usage or history of. - Family history:: not pertinent. Screenin:36 [facility] ED Fall Risk Assessment (Adult) History of falling in the last 3 months, rv including since admission No falls in past 3 months (0 pts) Score/Fall Risk Level 0 - 2 = Low Risk Oriented to surroundings, Maintained a safe environment, Educated pt \\T\\ family on fall prevention, incl call for assistance when getting out of bed. Abuse screen: Denies threats or abuse. Denies injuries from another. Nutritional screening: No deficits noted. Tuberculosis screening: No symptoms or risk factors identified. Assessment: 21:50 General: Appears uncomfortable, well groomed, well developed, well nourished, Behavior me1 is calm, cooperative, appropriate for age, Reports chest pain started mid day, ache mid sternal, non radiating. took two nitros at home with no relief. Pain: Complains of pain in chest Pain does not radiate. Pain currently is 8 out of 10 on a pain scale. Quality of pain is described as burning, Pain began about noon today while sitting. Neuro: Level of Consciousness is awake, alert, obeys commands, Oriented to person, place, time, situation, Appropriate for age. Cardiovascular: Capillary refill < 3 seconds Patient's skin is warm and dry. Chest pain is described as Pain is 8 out of 10 on a pain scale. quality is burning, is located in chest wall began noon episodes are continuous. Respiratory: Airway is patent Respiratory effort is even, unlabored, Respiratory pattern is regular, symmetrical. 22:00 General: Appears comfortable, Behavior is calm, cooperative. Pain: Complains of pain in ha1 chest Pain does not radiate. Pain currently is 5 out of 10 on a pain scale. Quality of pain is described as pressure. Neuro: Level of Consciousness is awake, alert, obeys commands, Oriented to person, place, time, situation. Cardiovascular: Reports chest pain, Heart tones S1 S2 present Capillary refill < 3 seconds Patient's skin is warm and dry. Chest pain quality is pressure. Respiratory: Airway is patent Respiratory effort is even, unlabored, Respiratory pattern is regular, symmetrical. 23:30 Reassessment: Patient and/or family updated on plan of care and expected duration. Pain ha1 level reassessed. Patient is alert, oriented x 3, equal unlabored respirations, skin warm/dry/pink. pain 12/30. 04/14 01:00 Reassessment: Patient and/or family updated on plan of care and expected duration. Pain ha1 level reassessed. Patient is alert, oriented x 3, equal unlabored respirations, skin warm/dry/pink. pain 7/10. 02:00 Reassessment: Patient and/or family updated on plan of care and expected duration. Pain ha1 level reassessed. Patient is alert, oriented x 3, equal unlabored respirations, skin warm/dry/pink. pain 5/10. 02:30 Reassessment: Patient and/or family updated on plan of care and expected duration. Pain ha1 level reassessed. Patient is alert, oriented x 3, equal unlabored respirations, skin warm/dry/pink. pain 4/10 Patient states feeling better. Patient states symptoms have improved. 03:20 Reassessment: Patient and/or family updated on plan of care and expected duration. Pain ha1 level reassessed. Patient is alert, oriented x 3, equal unlabored respirations, skin warm/dry/pink. 04:18 Reassessment: received critical lab result from Jerzy from the Lab. Jerzy jaramillo states"Troponin 20993.8" Notified Dr. Fung with results. Vital Signs: 04/13 20:31 BP 174 / 101; Pulse 87; Resp 17; Temp 98; Pulse Ox 96% ; Weight 122.47 kg; Height 6 ft. rv 5 in. ; 22:00 BP 182 / 82; Pulse 67; Resp 17 S; Pulse Ox 96% on R/A; ha1 23:00 BP 169 / 95; Pulse 71; Resp 17 S; Pulse Ox 96% on R/A; rv 23:30 BP 161 / 88; Pulse 66; Resp 17 S; Pulse Ox 96% on R/A; ha1 04/14 00:00 BP 169 / 96; Pulse 60; Resp 16 S; Pulse Ox 96% on R/A; ha1 00:30 BP 153 / 76; Pulse 68; Resp 17 S; Pulse Ox 98% on R/A; ha1 01:00 BP 149 / 83; Pulse 68; Resp 18 S; Pulse Ox 96% on R/A; ha1 02:00 BP 149 / 86; Pulse 67; Resp 17 S; Pulse Ox 96% on R/A; ha1 02:30 BP 154 / 99; Pulse 67; Resp 17 S; Pulse Ox 96% on R/A; ha1 03:04 BP 149 / 88; Pulse 69; Resp 17 S; Pulse Ox 97% on R/A; ha1 04/13 20:31 Body Mass Index 32.02 (122.47 kg, 195.58 cm) rv [place] Coma Score: 03:10 Eye Response: spontaneous(4). Motor Response: obeys commands(6). Verbal Response: sp4 oriented(5). Total: 15. ED Course: 04/13 20:25 Patient arrived in ED. jj6 20:29 Salty Lam MD is Attending Physician. sp4 20:34 Triage completed. rv 20:35 Arm band placed on right wrist. rv 21:05 XRAY Chest (1 view) In Process Unspecified. EDMS 21:23 Yoselin Montes, BECKA is Primary Nurse. me1 21:47 Basic Metabolic Panel Sent. me1 21:47 CBC with Diff Sent. me1 21:47 LFT's Sent. me1 21:47 Magnesium Sent. me1 21:47 NT PRO-BNP Sent. me1 21:47 PT-INR Sent. me1 21:47 Troponin HS Sent. me1 21:50 Patient has correct armband on for positive identification. Bed in low position. Call me1 light in reach. Side rails up X 1. Provided Education on: POC. Verbalized understanding. . Client placed on continuous cardiac and pulse oximetry monitoring. NIBP monitoring applied. parking regulation enforcement officer on. 21:50 No provider procedures requiring assistance completed. Flushed right forearm. Patient taiwo maintains SpO2 saturation greater than 95% on room air. 22:00 Report received from BECKA Reeder. ha1 22:20 Notified ED physician of a critical lab result(s). Troponin 8,273.1. cm10 22:40 Inserted saline lock: 20 gauge in left forearm, using aseptic technique. Blood cg3 collected. 04/14 01:31 Initiated transfer to [facility], spoke with Lisbeth. wm 02:28 Pt accepted for transfer to [facility] CCU 2 Bed 12 by Shawn Sosa per Lisbeth South. wm 02:28 EMS accepted for transport with ETA \\T\\ 0320. wm 03:33 Patient transferred, IV remains in place. ha1 Administered Medications: 04/13 21:46 Drug: Aspirin PO Chewable Tablet 324 mg PO once; 81 mg tablets x 4 Route: PO; me1 23:50 Follow up: Response: No adverse reaction ha1 21:46 Drug: Nitroglycerin Transdermal Ointment 2 % 1 inches Transdermal once Route: me1 Transdermal; Site: anterior chest wall; 04/14 00:38 Follow up: Response: No adverse reaction 1 04/13 21:47 Drug: Famotidine IVP 20 mg IVP once; dilute with 10 mL 0.9% NaCl; give over 2 minutes me1 Route: IVP; Site: right forearm; 22:42 Drug: Heparin (CO-Bolus No thrombolytic) - HEParin IVP 60 units/kg IVP once; Max 5000 ha1 units {Co-Signature: krishan (Melvin Morales RN).} Route: IVP; Site: left forearm; 23:00 Follow up: Response: No adverse reaction 1 22:43 Drug: Heparin (CO Drip) 12 units/kg/hr - ([place] [address] units, D5W IV 500 ml) IV at ha1 calculated rate Per protocol; Max initial rate 1000 units/hr {Co-Signature: krishan (Melvin Morales RN).} Route: IV; Rate: calculated rate; Site: right forearm; 04/14 03:25 Follow up: Response: No adverse reaction; IV Status: Infusion continued 04/13 23:35 Drug: Ondansetron IVP 4 mg IVP once; over 2 minutes Route: IVP; Site: left forearm; ha1 04/14 00:00 Follow up: Response: No adverse reaction 1 04/13 23:38 Drug: morphine IVP or IV 4 mg IVP once over 4 mins Route: IVP; Infused Over: 4 mins; 1 Site: left forearm; 04/14 00:00 Follow up: Response: No adverse reaction; Pain is unchanged, physician notified; RASS: ha1 Alert and Calm (0) 00:23 Drug: Nicotine Transdermal Patch 21 mg/24 hr 1 patches Transdermal once {Note: right ha1 Deltoid.} Route: Transdermal; Site: affected area; 03:35 Follow up: Response: No adverse reaction ha1 00:29 Drug: HYDROmorphone IVP 1 mg IVP once Route: IVP; Site: left forearm; ha1 01:00 Follow up: Response: No adverse reaction; Pain is decreased; RASS: Alert and Calm (0) ha1 01:50 Drug: HYDROmorphone IVP 1 mg IVP once Route: IVP; Site: left forearm; ha1 02:00 Follow up: Response: No adverse reaction; Pain is decreased; RASS: Alert and Calm (0) ha1 02:25 Drug: Clopidogrel PO 300 mg PO once Route: PO; ha1 03:35 Follow up: Response: No adverse reaction ha1 Medication: 04/13 21:50 VIS not applicable for this client. me1 Outcome: 04/14 00:36 ER care complete, transfer ordered by MD. hairston 03:33 Transferred by ground EMS [place] [facility] [facility] [place] 03:33 Condition: stable 03:33 Discharge instructions given to patient, family, Instructed on the need for transfer, Demonstrated understanding of instructions, 03:40 Patient left the ED. ha1 Signatures: Dispatcher [employer] EDMS Melvin Morales, RN RN rv Melissa Matthew Jennifer j6 Deepti Zamora RN RN ha1 Potepalov, Sergey, MD MD sp4 Martinez, Clarissa RN RN 10 Yoselin Montes RN RN ma1 Chari Covarrubias 3 Melvin Morales RN rv Corrections: (The following items were deleted from the chart) 04/13 20:36 20:35 Allergies: No Known Allergies; rv rv 20:36 20:35 Allergies: Penicillamine; rv rv 21:50 20:31 Chief complaint: Patient states: chest pain started mid day, ache mid sternal, me1 non radiating. took two nitros at home. rv 04/14 04:25 04:18 Reassessment: received critical lab result from Jerzy from the Lab. Notified Dr. clint Fung with results. ha1
--- NOTE | 2023-04-14 00:37 | EDPHYS ---
Physician Documentation [facility] Name: Joe Chowdhury Jr Age: 57 yrs Sex: Male : 1965 Arrival Date: 04/13/2023 Time: 20:24 Bed 17 Private MD: ED Physician Salty Lam HPI: 04/13 20:29 This 57 yrs old Male presents to ER via Unassigned with complaints of Chest sp4 Pain, Shortness Of Breath. 20:36 DC 57-year-old male with history of coronary artery disease history of prior stent to sp4 LAD on 04/26/2022 secondary to STEMI, history of hypertension as well, presents with acute onset of burning midsternal chest pain starting at noon today while he was sitting down. Patient denied pain in the neck denied pain in the left arm denied diaphoresis denied shortness of breath. Patient states he is not on any blood thinners at this time not even on aspirin. Patient to nitroglycerin x 2 at home without any relief and he arrived here for evaluation. . Historical: - Allergies: 20:35 PENICILLINS; rv - PMHx: 20:35 Myocardial infarction; Hypertensive disorder; rv - PSHx: 20:35 cardiac stent; rv - Immunization history:: Adult Immunizations up to date. - Social history:: Smoking status: Patient denies any tobacco usage or history of. - Family history:: not pertinent. ROS: 20:36 Constitutional: Negative for fever, chills, and weight loss, Cardiovascular: Positive sp4 midsternal chest pain, negative dyspnea negative palpitations 20:36 All other systems are negative, Exam: 20:36 Constitutional: This is a well developed, well nourished patient who is awake, alert, sp4 and in no acute distress. Head/Face: Normocephalic, atraumatic. Eyes: Right eye permanent blindness, left eye exam and is normal ENT: Nares patent. No nasal discharge, no septal abnormalities noted. Tympanic membranes are normal and external auditory canals are clear. Oropharynx with no redness, swelling, or masses, exudates, or evidence of obstruction, uvula midline. Mucous membranes moist. Neck: Trachea midline, no thyromegaly or masses palpated, and no cervical lymphadenopathy. Supple, full range of motion without nuchal rigidity, or vertebral point tenderness. Chest/axilla: Normal chest wall appearance and motion. Nontender with no deformity. No lesions are appreciated. Cardiovascular: Regular rate and rhythm with a normal S1 and S2. No gallops, murmurs, or rubs. Normal PMI, no JVD. No pulse deficits. Respiratory: Lungs have equal breath sounds bilaterally, clear to auscultation and percussion. No rales, rhonchi or wheezes noted. No increased work of breathing, no retractions or nasal flaring. Abdomen/GI: Soft, non-tender, with normal bowel sounds. No distension or tympany. No guarding or rebound. No evidence of tenderness throughout. Back: No spinal tenderness. No costovertebral tenderness. Skin: Warm, dry with normal turgor. Normal color with no rashes, no lesions, and no evidence of cellulitis. MS/ Extremity: Pulses equal, no cyanosis. Neurovascular intact. Full, normal range of motion. Neuro: Awake and alert, GCS 15, oriented to person, place, time, and situation. Cranial nerves II-XII grossly intact. Motor strength 5/5 in all extremities. Sensory grossly intact. Psych: Awake, alert, with orientation to person, place and time. Behavior, mood, and affect are within normal limits 20:39 ECG was reviewed by the Attending Physician. EKG at 2028 there is normal sinus sp4 rhythm at the rate of 90, no ST elevation or depression or ectopy, T wave inversion V5 V6 04/14 03:10 ECG was reviewed by the Attending Physician. Repeat EKG 0 134 normal sinus rhythm at a sp4 rate of 67, no ST elevation or depression no ectopy. No sign of ST elevated PR Vital Signs: 04/13 20:31 BP 174 / 101; Pulse 87; Resp 17; Temp 98; Pulse Ox 96% ; Weight 122.47 kg; Height 6 ft. rv 5 in. ; 22:00 BP 182 / 82; Pulse 67; Resp 17 S; Pulse Ox 96% on R/A; ha1 23:00 BP 169 / 95; Pulse 71; Resp 17 S; Pulse Ox 96% on R/A; rv 23:30 BP 161 / 88; Pulse 66; Resp 17 S; Pulse Ox 96% on R/A; ha1 04/14 00:00 BP 169 / 96; Pulse 60; Resp 16 S; Pulse Ox 96% on R/A; ha1 00:30 BP 153 / 76; Pulse 68; Resp 17 S; Pulse Ox 98% on R/A; ha1 01:00 BP 149 / 83; Pulse 68; Resp 18 S; Pulse Ox 96% on R/A; ha1 02:00 BP 149 / 86; Pulse 67; Resp 17 S; Pulse Ox 96% on R/A; ha1 02:30 BP 154 / 99; Pulse 67; Resp 17 S; Pulse Ox 96% on R/A; ha1 03:04 BP 149 / 88; Pulse 69; Resp 17 S; Pulse Ox 97% on R/A; ha1 04/13 20:31 Body Mass Index 32.02 (122.47 kg, 195.58 cm) rv [employer] Coma Score: 03:10 Eye Response: spontaneous(4). Motor Response: obeys commands(6). Verbal Response: sp4 oriented(5). Total: 15. MDM: 04/13 20:30 Patient medically screened. sp4 04/14 03:11 Differential diagnosis: abnormal EKG, acute myocardial infarction, acute pericarditis, sp4 anxiety, coronary artery disease chest wall pain, congestive heart failure Cholelithiasis. HEART Score: History: Highly Suspicious (2), ECG: Non specific repolarization disturbance / LBTB / PM (1), Age: > 45 and < 65 years (1), Risk Factors: > or = 3 Risk factors for atherosclerotic disease (2), Troponin: > or = 3 x Normal Limit (2), Total Score = 8. The patient was given aspirin in the Emergency Department. Data reviewed: vital signs, nurses notes, old medical records, lab test result(s), EKG, radiologic studies, plain films. Consideration of Admission/Observation Escalation of care including admission/observation considered. Management of patient was discussed with the following: District Manager In Training: Discussed with [facility] cardiology. ED course: Patient has highly elevated troponin EKG negative for ST elevated PR. Patient will be transferred to [facility] secondary to lack of cardiology coverage here today.. 04/13 20:30 Order name: Basic Metabolic Panel; Complete Time: 22:18 sp4 04/13 20:30 Order name: CBC with Diff; Complete Time: 22:18 sp4 04/13 20:30 Order name: LFT's; Complete Time: 22:18 sp4 04/13 20:30 Order name: Magnesium; Complete Time: 22:18 sp4 04/13 20:30 Order name: NT PRO-BNP; Complete Time: 22:18 sp4 04/13 20:30 Order name: PT-INR; Complete Time: 23:00 sp4 04/13 20:30 Order name: Troponin HS; Complete Time: 22:18 sp4 04/13 22:41 Order name: Pth,Intact; Complete Time: 00:21 ha1 04/13 22:46 Order name: PTT, Activated Partial Thromb; Complete Time: 23:00 EDMS 04/14 01:58 Order name: Troponin High Sensitivity ha1 04/14 02:51 Order name: Ptt, Activated ha1 04/13 20:30 Order name: XRAY Chest (1 view); Complete Time: 22:18 sp4 04/13 20:30 Order name: EKG; Complete Time: 20:31 sp4 04/14 02:04 Order name: EKG; Complete Time: 02:04 sp4 04/13 20:30 Order name: Cardiac monitoring; Complete Time: 21:47 sp4 04/13 20:30 Order name: EKG - Nurse/Tech; Complete Time: 21:58 sp4 04/13 20:30 Order name: IV Saline Lock; Complete Time: 21:47 sp4 04/13 20:30 Order name: Labs collected and sent; Complete Time: 21:47 sp4 04/13 20:30 Order name: O2 Per Protocol; Complete Time: 21:47 sp4 04/13 20:30 Order name: O2 Sat Monitoring; Complete Time: 21:47 sp4 04/13 21:21 Order name: Labs - recollect needed: green, blue, purple; Complete Time: 21:35 cm10 04/14 02:04 Order name: EKG - Nurse/Tech; Complete Time: 02:07 sp4 04/14 03:13 Order name: NPO; Complete Time: 03:18 sp4 EC/22 20:39 Rate is 90 beats/min. Rhythm is regular, Normal Sinus Rhythm. QRS [place] is Normal. [place] sp4 interval is normal. QRS interval is normal. QT interval is normal. No Q waves. T waves are Inverted in leads V5, V6. No ST changes noted. Clinical impression: No evidence of ischemia. Interpreted by me. Reviewed by me. Administered Medications: 21:46 Drug: Aspirin PO Chewable Tablet 324 mg PO once; 81 mg tablets x 4 Route: PO; me1 23:50 Follow up: Response: No adverse reaction ha1 21:46 Drug: Nitroglycerin Transdermal Ointment 2 % 1 inches Transdermal once Route: me1 Transdermal; Site: anterior chest wall; 04/14 00:38 Follow up: Response: No adverse reaction ha1 04/13 21:47 Drug: Famotidine IVP 20 mg IVP once; dilute with 10 mL 0.9% NaCl; give over 2 minutes me1 Route: IVP; Site: right forearm; 22:42 Drug: Heparin (PR-Bolus No thrombolytic) - HEParin IVP 60 units/kg IVP once; Max 5000 ha1 units {Co-Signature: krishan (Melvin Morales RN).} Route: IVP; Site: left forearm; 23:00 Follow up: Response: No adverse reaction ha1 22:43 Drug: Heparin (PR Drip) 12 units/kg/hr - ([place] [address] units, D5W IV 500 ml) IV at ha1 calculated rate Per protocol; Max initial rate 1000 units/hr {Co-Signature: rv (Melvin Morales RN).} Route: IV; Rate: calculated rate; Site: right forearm; 04/14 03:25 Follow up: Response: No adverse reaction; IV Status: Infusion continued ha1 04/13 23:35 Drug: Ondansetron IVP 4 mg IVP once; over 2 minutes Route: IVP; Site: left forearm; ha1 04/14 00:00 Follow up: Response: No adverse reaction 1 04/13 23:38 Drug: morphine IVP or IV 4 mg IVP once over 4 mins Route: IVP; Infused Over: 4 mins; ha1 Site: left forearm; 04/14 00:00 Follow up: Response: No adverse reaction; Pain is unchanged, physician notified; RASS: ha1 Alert and Calm (0) 00:23 Drug: Nicotine Transdermal Patch 21 mg/24 hr 1 patches Transdermal once {Note: right ha1 Deltoid.} Route: Transdermal; Site: affected area; 03:35 Follow up: Response: No adverse reaction ha1 00:29 Drug: HYDROmorphone IVP 1 mg IVP once Route: IVP; Site: left forearm; ha1 01:00 Follow up: Response: No adverse reaction; Pain is decreased; RASS: Alert and Calm (0) ha1 01:50 Drug: HYDROmorphone IVP 1 mg IVP once Route: IVP; Site: left forearm; ha1 02:00 Follow up: Response: No adverse reaction; Pain is decreased; RASS: Alert and Calm (0) ha1 02:25 Drug: Clopidogrel PO 300 mg PO once Route: PO; ha1 03:35 Follow up: Response: No adverse reaction ha1 Disposition Summary: 04/14/23 00:36 Transfer Ordered Notes: Transfer Location: [facility] sp4 Reason: Higher level of care sp4 Condition: Stable sp4 Problem: new sp4 Symptoms: have improved sp4 Accepting Physician: (04/14/23 03:40) ha1 Diagnosis - Subsequent non-ST elevation (NSTEMI) myocardial infarction sp4 Forms: - Medication Reconciliation Form sp4 - SBAR form sp4 Signatures: Dispatcher [employer] EDGA Silva Del Toro, PROFESSOR OF RHETORIC-C PROFESSOR OF RHETORIC-Ckb Melvin Morales RN RN rv Deepti Zamora RN RN ha1 Salty Lam MD MD sp4 Dominique Martins RN RN cm10 Yoselin Montes RN RN me1 Melvin Morales RN rv Corrections: (The following items were deleted from the chart) 04/13 20:36 20:35 Allergies: No Known Allergies; rv rv 20:36 20:35 Allergies: Penicillamine; rv rv 22:44 22:43 PTT, ACTIVATED+COAG.LAB.BRZ ordered. EDGA EDGA 04/14 03:40 00:36 sp4 ha1
[2023-04-14] MEDS ORDERED: CLOPIDOGREL 75 MG TABLET ONE (02:42)
[2023-04-14 03:49] VITALS: TEMP 98
[2023-04-14 04:13] VITALS: BP 149/88; O2SAT 97
--- NOTE | 2023-04-18 16:59 | EKG ---
Test Date: 2023-04-13 Test Time: 20:29:08 Air Route Controller: RV MEASUREMENT RESULTS: Intervals: Rate: 90 IN: 132 QRSD: 96 QT: 324 QTc: 396 [place]: P: 63 IN: 132 QRS: 62 T: 53 INTERPRETIVE STATEMENTS: Normal sinus rhythm Nonspecific ST and T wave abnormality Abnormal ECG Compared to ECG 05/06/2022 22:48:36 Early repolarization no longer present T-wave abnormality no longer present ST (T wave) deviation still present Electronically Signed On 04-18-23 16:53:56 SUPERVISOR AIR CONDITIONING INSTALLER by Teofilo Ibarra
--- NOTE | 2023-04-18 16:59 | EKG ---
Test Date: 2023-04-14 Test Time: 01:54:12 Hazardous Waste Material Technician: NAIMA MEASUREMENT RESULTS: Intervals: Rate: 67 NV: 140 QRSD: 100 QT: 380 QTc: 401 [place]: P: 67 NV: 140 QRS: 69 T: -31 INTERPRETIVE STATEMENTS: Normal sinus rhythm T wave abnormality, consider inferolateral ischemia Abnormal ECG Compared to ECG 04/13/2023 20:29:08 T-wave abnormality now present Possible ischemia now present ST (T wave) deviation no longer present Electronically Signed On 04-18-23 16:53:43 COLLAR SETTER by Teofilo Ibarra
== END 2023-04-14 03:40 | disposition short-term general hospital (02) ==
LOC: ER 20:24
DX: I22.2 Subsequent non-ST elevation (NSTEMI) myocardial infarction (principal); I21.4 Non-ST elevation (NSTEMI) myocardial infarction; I10 Essential (primary) hypertension; Z95.5 Presence of coronary angioplasty implant and graft; Z88.0 Allergy status to penicillin
CPT/HCPCS: 93005 ×2; 85025; 80048; 36415; 83735; 85610; 80076; 85730 ×2; 84484 ×2; 83970; 83880; 71045; 99285; J1644; J1170 ×2; J2405